=== PATIENT | female | born 1970 | race Caucasian/White ===

== ENCOUNTER 2017-06-01 22:49 | Emergency (ER) | payer OTHER ==
[2017-06-01] MEDS: KETOROLAC 60 MG/2 ML INJ. IM (23:36)
== END 2017-06-01 23:46 | disposition home or self-care (01) ==
LOC: ER 22:49
DX: S30.0XXA Contusion of lower back and pelvis, initial encounter (principal); E78.00 Pure hypercholesterolemia, unspecified; E03.9 Hypothyroidism, unspecified; W54.1XXA Struck by dog, initial encounter; Y93.89 Activity, other specified; Y99.8 Other external cause status; Y92.89 Other specified places as the place of occurrence of the external cause
CPT/HCPCS: 72220; 96372; 99284-25; J1885

== ENCOUNTER 2019-04-20 16:14 | Emergency (ER) | payer OTHER ==
[~2019-04-20] VITALS: Ht 162.6 cm; Wt 61.3 kg
[~2019-04-20 16:14] MED LIST: ERYT1OIN6 OS; NAPR-683 PO; OFLO5DRO OS
[2019-04-20 16:30] VITALS: BP 137/88
--- NOTE | 2019-04-20 17:08 | PHYS DOC ---
Past Medical History Past Medical History: High Cholesterol, Hypothyroid, Other Additional Past Medical Histor: pit tumor Past Surgical History: Other Additional Past Surgical Histo: brain sx Smoking Status: Never Smoker Alcohol Use: Rarely Drug Use: None Adult General Chief Complaint Chief Complaint: BACK PAIN OR INJURY [facility] HPI Patient is a 48 year old female who presents with right lower back pain for the past week. Patient states that the pain has been getting worse over the last several days, states she feels a shooting pain going down her right leg. Denies any history of falls. Denies any history of trauma. Does report she has osteoporosis which has been severe, caused from her thyroid medications. States she has tried some Tylenol this morning, which helped a little bit, but has not tried anything else since then. Denies any fever. Denies any urinary changes. Denies any blood in her urine. Denies history kidney stones. States she has difficulty walking at home, due to the discomfort. Denies loss of bowel or blad debby. Review of Systems Review of Systems Constitutional: Denies fever or chills [] Eyes: Denies change in visual acuity, redness, or eye pain [] HENT: Denies nasal congestion or sore throat [] Respiratory: Denies cough or shortness of breath [] Cardiovascular: No additional information not addressed in HPI [] GI: Denies abdominal pain, nausea, vomiting, bloody stools or diarrhea [] : Denies dysuria or hematuria [] Musculoskeletal: Reports lower back, right hip pain Integument: Denies rash or skin lesions [] Neurologic: Denies headache, focal weakness or sensory changes [] Endocrine: Denies polyuria or polydipsia [] All other systems were reviewed and found to be within normal limits, except as documented in this note. Current Medications Current Medications Current Medications Medications (Trade) Dose Ordered Sig/Eflix Start Time Stop Time Status Last Admin Dose Admin Cyclobenzaprine HCl (Flexeril) 10 mg 1X ONCE 04/20/19 17:15 04/20/19 17:16 DC 04/20/19 17:28 10 MG Ketorolac Tromethamine (Toradol 15mg Vial) 15 mg 1X ONCE 04/20/19 17:15 04/20/19 17:16 DC 04/20/19 17:28 15 MG Allergies Allergies Allergies Coded Allergies Type Severity Reaction Last Updated Verified No Known Drug Allergies 10/18/15 No Physical Exam Physical Exam Constitutional: Well developed, well nourished, no acute distress, non-toxic ap pearance. Chronically frail, appears uncomfortable[] Neck: Normal range of motion, no tenderness, supple, no stridor. [] Cardiovascular:Heart rate regular rhythm, no murmur [] Lungs & Thorax: Bilateral breath sounds clear to auscultation [] Skin: Warm, dry, no erythema, no rash. [] Back: Lower back spinous process tenderness without deformity, no CVA tenderness. No lesions, no bruising noted.[] Extremities: No tenderness, no cyanosis, no clubbing, ROM intact, no edema. Able to raise bilateral legs, increased discomfort when attempting to raise right leg with resulting shooting pain going down leg.[] Neurologic: Alert and oriented X 3, normal motor function, normal sensory function, no focal deficits noted. [] Psychologic: Affect normal, judgement normal, mood normal. [] Current Patient Data Vital Signs Vital Signs Date Time Temp Pulse Resp B/P (MAP) Pulse Ox O2 Delivery O2 Flow Rate FiO2 04/20/19 16:30 98.4 78 20 137/88 (104) 98 Room Air 98.4 EKG EKG [] Radiology/Procedures Radiology/Procedures [] AP and 2 lateral digital radiographs of the lumbar spine were obtained. Minimal S-shaped curvature of the thoracolumbar spine is seen. Degenerative changes consisting of vertebral endplate sclerosis and minimal to mild anterior and posterior vertebral body osteophyte formation is seen involving the mid and lower lumbar disc spaces. Degenerative changes are seen involving the facet joints throughout the mid and lower lumbar spine. No fracture or subluxation of the lumbar vertebrae is noted. Atherosclerotic calcification of the abdominal aorta and its branches is seen. Mild to moderate degenerative changes are seen involving both SI joints. A calcified phlebolith is seen within the pelvis. IMPRESSION: Degenerative changes are seen involving the lumbar spine as discussed above. No acute osseous abnormality is seen. Electronically signed by: Eloy Rai MD (04/20/2019 5:29 PM) [id number] Course & Med Decision Making Course & Med Decision Making Pertinent Labs and Imaging studies reviewed. (See chart for details) []Following medications, patient reports she is feeling better. Patient resting calmly in room at this time. We'll provide prescription for muscle relaxers. Patient to follow up with her primary care provider patient, in agreement with this plan of care with no further questions or concerns Gokul Disclaimer Gokul Disclaimer This electronic medical record was generated, in whole or in part, using a voice recognition dictation system. Departure Departure Impression: Primary Impression: Lumbar pain Disposition: HOME, SELF-CARE Condition: GOOD Referrals: UNKNOWN PCP NAME (PCP) Patient Instructions: Back Pain, Adult Additional Instructions: As we discussed, continue to take Tylenol or ibuprofen for discomfort. You may take the muscle relaxer as prescribed. Try to follow up with her primary care provider early next 5-6 days. Scripts Cyclobenzaprine Hcl (CYCLOBENZAPRINE HCL) 10 Mg Tablet 10 MG PO TID PRN for PAIN for 7 Days, #21 TAB Prov: SEGUNDO HUYNH APRN 04/20/19 SEGUNDO HUYNH APRN Apr 20, 2019 17:07
[2019-04-20] MEDS ORDERED: KETOROLAC 15 MG/ML VIAL. IM ONE (17:15)
[2019-04-20] MEDS ORDERED: CYCLOBENZAPRINE 10 MG TABLET. PO ONE (17:15)
--- NOTE | 2019-04-20 17:33 | RAD ---
Three-view lumbar spine radiographs 04/20/2019 CLINICAL HISTORY: Low back pain. AP and 2 lateral digital radiographs of the lumbar spine were obtained. Minimal S-shaped curvature of the thoracolumbar spine is seen. Degenerative changes consisting of vertebral endplate sclerosis and minimal to mild anterior and posterior vertebral body osteophyte formation is seen involving the mid and lower lumbar disc spaces. Degenerative changes are seen involving the facet joints throughout the mid and lower lumbar spine. No fracture or subluxation of the lumbar vertebrae is noted. Atherosclerotic calcification of the abdominal aorta and its branches is seen. Mild to moderate degenerative changes are seen involving both SI joints. A calcified phlebolith is seen within the pelvis. IMPRESSION: Degenerative changes are seen involving the lumbar spine as discussed above. No acute osseous abnormality is seen. Electronically signed by: Eloy Rai MD (04/20/2019 5:29 PM) [id number]
[2019-04-20] MEDS ORDERED: CYCL10TA2 PO (18:07)
== END 2019-04-20 18:20 | disposition home or self-care (01) ==
LOC: ER 16:14
DX: M54.5 Low back pain (principal); M25.551 Pain in right hip; E78.00 Pure hypercholesterolemia, unspecified; E03.9 Hypothyroidism, unspecified; Z98.890 Other specified postprocedural states
CPT/HCPCS: 72100; 96372; 99283; J1885

== ENCOUNTER 2019-10-13 17:09 | Inpatient (IN) | payer OTHER ==
[~2019-10-13] VITALS: Ht 162.6 cm; Wt 52.5 kg
[~2019-10-13 17:09] MED LIST changes: +CYCL10TA2 PO
[2019-10-13] MEDS ORDERED: ONDANSETRON PF 4 MG/2 ML VIAL. IVP ONE (17:15)
[2019-10-13] MEDS ORDERED: fentaNYL PF VIAL 100 MCG/2 ML VIAL IVP ONE (17:15)
[2019-10-13] MEDS ORDERED: FAMOTIDINE 20 MG/2 ML VIAL IVP ONE (17:15)
[2019-10-13] MEDS ORDERED: IV NORMAL SALINE 1000ML BAG 1,000 ML IV ONE (17:30)
[2019-10-13 17:35] LABS: BASO # 0.1 x10^3/uL (0.0-0.2); BASO % 1 % (0-3); EOS # 0.1 x10^3/uL (0.0-0.7); EOS % 1 % (0-3); HEMATOCRIT 41.1 % (36.0-47.0); HEMOGLOBIN 14.5 g/dL (12.0-15.5); LYMPH # 2.9 x10^3/uL (1.0-4.8); LYMPH % 26 % (24-48); MEAN CORPUSCULAR HEMOGLOBIN 34 pg (25-35); MEAN CORPUSCULAR HGB CONC 35 g/dL (31-37); MEAN CORPUSCULAR VOLUME 97 fL (79-100); MONO # 0.5 x10^3/uL (0.0-1.1); MONO % 5 % (0-9); NEUT # 7.4 x10^3/uL (1.8-7.7); NEUT % 67 % (31-73); PLATELET COUNT 214 x10^3/uL (140-400); RED BLOOD COUNT 4.25 x10^6/uL (3.50-5.40); RED CELL DISTRIBUTION WIDTH 12.4 % (11.5-14.5); WHITE BLOOD COUNT 10.9 x10^3/uL (4.0-11.0)
--- NOTE | 2019-10-13 17:38 | PHYS DOC ---
Past Medical History Past Medical History: High Cholesterol, Hypothyroid, Other Additional Past Medical Histor: PITUITARY TUMOR (LIONEL CAMPBELL DO) Past Surgical History: Other Additional Past Surgical Histo: THYROID, PITUITARY TUMOR (LIONEL CAMPBELL DO) Smoking Status: Never Smoker Alcohol Use: Rarely Drug Use: None (LIONEL CAMPBELL DO) General Adult EDM: Chief Complaint: ABDOMINAL PAIN HPI: HPI: Patient is a 49-year-old female presenting with acute abdominal pain that started this morning at approximately 0900. Patient was referred from a local urgent care after being evaluated due to significant pain and concern for possible appendicitis. Patient describes the pain as sharp and inner right lower abdomen. Patient rates the pain at a "12 out of 10" that has been present throughout the day and has been associated with nausea and vomiting. Patient has not had anything to eat or drink since last night at 10 PM. Patient denies any COVID-19 contacts or symptoms. Patient was recently tested for COVID-19 last week which resulted in a negative test. Patient denies . Reports she is postmenopausal and hasn't had a period in "years." (LIONEL CAMPBELL DO) Review of Systems: Review of Systems: Constitutional: Denies fever or chills Eyes: Denies redness or eye pain HENT: Denies nasal congestion or sore throat Respiratory: Denies cough or shortness of breath Cardiovascular: Denies chest pain or palpitations GI: Patient endorses right lower abdominal pain, nausea, and vomiting : Denies dysuria or hematuria Musculoskeletal: Denies back pain or joint pain Integument: Denies rash or skin lesions Neurologic: Denies headache, focal weakness or sensory changes Complete systems were reviewed and found to be within normal limits, except as documented in this note. (LIONEL CAMPBELL DO) Current Medications: Current Medications Medications (Trade) Dose Ordered Sig/Felix Start Time Stop Time Status Last Admin Dose Admin Famotidine (Pepcid Vial) 20 mg 1X ONCE 10/13/19 17:15 10/13/19 17:18 DC Fentanyl Citrate (Fentanyl 2ml Vial) 50 mcg 1X ONCE 10/13/19 17:15 10/13/19 17:18 DC Ondansetron HCl (Zofran) 4 mg 1X ONCE 10/13/19 17:15 10/13/19 17:18 DC Sodium Chloride 1,000 ml @ 1,000 mls/hr 1X ONCE 10/13/19 17:30 10/13/19 18:29 (LIONEL CAMPBELL DO) Allergies: Allergies: Allergies Coded Allergies Type Severity Reaction Last Updated Verified No Known Drug Allergies 10/18/15 No (LIONEL CAMPBELL DO) Physical Exam: PE: Constitutional: Well developed, well nourished, moderate acute distress, non- toxic appearance HENT: Normocephalic, atraumatic Eyes: Conjunctiva normal, no discharge Neck: Normal range of motion, supple Lungs & Thorax: Equal chest rise and fall bilaterally, no respiratory distress Abdomen: Soft, tender to palpation in right lower quadrant, diffusely tender and remaining 3, no ecchymosis or rashes present, voluntary guarding Skin: Warm, dry, no erythema, no rash Back: No tenderness, no CVA tenderness Extremities: No tenderness, ROM intact, no edema Neurologic: Alert and oriented X 3, no focal deficits noted Psychologic: Affect normal, judgment normal (LIONEL CAMPBELL DO) Current Patient Data: Vital Signs: Vital Signs Date Time Temp Pulse Resp B/P (MAP) Pulse Ox O2 Delivery O2 Flow Rate FiO2 10/13/19 17:12 97.9 85 20 130/67 (88) 97 Room Air 97.9 (LIONEL CAMPBELL DO) Labs: Laboratory Tests Test 10/13/19 17:20 10/13/19 17:25 White Blood Count 10.9 x10^3/uL Red Blood Count 4.25 x10^6/uL Hemoglobin 14.5 g/dL Hematocrit 41.1 % Mean Corpuscular Volume 97 fL Mean Corpuscular Hemoglobin 34 pg Mean Corpuscular Hemoglobin Concent 35 g/dL Red Cell Distribution Width 12.4 % Platelet Count 214 x10^3/uL Neutrophils (%) (Auto) 67 % Lymphocytes (%) (Auto) 26 % Monocytes (%) (Auto) 5 % Eosinophils (%) (Auto) 1 % Basophils (%) (Auto) 1 % Neutrophils # (Auto) 7.4 x10^3/uL Lymphocytes # (Auto) 2.9 x10^3/uL Monocytes # (Auto) 0.5 x10^3/uL Eosinophils # (Auto) 0.1 x10^3/uL Basophils # (Auto) 0.1 x10^3/uL Prothrombin Time 12.4 SEC Prothromb Time International Ratio 1.0 Activated Partial Thromboplast Time 31 SEC Sodium Level 134 mmol/L Potassium Level 3.7 mmol/L Chloride Level 97 mmol/L Carbon Dioxide Level 24 mmol/L Anion Gap 13 Blood Urea Nitrogen 7 mg/dL Creatinine 0.9 mg/dL Estimated GFR (Cockcroft-Gault) 66.8 BUN/Creatinine Ratio 8 Glucose Level 82 mg/dL Lactic Acid Level 1.9 mmol/L Calcium Level 9.0 mg/dL Magnesium Level 1.7 mg/dL Total Bilirubin 0.8 mg/dL Aspartate Amino Transf (AST/SGOT) 201 U/L Alanine Aminotransferase (ALT/SGPT) 135 U/L Alkaline Phosphatase 179 U/L Total Protein 7.4 g/dL Albumin 4.1 g/dL Albumin/Globulin Ratio 1.2 Lipase 91 U/L Current Medications Medications (Trade) Dose Ordered Sig/Felix Route PRN Reason Start Time Stop Time Status Last Admin Dose Admin Fentanyl Citrate (Fentanyl 2ml Vial) 50 mcg 1X ONCE IVP 10/13/19 17:15 10/13/19 17:18 DC 10/13/19 17:40 Ondansetron HCl (Zofran) 4 mg 1X ONCE IVP 10/13/19 17:15 10/13/19 17:18 DC 10/13/19 17:40 Famotidine (Pepcid Vial) 20 mg 1X ONCE IVP 10/13/19 17:15 10/13/19 17:18 DC 10/13/19 17:40 Sodium Chloride 1,000 ml @ 1,000 mls/hr 1X ONCE IV 10/13/19 17:30 10/13/19 18:29 DC 10/13/19 17:38 Iohexol (Omnipaque 240 Mg/ml) 30 ml 1X ONCE PO 10/13/19 18:15 10/13/19 18:18 DC 10/13/19 18:15 Iohexol (Omnipaque 300 Mg/ml) 75 ml 1X ONCE IV 10/13/19 18:15 10/13/19 18:18 DC 10/13/19 18:15 Fentanyl Citrate (Fentanyl 2ml Vial) 50 mcg 1X ONCE IV 10/13/19 18:45 10/13/19 18:46 DC 10/13/19 18:34 Info (CONTRAST GIVEN -- Rx MONITORING) 1 each PRN DAILY PRN MC SEE COMMENTS 10/13/19 18:30 10/15/19 18:29 Magnesium Sulfate 50 ml @ 25 mls/hr 1X ONCE IV 10/13/19 19:30 10/13/19 21:29 10/13/19 20:03 Piperacillin Sod/ Tazobactam Sod 3.375 gm/Sodium Chloride 50 ml @ 100 mls/hr 1X ONCE IV 10/13/19 20:00 10/13/19 20:29 Cancel Morphine Sulfate (Morphine Sulfate) 4 mg 1X ONCE IV 10/13/19 19:45 10/13/19 19:46 DC 10/13/19 19:37 Ondansetron HCl (Zofran) 4 mg PRN Q8HRS PRN IV NAUSEA/VOMITING 10/13/19 20:00 10/14/19 19:59 Morphine Sulfate (Morphine Sulfate) 4 mg PRN Q2HR PRN IV PAIN 10/13/19 20:00 10/14/19 19:59 Sodium Chloride 1,000 ml @ 125 mls/hr Q8H IV 10/13/19 19:53 10/14/19 19:52 10/13/19 19:53 Piperacillin Sod/ Tazobactam Sod 3.375 gm/Sodium Chloride 50 ml @ 100 mls/hr 1X IV 10/13/19 20:00 Vital Signs: Vital Signs Date Time Temp Pulse Resp B/P (MAP) Pulse Ox O2 Delivery O2 Flow Rate FiO2 10/13/19 18:17 82 18 123/75 (91) 97 Room Air 10/13/19 17:12 97.9 85 20 130/67 (88) 97 Room Air 97.9 (KENNY DE JESUS MD) Radiology/Procedures: Radiology/Procedures: [facility] [address] [place] [address] IMAGING REPORT Signed PATIENT: PETEY SEO ACCOUNT: [id number] : 1970 LOCATION: ER AGE: 49 SEX: F EXAM STATUS: REG ER ORD. PHYSICIAN: LIONEL CAMPBELL DO REASON: RLQ abdominal pain eval for acute appendicitis PROCEDURE: CT ABD PELV W/ORAL&IV CONTRAST CT abdomen and pelvis with contrast History: Right lower quadrant abdominal pain Technique: After the administration of intravenous contrast, CT imaging was performed of the abdomen and pelvis. Oral contrast was also given. Multiplanar images are reviewed. Exposure: One or more of the following individualized dose reduction techniques were utilized for this examination: 1. Automated exposure control 2. Adjustment of the mA and/or kV according to patient size 3. Use of iterative reconstruction technique. Comparison: None Findings: As best seen on images 58 through 62, there is dilated appendix with some internal fluid left at 1.6 m in caliber. There is some adjacent mild hazy and strandy change. There is wall thickening greater near the orifice of appendix. No abscess or free air is identified. Remainder of the bowel is not significantly dilated. There is diffuse prominent hepatic steatosis. Gallbladder is present without obvious mucosal abnormality by CT. Both kidneys enhance, no significant hydronephrosis. There is a 1 cm cyst of the mid to inferior left kidney, also 1 cm cyst of the inferior left kidney. Small hypodense focus of the mid to superior left kidney 0.4 cm is too small to accurately characterize. There is 2.5 cm superior right renal cyst, adjacent smaller focus about 0.7 cm otherwise difficult to accurately characterize given smaller size. There is no adrenal nodularity. No focal abnormality is identified of the pancreas or spleen. There is a small accessory spleen There is left lower lobe calcified nodule at the lung base. There is a 0.3 similar noncalcified left lower lobe pulmonary nodule image 3 series 2. There is mild calcified plaque of the abdominal aorta. Impression: 1. There is evidence of acute appendicitis, no abscess or free air. 2. There is diffuse prominent hepatic steatosis. 3. There are bilateral renal cysts, some other smaller hypodense foci of the kidneys bilaterally too small to further accurately characterize. 4. There is a small left lower lobe noncalcified pulmonary nodule. If increased risk factors for neoplasm, optional 12 month follow-up could be performed as per revised Fleischner guidelines, no additional follow up needed if low risk factors. Electronically signed by: Juan Pablo Berry MD (10/13/2019 7:15 PM) [facility] DICTATED and SIGNED BY: JUAN PABLO BERRY MD DATE: 10/13/191914 (KENNY DE JESUS MD) Course & Med Decision Making: Course & Med Decision Making Pertinent Labs and Imaging studies reviewed. (See chart for details) 49-year-old female referred to the ED by local urgent care due to severe right lower quadrant pain that started this morning. Labs obtained and posted to chart. WBC and lactic acid within normal limits. Hypomagnesemia addressed. LFTs elevated. CT of the abdomen was ordered and labs were drawn. Pain medications were provided and awaiting results. Concern for acute appendicitis. 1800- Sign out given Dr. De Jesus for further evaluation and final disposition. Discussed current findings and plan with patient, who acknowledges understanding and agreement. (LIONEL CAMPBELL DO) Course & Med Decision Making Received signout from Dr. Campbell regarding patient with right lower quadrant pain. CT shows acute sinusitis. Zosyn has been ordered. Discussed with Dr. Godwin who will operate on the patient the morning. Patient will be admitted to Dr. King. (KENNY DE JESUS MD) Dragon Disclaimer: Dragon Disclaimer: This electronic medical record was generated, in whole or in part, using a voice recognition dictation system. (LIONEL CAMPBELL DO) Departure Departure Impression: Primary Impression: Acute appendicitis Additional Impressions: Abdominal pain Qualified Codes: R10.31 - Right lower quadrant pain Hypomagnesemia Elevated LFTs Disposition: ADMITTED INPATIENT Admitting Physician: SELIN (KENNY DE JESUS MD) Condition: STABLE (dinesh) Referrals: NO PCP (PCP) Justicifation of Admission Dx: Justifications for Admission: Justification of Admission Dx: N/A (LIONEL CAMPBELL DO) Justification of Admission Dx: Yes (KENNY DE JESUS MD) LIONEL CAMPBELL DO Oct 13, 2019 17:38 KENNY DE JESUS MD Oct 13, 2019 19:25
[2019-10-13 17:45] LABS: PROTHROMBIN TIME PATIENT 12.4 SEC (11.7-14.0)
[2019-10-13 18:03] LABS: CREATININE 0.9 mg/dL (0.6-1.0); GFR 66.8; POTASSIUM 3.7 mmol/L (3.5-5.1)
[2019-10-13 18:09] LABS: ALBUMIN 4.1 g/dL (3.4-5.0); ALBUMIN/GLOBULIN RATIO 1.2 (1.0-1.7); TOTAL BILIRUBIN 0.8 mg/dL (0.2-1.0); TOTAL PROTEIN 7.4 g/dL (6.4-8.2)
[2019-10-13] MEDS ORDERED: IOHEXOL 240 MG/ML 50ML VIAL. PO ONE (18:15)
[2019-10-13] MEDS ORDERED: IOHEXOL 300 MG/ML 100ML VIAL. IV ONE (18:15)
[2019-10-13] MEDS ORDERED: CONTRAST GIVEN. MC PRN (18:30)
[2019-10-13] MEDS ORDERED: fentaNYL PF VIAL 100 MCG/2 ML VIAL IV ONE (18:45)
--- NOTE | 2019-10-13 19:18 | RAD ---
CT abdomen and pelvis with contrast History: Right lower quadrant abdominal pain Technique: After the administration of intravenous contrast, CT imaging was performed of the abdomen and pelvis. Oral contrast was also given. Multiplanar images are reviewed. Exposure: One or more of the following individualized dose reduction techniques were utilized for this examination: 1. Automated exposure control 2. Adjustment of the mA and/or kV according to patient size 3. Use of iterative reconstruction technique. Comparison: None Findings: As best seen on images 58 through 62, there is dilated appendix with some internal fluid left at 1.6 m in caliber. There is some adjacent mild hazy and strandy change. There is wall thickening greater near the orifice of appendix. No abscess or free air is identified. Remainder of the bowel is not significantly dilated. There is diffuse prominent hepatic steatosis. Gallbladder is present without obvious mucosal abnormality by CT. Both kidneys enhance, no significant hydronephrosis. There is a 1 cm cyst of the mid to inferior left kidney, also 1 cm cyst of the inferior left kidney. Small hypodense focus of the mid to superior left kidney 0.4 cm is too small to accurately characterize. There is 2.5 cm superior right renal cyst, adjacent smaller focus about 0.7 cm otherwise difficult to accurately characterize given smaller size. There is no adrenal nodularity. No focal abnormality is identified of the pancreas or spleen. There is a small accessory spleen There is left lower lobe calcified nodule at the lung base. There is a 0.3 similar noncalcified left lower lobe pulmonary nodule image 3 series 2. There is mild calcified plaque of the abdominal aorta. Impression: 1. There is evidence of acute appendicitis, no abscess or free air. 2. There is diffuse prominent hepatic steatosis. 3. There are bilateral renal cysts, some other smaller hypodense foci of the kidneys bilaterally too small to further accurately characterize. 4. There is a small left lower lobe noncalcified pulmonary nodule. If increased risk factors for neoplasm, optional 12 month follow-up could be performed as per revised Fleischner guidelines, no additional follow up needed if low risk factors. Electronically signed by: Yung Cagle MD (10/13/2019 7:15 PM) [facility]
[2019-10-13] MEDS ORDERED: MAGNESIUM SULFATE 2GM 50 ML IV ONE (19:30)
[2019-10-13] MEDS ORDERED: MORPHINE SULFATE 4 MG/ML VIAL. IV ONE (19:45)
[2019-10-13] MEDS: IV NORMAL SALINE 1000ML BAG 1,000 ML IV SCH (19:53)
[2019-10-13] MEDS ORDERED: PIPERACILLIN/TAZOBACTAM 3.375 GM in IV NORMAL SALINE 50ML 50 ML IV ONE (20:00)
[2019-10-13] MEDS ORDERED: PIPERACILLIN/TAZOBACTAM 3.375 GM in IV NORMAL SALINE 50ML 50 ML IV SCH (20:00)
[2019-10-13 21:00] LABS: BILIRUBIN,URINE NEGATIVE (NEG); CLARITY,URINE CLEAR; COLOR,URINE YELLOW; NITRITE,URINE NEGATIVE (NEG); PH,URINE 6.5 (<5.0-8.0); PROTEIN,URINE NEGATIVE (NEG-TRACE)
[2019-10-13 21:06] LABS: BACTERIA,URINE 0 /HPF (0-FEW); RBC,URINE 0 /HPF (0-2); SQUAMOUS EPITHELIAL CELL,UR FEW /LPF
--- NOTE | 2019-10-13 21:59 | PDOC1 ---
History and Physical Date of Service: DOS: DATE: 10/13/19 TIME: 21:55 Chief Complaint: Chief Complain: Acute abdominal pain History of Present Illness: HPI: Patient is a 49-year-old female with past medical history of hypothyroidism, pituitary mass status post resection, hype osteoporosis who presents with abdominal pain that started approximately 9:00 this morning. Patient is referred from a local urgent care and concern for possible appendicitis. Patient's pain is described as sharp and in the right lower quadrant. Pain is 10 out of 10. There is associated nausea vomiting. Patient has not eating anything since 10:00 last night. Denies shortness of breath, dysuria, bloody stools. 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 History of pituitary surgery for pituitary mass C-sections Allergies: Allergies: Coded Allergies: No Known Drug Allergies (Unverified , 10/18/15) Family History: Family History: Review and none reported Social History: Social History: Drinks bourbon daily Current Medications: Current Medications Current Medications Fentanyl Citrate (Fentanyl 2ml Vial) 50 mcg 1X ONCE IVP Last administered on 10/13/19at 17:40; Start 10/13/19 at 17:15; Stop 10/13/19 at 17:18; Status DC Ondansetron HCl (Zofran) 4 mg 1X ONCE IVP Last administered on 10/13/19at 17:40; Start 10/13/19 at 17:15; Stop 10/13/19 at 17:18; Status DC Famotidine (Pepcid Vial) 20 mg 1X ONCE IVP Last administered on 10/13/19at 17:40; Start 10/13/19 at 17:15; Stop 10/13/19 at 17:18; Status DC Sodium Chloride 1,000 ml @ 1,000 mls/hr 1X ONCE IV Last administered on 10/13/19at 17:38; Start 10/13/19 at 17:30; Stop 10/13/19 at 18:29; Status DC Iohexol (Omnipaque 240 Mg/ml) 30 ml 1X ONCE PO Last administered on 10/13/19at 18:15; Start 10/13/19 at 18:15; Stop 10/13/19 at 18:18; Status DC Iohexol (Omnipaque 300 Mg/ml) 75 ml 1X ONCE IV Last administered on 10/13/19at 18:15; Start 10/13/19 at 18:15; Stop 10/13/19 at 18:18; Status DC Fentanyl Citrate (Fentanyl 2ml Vial) 50 mcg 1X ONCE IV Last administered on 10/13/19at 18:34; Start 10/13/19 at 18:45; Stop 10/13/19 at 18:46; Status DC Info (CONTRAST GIVEN -- Rx MONITORING) 1 each PRN DAILY PRN MC SEE COMMENTS; Start 10/13/19 at 18:30; Stop 10/15/19 at 18:29 Magnesium Sulfate 50 ml @ 25 mls/hr 1X ONCE IV Last administered on 10/13/19at 20:03; Start 10/13/19 at 19:30; Stop 10/13/19 at 21:29; Status DC Piperacillin Sod/ Tazobactam Sod 3.375 gm/Sodium Chloride 50 ml @ 100 mls/hr 1X ONCE IV ; Start 10/13/19 at 20:00; Stop 10/13/19 at 20:29; Status Cancel Morphine Sulfate (Morphine Sulfate) 4 mg 1X ONCE IV Last administered on 10/13/19at 19:37; Start 10/13/19 at 19:45; Stop 10/13/19 at 19:46; Status DC Ondansetron HCl (Zofran) 4 mg PRN Q8HRS PRN IV NAUSEA/VOMITING; Start 10/13/19 at 20:00; Stop 10/14/19 at 19:59 Morphine Sulfate (Morphine Sulfate) 4 mg PRN Q2HR PRN IV PAIN; Start 10/13/19 at 20:00; Stop 10/14/19 at 19:59 Sodium Chloride 1,000 ml @ 125 mls/hr Q8H IV Last administered on 10/13/19at 19:53; Start 10/13/19 at 19:53; Stop 10/14/19 at 19:52 Piperacillin Sod/ Tazobactam Sod 3.375 gm/Sodium Chloride 50 ml @ 100 mls/hr 1X IV ; Start 10/13/19 at 20:00 Active Scripts Active Cyclobenzaprine Hcl 10 Mg Tablet 10 Mg PO TID PRN 7 Days Naprosyn (Naproxen) 500 Mg Tablet 500 Mg PO BID Ocuflox (Ofloxacin) 5 Ml Drops 1 Drop OS QID Use during the day and while outside the home. Erythromycin (Erythromycin Base) 3.5 Gm Oint...g. 1 [place] OS BID Use at home and at night. ROS: Review of Systems Review of System REVIEW OF SYSTEMS: GENERAL: Denies weakness SKIN: No bruising, hair changes or rashes. EYES: No blurred, double or loss of vision. NOSE AND THROAT: No history of nosebleeds, hoarseness or sore throat. HEART: No history of palpitations, chest pain or shortness of breath on exertion. LUNGS: Denies cough, hemoptysis, wheezing or shortness of breath. GASTROINTESTINAL: Denies changes in appetite, nausea, vomiting, diarrhea or constipation. GENITOURINARY: No history of frequency, urgency, hesitancy or nocturia. NEUROLOGIC: Denies history of numbness, tingling, or tremor. PSYCHIATRIC: No history of panic, anxiety or depression. ENDOCRINE: No history of heat or cold intolerance, polyuria or polydipsia. EXTREMITIES: Denies joint pain, pain on walking or stiffness. Physical Exam: Vital Signs: Vital Signs Date Time Temp Pulse Resp B/P (MAP) Pulse Ox O2 Delivery O2 Flow Rate FiO2 10/13/19 21:20 80 101/65 (77) 93 Room Air 10/13/19 18:17 18 10/13/19 17:12 97.9 97.9 Physcial Exam: GEN: No apparent distress. Alert and oriented HEENT: Normal cephalic, atraumatic, external auditory canals are patent EYES: Extraocular muscles are intact, pupil are equally round and reactive to light and accommodation MUSCULOSKELETAL: Well developed , well nourished, good range of motion ENDOCRINE: No thyromegaly was palpated LYMPHATICS: No cervical chain or axillary nodes were noted HEMATOPOIETIC: No bruising NECK: Supple, no JVD, no thyromegaly was noted LUNGS: Clear to auscultation in all lung fierro without rhonchi or wheezing HEART: RRR, S!, S2 present. Peripheral pulses intact, no obvious murmurs noted ABDOMEN: Soft, nontender. Positive bowel sounds, no organomegaly, normal bowel sounds EXTREMITIES: Without clubbing, cyanosis, or edema. Pedal pulses intact. Negative Homans sign NEUROLOGIC: Normal speech and tone. A&O x 3, moves all extremities, no obvious focal deficits PSYCHIATRIC: Normal affect, normal mood. Stable SKIN: No ulcerations or rashes, good skin turgor, no jaundice VASCULAR: Good capillary refill, neurovascular bundle appears to be intact Labs: Labs: Laboratory Tests Test 10/13/19 17:20 10/13/19 17:25 10/13/19 20:44 White Blood Count 10.9 x10^3/uL (4.0-11.0) Red Blood Count 4.25 x10^6/uL (3.50-5.40) Hemoglobin 14.5 g/dL (12.0-15.5) Hematocrit 41.1 % (36.0-47.0) Mean Corpuscular Volume 97 fL (79-100) Mean Corpuscular Hemoglobin 34 pg (25-35) Mean Corpuscular Hemoglobin Concent 35 g/dL (31-37) Red Cell Distribution Width 12.4 % (11.5-14.5) Platelet Count 214 x10^3/uL (140-400) Neutrophils (%) (Auto) 67 % (31-73) Lymphocytes (%) (Auto) 26 % (24-48) Monocytes (%) (Auto) 5 % (0-9) Eosinophils (%) (Auto) 1 % (0-3) Basophils (%) (Auto) 1 % (0-3) Neutrophils # (Auto) 7.4 x10^3/uL (1.8-7.7) Lymphocytes # (Auto) 2.9 x10^3/uL (1.0-4.8) Monocytes # (Auto) 0.5 x10^3/uL (0.0-1.1) Eosinophils # (Auto) 0.1 x10^3/uL (0.0-0.7) Basophils # (Auto) 0.1 x10^3/uL (0.0-0.2) Prothrombin Time 12.4 SEC (11.7-14.0) Prothromb Time International Ratio 1.0 (0.8-1.1) Activated Partial Thromboplast Time 31 SEC (24-38) Sodium Level 134 mmol/L (136-145) Potassium Level 3.7 mmol/L (3.5-5.1) Chloride Level 97 mmol/L (98-107) Carbon Dioxide Level 24 mmol/L (21-32) Anion Gap 13 (6-14) Blood Urea Nitrogen 7 mg/dL (7-20) Creatinine 0.9 mg/dL (0.6-1.0) Estimated GFR (Cockcroft-Gault) 66.8 BUN/Creatinine Ratio 8 (6-20) Glucose Level 82 mg/dL (70-99) Lactic Acid Level 1.9 mmol/L (0.4-2.0) Calcium Level 9.0 mg/dL (8.5-10.1) Magnesium Level 1.7 mg/dL (1.8-2.4) Total Bilirubin 0.8 mg/dL (0.2-1.0) Aspartate Amino Transf (AST/SGOT) 201 U/L (15-37) Alanine Aminotransferase (ALT/SGPT) 135 U/L (14-59) Alkaline Phosphatase 179 U/L (46-116) Total Protein 7.4 g/dL (6.4-8.2) Albumin 4.1 g/dL (3.4-5.0) Albumin/Globulin Ratio 1.2 (1.0-1.7) Lipase 91 U/L (73-393) Urine Collection Type Unknown Urine Color Yellow Urine Clarity Clear Urine pH 6.5 (<5.0-8.0) Urine Specific [place] 1.020 (1.000-1.030) Urine Protein Negative mg/dL (NEG-TRACE) Urine Glucose (UA) Negative mg/dL (NEG) Urine Ketones (Stick) Trace mg/dL (NEG) Urine Blood Negative (NEG) Urine Nitrite Negative (NEG) Urine Bilirubin Negative (NEG) Urine Urobilinogen Dipstick 1.0 mg/dL (0.2 mg/dL) Urine Leukocyte Esterase Small (NEG) Urine RBC 0 /HPF (0-2) Urine WBC 1-4 /HPF (0-4) Urine Squamous Epithelial Cells Few /LPF Urine Bacteria 0 /HPF (0-FEW) Urine Mucus Mod /LPF SARS-CoV-2 Antigen (Rapid) Negative (NEGATIVE) Laboratory Tests Test 10/13/19 17:20 10/13/19 17:25 10/13/19 20:44 White Blood Count 10.9 x10^3/uL (4.0-11.0) Red Blood Count 4.25 x10^6/uL (3.50-5.40) Hemoglobin 14.5 g/dL (12.0-15.5) Hematocrit 41.1 % (36.0-47.0) Mean Corpuscular Volume 97 fL (79-100) Mean Corpuscular Hemoglobin 34 pg (25-35) Mean Corpuscular Hemoglobin Concent 35 g/dL (31-37) Red Cell Distribution Width 12.4 % (11.5-14.5) Platelet Count 214 x10^3/uL (140-400) Neutrophils (%) (Auto) 67 % (31-73) Lymphocytes (%) (Auto) 26 % (24-48) Monocytes (%) (Auto) 5 % (0-9) Eosinophils (%) (Auto) 1 % (0-3) Basophils (%) (Auto) 1 % (0-3) Neutrophils # (Auto) 7.4 x10^3/uL (1.8-7.7) Lymphocytes # (Auto) 2.9 x10^3/uL (1.0-4.8) Monocytes # (Auto) 0.5 x10^3/uL (0.0-1.1) Eosinophils # (Auto) 0.1 x10^3/uL (0.0-0.7) Basophils # (Auto) 0.1 x10^3/uL (0.0-0.2) Prothrombin Time 12.4 SEC (11.7-14.0) Prothromb Time International Ratio 1.0 (0.8-1.1) Activated Partial Thromboplast Time 31 SEC (24-38) Sodium Level 134 mmol/L (136-145) Potassium Level 3.7 mmol/L (3.5-5.1) Chloride Level 97 mmol/L (98-107) Carbon Dioxide Level 24 mmol/L (21-32) Anion Gap 13 (6-14) Blood Urea Nitrogen 7 mg/dL (7-20) Creatinine 0.9 mg/dL (0.6-1.0) Estimated GFR (Cockcroft-Gault) 66.8 BUN/Creatinine Ratio 8 (6-20) Glucose Level 82 mg/dL (70-99) Lactic Acid Level 1.9 mmol/L (0.4-2.0) Calcium Level 9.0 mg/dL (8.5-10.1) Magnesium Level 1.7 mg/dL (1.8-2.4) Total Bilirubin 0.8 mg/dL (0.2-1.0) Aspartate Amino Transf (AST/SGOT) 201 U/L (15-37) Alanine Aminotransferase (ALT/SGPT) 135 U/L (14-59) Alkaline Phosphatase 179 U/L (46-116) Total Protein 7.4 g/dL (6.4-8.2) Albumin 4.1 g/dL (3.4-5.0) Albumin/Globulin Ratio 1.2 (1.0-1.7) Lipase 91 U/L (73-393) Urine Collection Type Unknown Urine Color Yellow Urine Clarity Clear Urine pH 6.5 (<5.0-8.0) Urine Specific [place] 1.020 (1.000-1.030) Urine Protein Negative mg/dL (NEG-TRACE) Urine Glucose (UA) Negative mg/dL (NEG) Urine Ketones (Stick) Trace mg/dL (NEG) Urine Blood Negative (NEG) Urine Nitrite Negative (NEG) Urine Bilirubin Negative (NEG) Urine Urobilinogen Dipstick 1.0 mg/dL (0.2 mg/dL) Urine Leukocyte Esterase Small (NEG) Urine RBC 0 /HPF (0-2) Urine WBC 1-4 /HPF (0-4) Urine Squamous Epithelial Cells Few /LPF Urine Bacteria 0 /HPF (0-FEW) Urine Mucus Mod /LPF SARS-CoV-2 Antigen (Rapid) Negative (NEGATIVE) Images: Images CT abdomen pelvis Impression: 1. There is evidence of acute appendicitis, no abscess or free air. 2. There is diffuse prominent hepatic steatosis. 3. There are bilateral renal cysts, some other smaller hypodense foci of the kidneys bilaterally too small to further accurately characterize. 4. There is a small left lower lobe noncalcified pulmonary nodule. If increased risk factors for neoplasm, optional 12 month follow-up could be performed as per revised Fleischner guidelines, no additional follow up needed if low risk factors. Assessment/Plan Assessment/Plan Acute abdominal pain due to acute appendicitis Admit to medicine Pending surgical evaluation Likely OR in the morning tomorrow Continue IV morphine PRN Continue IV fluids Continue IV Zosyn Serial abdominal exams Follow-up blood cultures Lovenox for DVT prophylaxis ADA diet Full code Discussed with RN and SW Disposition [facility] Surrogate decision maker is self Justifications for Admission Other Justification RAFFI HARDING MD Oct 13, 2019 21:59
[2019-10-13 22:00] VITALS: BP 108/75
[2019-10-13] MEDS: ENOXAPARIN 40 MG/0.4 ML SYRINGE. SQ SCH (22:00)
--- NOTE | 2019-10-13 22:10 | NUR ---
Patient admitted from ER to room 420 per cart. Admitting diagnosis: RLQ Abdominal pain with nausea and vomiting since 0900 this am. Patient went to urgent care and was told to go to ER for possible Appendicitis. CT Scan positive for acute appendicitis. Dr. Godwin will do surgery in the am of 10/13. Patient is alert and oriented x4. Patient has NKA. Patient denies and stated that she hasn't had a period in years. Patient is in moderate distress due to pain with nausea and vomiting. Will continue to monitor.
--- NOTE | 2019-10-13 22:10 | NUR ---
Oksana held. Surgery in the am.
[2019-10-13] MEDS: MORPHINE SULFATE 4 MG/ML VIAL. IV PRN (22:28)
[2019-10-14] VITALS (12 sets, daily range): BP systolic 82–160; BP diastolic 46–97
[2019-10-14] MEDS: MORPHINE SULFATE 4 MG/ML VIAL. IV PRN ×3 (01:12→11:17)
[2019-10-14] MEDS: ONDANSETRON PF 4 MG/2 ML VIAL. IV PRN ×2 (01:40→11:16)
[2019-10-14] MEDS: IV NORMAL SALINE 1000ML BAG 1,000 ML IV SCH ×2 (03:10→11:09)
--- NOTE | 2019-10-14 08:15 | PDOC2 ---
CONSULT Date of Consult Date of Consult DATE: 10/14/19 TIME: 08:12 Reason for Consult Reason for Consult: Abdominal pain Referring Physician Referring Physician: Lavern Identification/Chief Complaint Chief Complaint Abdominal pain nausea vomiting Source Source: Patient History of Present Illness Reason for Visit: 49-year-old female has complained of right lower quadrant abdominal pain with nausea and occasional vomiting over the last 24 hours. Came to the emergency department for further evaluation CT scan was done which showed signs consistent with acute appendicitis no evidence of abscess or perforation Past Medical History Cardiovascular: No pertinent hx Pulmonary: No pertinent hx GI: No pertinent hx Heme/Onc: No pertinent hx Hepatobiliary: No pertinent hx Psych: No pertinent hx Rheumatologic: No pertinent hx ENT: No pertinent hx Renal/: No pertinent hx Endocrine: No pertinent hx Dermatology: No pertinent hx Past Surgical History Past Surgical History: Family History Family History: No Significant Social History No ALCOHOL: none Drugs: None Lives: with Family Current Problem List Problem List Problems Medical Problems: (1) Abdominal pain Status: Acute (2) Acute appendicitis Status: Acute (3) Elevated LFTs Status: Acute (4) Hypomagnesemia Status: Acute Current Medications Current Medications Current Medications Fentanyl Citrate (Fentanyl 2ml Vial) 50 mcg 1X ONCE IVP Last administered on 10/13/19at 17:40; Start 10/13/19 at 17:15; Stop 10/13/19 at 17:18; Status DC Ondansetron HCl (Zofran) 4 mg 1X ONCE IVP Last administered on 10/13/19at 17:40; Start 10/13/19 at 17:15; Stop 10/13/19 at 17:18; Status DC Famotidine (Pepcid Vial) 20 mg 1X ONCE IVP Last administered on 10/13/19at 17:40; Start 10/13/19 at 17:15; Stop 10/13/19 at 17:18; Status DC Sodium Chloride 1,000 ml @ 1,000 mls/hr 1X ONCE IV Last administered on 10/13/19at 17:38; Start 10/13/19 at 17:30; Stop 10/13/19 at 18:29; Status DC Iohexol (Omnipaque 240 Mg/ml) 30 ml 1X ONCE PO Last administered on 10/13/19at 18:15; Start 10/13/19 at 18:15; Stop 10/13/19 at 18:18; Status DC Iohexol (Omnipaque 300 Mg/ml) 75 ml 1X ONCE IV Last administered on 10/13/19at 18:15; Start 10/13/19 at 18:15; Stop 10/13/19 at 18:18; Status DC Fentanyl Citrate (Fentanyl 2ml Vial) 50 mcg 1X ONCE IV Last administered on 10/13/19at 18:34; Start 10/13/19 at 18:45; Stop 10/13/19 at 18:46; Status DC Info (CONTRAST GIVEN -- Rx MONITORING) 1 each PRN DAILY PRN MC SEE COMMENTS; Start 10/13/19 at 18:30; Stop 10/15/19 at 18:29 Magnesium Sulfate 50 ml @ 25 mls/hr 1X ONCE IV Last administered on 10/13/19at 20:03; Start 10/13/19 at 19:30; Stop 10/13/19 at 21:29; Status DC Piperacillin Sod/ Tazobactam Sod 3.375 gm/Sodium Chloride 50 ml @ 100 mls/hr 1X ONCE IV ; Start 10/13/19 at 20:00; Stop 10/13/19 at 20:29; Status Cancel Morphine Sulfate (Morphine Sulfate) 4 mg 1X ONCE IV Last administered on 10/13/19at 19:37; Start 10/13/19 at 19:45; Stop 10/13/19 at 19:46; Status DC Ondansetron HCl (Zofran) 4 mg PRN Q8HRS PRN IV NAUSEA/VOMITING Last administered on 10/14/19at 01:40; Start 10/13/19 at 20:00; Stop 10/14/19 at 19:59 Morphine Sulfate (Morphine Sulfate) 4 mg PRN Q2HR PRN IV PAIN Last administered on 10/14/19at 06:45; Start 10/13/19 at 20:00; Stop 10/14/19 at 19:59 Sodium Chloride 1,000 ml @ 125 mls/hr Q8H IV Last administered on 10/14/19at 03:10; Start 10/13/19 at 19:53; Stop 10/14/19 at 19:52 Piperacillin Sod/ Tazobactam Sod 3.375 gm/Sodium Chloride 50 ml @ 100 mls/hr 1X IV ; Start 10/13/19 at 20:00 Enoxaparin Sodium (Lovenox 40mg Syringe) 40 mg Q24H SQ ; Start 10/13/19 at 22:00 Active Scripts Active Cyclobenzaprine Hcl 10 Mg Tablet 10 Mg PO TID PRN 7 Days Naprosyn (Naproxen) 500 Mg Tablet 500 Mg PO BID Ocuflox (Ofloxacin) 5 Ml Drops 1 Drop OS QID Use during the day and while outside the home. Erythromycin (Erythromycin Base) 3.5 Gm Oint...g. 1 Rochelle OS BID Use at home and at night. Allergies Allergies: Coded Allergies: No Known Drug Allergies (Unverified , 10/18/15) ROS Gastrointestinal: Yes Nausea, Yes Vomiting, Yes Abdominal Pain Physical Exam General: Alert, Oriented X3, Cooperative, moderate distress HEENT: Atraumatic, EOMI Lungs: Clear to auscultation, Normal air movement Heart: Regular rate, No murmurs Abdomen: Normal bowel sounds, Soft, Other (Tender right lower quadrant) Extremities: No edema Neuro: Normal speech Psych/Mental Status: Mental status NL Vitals VITALS Vital Signs Date Time Temp Pulse Resp B/P (MAP) Pulse Ox O2 Delivery O2 Flow Rate FiO2 10/14/19 07:15 20 Room Air 10/14/19 07:00 98.4 86 160/54 (89) 91 2.0 98.4 Labs Labs Laboratory Tests Test 10/13/19 17:20 10/13/19 17:25 10/13/19 20:44 White Blood Count 10.9 x10^3/uL (4.0-11.0) Red Blood Count 4.25 x10^6/uL (3.50-5.40) Hemoglobin 14.5 g/dL (12.0-15.5) Hematocrit 41.1 % (36.0-47.0) Mean Corpuscular Volume 97 fL (79-100) Mean Corpuscular Hemoglobin 34 pg (25-35) Mean Corpuscular Hemoglobin Concent 35 g/dL (31-37) Red Cell Distribution Width 12.4 % (11.5-14.5) Platelet Count 214 x10^3/uL (140-400) Neutrophils (%) (Auto) 67 % (31-73) Lymphocytes (%) (Auto) 26 % (24-48) Monocytes (%) (Auto) 5 % (0-9) Eosinophils (%) (Auto) 1 % (0-3) Basophils (%) (Auto) 1 % (0-3) Neutrophils # (Auto) 7.4 x10^3/uL (1.8-7.7) Lymphocytes # (Auto) 2.9 x10^3/uL (1.0-4.8) Monocytes # (Auto) 0.5 x10^3/uL (0.0-1.1) Eosinophils # (Auto) 0.1 x10^3/uL (0.0-0.7) Basophils # (Auto) 0.1 x10^3/uL (0.0-0.2) Prothrombin Time 12.4 SEC (11.7-14.0) Prothromb Time International Ratio 1.0 (0.8-1.1) Activated Partial Thromboplast Time 31 SEC (24-38) Sodium Level 134 mmol/L (136-145) Potassium Level 3.7 mmol/L (3.5-5.1) Chloride Level 97 mmol/L (98-107) Carbon Dioxide Level 24 mmol/L (21-32) Anion Gap 13 (6-14) Blood Urea Nitrogen 7 mg/dL (7-20) Creatinine 0.9 mg/dL (0.6-1.0) Estimated GFR (Cockcroft-Gault) 66.8 BUN/Creatinine Ratio 8 (6-20) Glucose Level 82 mg/dL (70-99) Lactic Acid Level 1.9 mmol/L (0.4-2.0) Calcium Level 9.0 mg/dL (8.5-10.1) Magnesium Level 1.7 mg/dL (1.8-2.4) Total Bilirubin 0.8 mg/dL (0.2-1.0) Aspartate Amino Transf (AST/SGOT) 201 U/L (15-37) Alanine Aminotransferase (ALT/SGPT) 135 U/L (14-59) Alkaline Phosphatase 179 U/L (46-116) Total Protein 7.4 g/dL (6.4-8.2) Albumin 4.1 g/dL (3.4-5.0) Albumin/Globulin Ratio 1.2 (1.0-1.7) Lipase 91 U/L (73-393) Urine Collection Type Unknown Urine Color Yellow Urine Clarity Clear Urine pH 6.5 (<5.0-8.0) Urine Specific [place] 1.020 (1.000-1.030) Urine Protein Negative mg/dL (NEG-TRACE) Urine Glucose (UA) Negative mg/dL (NEG) Urine Ketones (Stick) Trace mg/dL (NEG) Urine Blood Negative (NEG) Urine Nitrite Negative (NEG) Urine Bilirubin Negative (NEG) Urine Urobilinogen Dipstick 1.0 mg/dL (0.2 mg/dL) Urine Leukocyte Esterase Small (NEG) Urine RBC 0 /HPF (0-2) Urine WBC 1-4 /HPF (0-4) Urine Squamous Epithelial Cells Few /LPF Urine Bacteria 0 /HPF (0-FEW) Urine Mucus Mod /LPF SARS-CoV-2 Antigen (Rapid) Negative (NEGATIVE) Laboratory Tests Test 10/13/19 17:20 10/13/19 17:25 10/13/19 20:44 White Blood Count 10.9 x10^3/uL (4.0-11.0) Red Blood Count 4.25 x10^6/uL (3.50-5.40) Hemoglobin 14.5 g/dL (12.0-15.5) Hematocrit 41.1 % (36.0-47.0) Mean Corpuscular Volume 97 fL (79-100) Mean Corpuscular Hemoglobin 34 pg (25-35) Mean Corpuscular Hemoglobin Concent 35 g/dL (31-37) Red Cell Distribution Width 12.4 % (11.5-14.5) Platelet Count 214 x10^3/uL (140-400) Neutrophils (%) (Auto) 67 % (31-73) Lymphocytes (%) (Auto) 26 % (24-48) Monocytes (%) (Auto) 5 % (0-9) Eosinophils (%) (Auto) 1 % (0-3) Basophils (%) (Auto) 1 % (0-3) Neutrophils # (Auto) 7.4 x10^3/uL (1.8-7.7) Lymphocytes # (Auto) 2.9 x10^3/uL (1.0-4.8) Monocytes # (Auto) 0.5 x10^3/uL (0.0-1.1) Eosinophils # (Auto) 0.1 x10^3/uL (0.0-0.7) Basophils # (Auto) 0.1 x10^3/uL (0.0-0.2) Prothrombin Time 12.4 SEC (11.7-14.0) Prothromb Time International Ratio 1.0 (0.8-1.1) Activated Partial Thromboplast Time 31 SEC (24-38) Sodium Level 134 mmol/L (136-145) Potassium Level 3.7 mmol/L (3.5-5.1) Chloride Level 97 mmol/L (98-107) Carbon Dioxide Level 24 mmol/L (21-32) Anion Gap 13 (6-14) Blood Urea Nitrogen 7 mg/dL (7-20) Creatinine 0.9 mg/dL (0.6-1.0) Estimated GFR (Cockcroft-Gault) 66.8 BUN/Creatinine Ratio 8 (6-20) Glucose Level 82 mg/dL (70-99) Lactic Acid Level 1.9 mmol/L (0.4-2.0) Calcium Level 9.0 mg/dL (8.5-10.1) Magnesium Level 1.7 mg/dL (1.8-2.4) Total Bilirubin 0.8 mg/dL (0.2-1.0) Aspartate Amino Transf (AST/SGOT) 201 U/L (15-37) Alanine Aminotransferase (ALT/SGPT) 135 U/L (14-59) Alkaline Phosphatase 179 U/L (46-116) Total Protein 7.4 g/dL (6.4-8.2) Albumin 4.1 g/dL (3.4-5.0) Albumin/Globulin Ratio 1.2 (1.0-1.7) Lipase 91 U/L (73-393) Urine Collection Type Unknown Urine Color Yellow Urine Clarity Clear Urine pH 6.5 (<5.0-8.0) Urine Specific [place] 1.020 (1.000-1.030) Urine Protein Negative mg/dL (NEG-TRACE) Urine Glucose (UA) Negative mg/dL (NEG) Urine Ketones (Stick) Trace mg/dL (NEG) Urine Blood Negative (NEG) Urine Nitrite Negative (NEG) Urine Bilirubin Negative (NEG) Urine Urobilinogen Dipstick 1.0 mg/dL (0.2 mg/dL) Urine Leukocyte Esterase Small (NEG) Urine RBC 0 /HPF (0-2) Urine WBC 1-4 /HPF (0-4) Urine Squamous Epithelial Cells Few /LPF Urine Bacteria 0 /HPF (0-FEW) Urine Mucus Mod /LPF SARS-CoV-2 Antigen (Rapid) Negative (NEGATIVE) Assessment/Plan Assessment/Plan Acute appendicitis plan laparoscopic appendectomy GIOVANNY KIM MD Oct 14, 2019 08:14
--- NOTE | 2019-10-14 09:39 | PDOC ---
PROGRESS NOTES Date of Service: DATE: 10/14/19 TIME: 09:38 Chief Complaint Chief Complaint Images: Images CT abdomen pelvis Impression: 1. There is evidence of acute appendicitis, no abscess or free air. 2. There is diffuse prominent hepatic steatosis. 3. There are bilateral renal cysts, some other smaller hypodense foci of the kidneys bilaterally too small to further accurately characterize. 4. There is a small left lower lobe noncalcified pulmonary nodule. If increased risk factors for neoplasm, optional 12 month follow-up could be performed as per revised Fleischner guidelines, no additional follow up needed if low risk factors. impression Assessment/Plan Acute abdominal pain due to acute appendicitis Admit to medicine Pending surgical evaluation Likely OR in the morning tomorrow Continue IV morphine PRN Continue IV fluids Continue IV Zosyn Serial abdominal exams Follow-up blood cultures Lovenox for DVT prophylaxis ADA diet Full code Discussed with RN and SW Disposition [facility] Surrogate decision maker is self Assessment/Plan Assessment/Plan Acute abdominal pain due to acute appendicitis Admit to medicine Pending surgical evaluation Likely OR in the morning tomorrow Continue IV morphine PRN Continue IV fluids Continue IV Zosyn Serial abdominal exams Follow-up blood cultures Lovenox for DVT prophylaxis ADA diet Full code Discussed with RN and SW Disposition [facility] Surrogate decision maker is self Justifications for Admission Justifications for Admission Other Justification History of Present Illness History of Present Illness History of Present Illness: HPI: Patient is a 49-year-old female with past medical history of hypothyroidism, pituitary mass status post resection, hype osteoporosis who presents with abdominal pain that started approximately 9:00 10/12. Patient is referred from a local urgent care and concern for possible appendicitis. Patient's pain is described as sharp and in the right lower quadrant. Pain is 10 out of 10. There is associated nausea vomiting. Patient has not eating anything since 10:00 last night. Denies shortness of breath, dysuria, bloody stools. 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 History of pituitary surgery for pituitary mass C-sections Allergies: Allergies: Coded Allergies: No Known Drug Allergies (Unverified , 10/18/15) Vitals Vitals Vital Signs Date Time Temp Pulse Resp B/P (MAP) Pulse Ox O2 Delivery O2 Flow Rate FiO2 10/14/19 07:15 20 Room Air 10/14/19 07:00 98.4 86 160/54 (89) 91 2.0 98.4 Physical Exam General: Alert, Oriented X3, Cooperative, No acute distress Heart: Regular rate, Normal S1, No murmurs Abdomen: Normal bowel sounds, Soft, Other (Tender right lower quadrant) Extremities: No cyanosis, No edema Labs LABS Laboratory Tests Test 10/13/19 17:20 10/13/19 17:25 10/13/19 20:44 White Blood Count 10.9 x10^3/uL (4.0-11.0) Red Blood Count 4.25 x10^6/uL (3.50-5.40) Hemoglobin 14.5 g/dL (12.0-15.5) Hematocrit 41.1 % (36.0-47.0) Mean Corpuscular Volume 97 fL (79-100) Mean Corpuscular Hemoglobin 34 pg (25-35) Mean Corpuscular Hemoglobin Concent 35 g/dL (31-37) Red Cell Distribution Width 12.4 % (11.5-14.5) Platelet Count 214 x10^3/uL (140-400) Neutrophils (%) (Auto) 67 % (31-73) Lymphocytes (%) (Auto) 26 % (24-48) Monocytes (%) (Auto) 5 % (0-9) Eosinophils (%) (Auto) 1 % (0-3) Basophils (%) (Auto) 1 % (0-3) Neutrophils # (Auto) 7.4 x10^3/uL (1.8-7.7) Lymphocytes # (Auto) 2.9 x10^3/uL (1.0-4.8) Monocytes # (Auto) 0.5 x10^3/uL (0.0-1.1) Eosinophils # (Auto) 0.1 x10^3/uL (0.0-0.7) Basophils # (Auto) 0.1 x10^3/uL (0.0-0.2) Prothrombin Time 12.4 SEC (11.7-14.0) Prothromb Time International Ratio 1.0 (0.8-1.1) Activated Partial Thromboplast Time 31 SEC (24-38) Sodium Level 134 mmol/L (136-145) Potassium Level 3.7 mmol/L (3.5-5.1) Chloride Level 97 mmol/L (98-107) Carbon Dioxide Level 24 mmol/L (21-32) Anion Gap 13 (6-14) Blood Urea Nitrogen 7 mg/dL (7-20) Creatinine 0.9 mg/dL (0.6-1.0) Estimated GFR (Cockcroft-Gault) 66.8 BUN/Creatinine Ratio 8 (6-20) Glucose Level 82 mg/dL (70-99) Lactic Acid Level 1.9 mmol/L (0.4-2.0) Calcium Level 9.0 mg/dL (8.5-10.1) Magnesium Level 1.7 mg/dL (1.8-2.4) Total Bilirubin 0.8 mg/dL (0.2-1.0) Aspartate Amino Transf (AST/SGOT) 201 U/L (15-37) Alanine Aminotransferase (ALT/SGPT) 135 U/L (14-59) Alkaline Phosphatase 179 U/L (46-116) Total Protein 7.4 g/dL (6.4-8.2) Albumin 4.1 g/dL (3.4-5.0) Albumin/Globulin Ratio 1.2 (1.0-1.7) Lipase 91 U/L (73-393) Urine Collection Type Unknown Urine Color Yellow Urine Clarity Clear Urine pH 6.5 (<5.0-8.0) Urine Specific Whiting 1.020 (1.000-1.030) Urine Protein Negative mg/dL (NEG-TRACE) Urine Glucose (UA) Negative mg/dL (NEG) Urine Ketones (Stick) Trace mg/dL (NEG) Urine Blood Negative (NEG) Urine Nitrite Negative (NEG) Urine Bilirubin Negative (NEG) Urine Urobilinogen Dipstick 1.0 mg/dL (0.2 mg/dL) Urine Leukocyte Esterase Small (NEG) Urine RBC 0 /HPF (0-2) Urine WBC 1-4 /HPF (0-4) Urine Squamous Epithelial Cells Few /LPF Urine Bacteria 0 /HPF (0-FEW) Urine Mucus Mod /LPF SARS-CoV-2 Antigen (Rapid) Negative (NEGATIVE) Assessment and Plan Assessmemt and Plan Problems Medical Problems: (1) Abdominal pain Status: Acute (2) Acute appendicitis Status: Acute (3) Elevated LFTs Status: Acute (4) Hypomagnesemia Status: Acute Comment Review of Relevant I have reviewed the following items trinh (where applicable) has been applied. Labs Laboratory Tests Test 10/13/19 17:20 10/13/19 17:25 10/13/19 20:44 White Blood Count 10.9 x10^3/uL (4.0-11.0) Red Blood Count 4.25 x10^6/uL (3.50-5.40) Hemoglobin 14.5 g/dL (12.0-15.5) Hematocrit 41.1 % (36.0-47.0) Mean Corpuscular Volume 97 fL (79-100) Mean Corpuscular Hemoglobin 34 pg (25-35) Mean Corpuscular Hemoglobin Concent 35 g/dL (31-37) Red Cell Distribution Width 12.4 % (11.5-14.5) Platelet Count 214 x10^3/uL (140-400) Neutrophils (%) (Auto) 67 % (31-73) Lymphocytes (%) (Auto) 26 % (24-48) Monocytes (%) (Auto) 5 % (0-9) Eosinophils (%) (Auto) 1 % (0-3) Basophils (%) (Auto) 1 % (0-3) Neutrophils # (Auto) 7.4 x10^3/uL (1.8-7.7) Lymphocytes # (Auto) 2.9 x10^3/uL (1.0-4.8) Monocytes # (Auto) 0.5 x10^3/uL (0.0-1.1) Eosinophils # (Auto) 0.1 x10^3/uL (0.0-0.7) Basophils # (Auto) 0.1 x10^3/uL (0.0-0.2) Prothrombin Time 12.4 SEC (11.7-14.0) Prothromb Time International Ratio 1.0 (0.8-1.1) Activated Partial Thromboplast Time 31 SEC (24-38) Sodium Level 134 mmol/L (136-145) Potassium Level 3.7 mmol/L (3.5-5.1) Chloride Level 97 mmol/L (98-107) Carbon Dioxide Level 24 mmol/L (21-32) Anion Gap 13 (6-14) Blood Urea Nitrogen 7 mg/dL (7-20) Creatinine 0.9 mg/dL (0.6-1.0) Estimated GFR (Cockcroft-Gault) 66.8 BUN/Creatinine Ratio 8 (6-20) Glucose Level 82 mg/dL (70-99) Lactic Acid Level 1.9 mmol/L (0.4-2.0) Calcium Level 9.0 mg/dL (8.5-10.1) Magnesium Level 1.7 mg/dL (1.8-2.4) Total Bilirubin 0.8 mg/dL (0.2-1.0) Aspartate Amino Transf (AST/SGOT) 201 U/L (15-37) Alanine Aminotransferase (ALT/SGPT) 135 U/L (14-59) Alkaline Phosphatase 179 U/L (46-116) Total Protein 7.4 g/dL (6.4-8.2) Albumin 4.1 g/dL (3.4-5.0) Albumin/Globulin Ratio 1.2 (1.0-1.7) Lipase 91 U/L (73-393) Urine Collection Type Unknown Urine Color Yellow Urine Clarity Clear Urine pH 6.5 (<5.0-8.0) Urine Specific Whiting 1.020 (1.000-1.030) Urine Protein Negative mg/dL (NEG-TRACE) Urine Glucose (UA) Negative mg/dL (NEG) Urine Ketones (Stick) Trace mg/dL (NEG) Urine Blood Negative (NEG) Urine Nitrite Negative (NEG) Urine Bilirubin Negative (NEG) Urine Urobilinogen Dipstick 1.0 mg/dL (0.2 mg/dL) Urine Leukocyte Esterase Small (NEG) Urine RBC 0 /HPF (0-2) Urine WBC 1-4 /HPF (0-4) Urine Squamous Epithelial Cells Few /LPF Urine Bacteria 0 /HPF (0-FEW) Urine Mucus Mod /LPF SARS-CoV-2 Antigen (Rapid) Negative (NEGATIVE) Laboratory Tests Test 10/13/19 17:20 10/13/19 17:25 10/13/19 20:44 White Blood Count 10.9 x10^3/uL (4.0-11.0) Red Blood Count 4.25 x10^6/uL (3.50-5.40) Hemoglobin 14.5 g/dL (12.0-15.5) Hematocrit 41.1 % (36.0-47.0) Mean Corpuscular Volume 97 fL (79-100) Mean Corpuscular Hemoglobin 34 pg (25-35) Mean Corpuscular Hemoglobin Concent 35 g/dL (31-37) Red Cell Distribution Width 12.4 % (11.5-14.5) Platelet Count 214 x10^3/uL (140-400) Neutrophils (%) (Auto) 67 % (31-73) Lymphocytes (%) (Auto) 26 % (24-48) Monocytes (%) (Auto) 5 % (0-9) Eosinophils (%) (Auto) 1 % (0-3) Basophils (%) (Auto) 1 % (0-3) Neutrophils # (Auto) 7.4 x10^3/uL (1.8-7.7) Lymphocytes # (Auto) 2.9 x10^3/uL (1.0-4.8) Monocytes # (Auto) 0.5 x10^3/uL (0.0-1.1) Eosinophils # (Auto) 0.1 x10^3/uL (0.0-0.7) Basophils # (Auto) 0.1 x10^3/uL (0.0-0.2) Prothrombin Time 12.4 SEC (11.7-14.0) Prothromb Time International Ratio 1.0 (0.8-1.1) Activated Partial Thromboplast Time 31 SEC (24-38) Sodium Level 134 mmol/L (136-145) Potassium Level 3.7 mmol/L (3.5-5.1) Chloride Level 97 mmol/L (98-107) Carbon Dioxide Level 24 mmol/L (21-32) Anion Gap 13 (6-14) Blood Urea Nitrogen 7 mg/dL (7-20) Creatinine 0.9 mg/dL (0.6-1.0) Estimated GFR (Cockcroft-Gault) 66.8 BUN/Creatinine Ratio 8 (6-20) Glucose Level 82 mg/dL (70-99) Lactic Acid Level 1.9 mmol/L (0.4-2.0) Calcium Level 9.0 mg/dL (8.5-10.1) Magnesium Level 1.7 mg/dL (1.8-2.4) Total Bilirubin 0.8 mg/dL (0.2-1.0) Aspartate Amino Transf (AST/SGOT) 201 U/L (15-37) Alanine Aminotransferase (ALT/SGPT) 135 U/L (14-59) Alkaline Phosphatase 179 U/L (46-116) Total Protein 7.4 g/dL (6.4-8.2) Albumin 4.1 g/dL (3.4-5.0) Albumin/Globulin Ratio 1.2 (1.0-1.7) Lipase 91 U/L (73-393) Urine Collection Type Unknown Urine Color Yellow Urine Clarity Clear Urine pH 6.5 (<5.0-8.0) Urine Specific Whiting 1.020 (1.000-1.030) Urine Protein Negative mg/dL (NEG-TRACE) Urine Glucose (UA) Negative mg/dL (NEG) Urine Ketones (Stick) Trace mg/dL (NEG) Urine Blood Negative (NEG) Urine Nitrite Negative (NEG) Urine Bilirubin Negative (NEG) Urine Urobilinogen Dipstick 1.0 mg/dL (0.2 mg/dL) Urine Leukocyte Esterase Small (NEG) Urine RBC 0 /HPF (0-2) Urine WBC 1-4 /HPF (0-4) Urine Squamous Epithelial Cells Few /LPF Urine Bacteria 0 /HPF (0-FEW) Urine Mucus Mod /LPF SARS-CoV-2 Antigen (Rapid) Negative (NEGATIVE) Medications Current Medications Fentanyl Citrate (Fentanyl 2ml Vial) 50 mcg 1X ONCE IVP Last administered on 10/13/19at 17:40; Start 10/13/19 at 17:15; Stop 10/13/19 at 17:18; Status DC Ondansetron HCl (Zofran) 4 mg 1X ONCE IVP Last administered on 10/13/19at 17:40; Start 10/13/19 at 17:15; Stop 10/13/19 at 17:18; Status DC Famotidine (Pepcid Vial) 20 mg 1X ONCE IVP Last administered on 10/13/19at 17:40; Start 10/13/19 at 17:15; Stop 10/13/19 at 17:18; Status DC Sodium Chloride 1,000 ml @ 1,000 mls/hr 1X ONCE IV Last administered on 10/13/19at 17:38; Start 10/13/19 at 17:30; Stop 10/13/19 at 18:29; Status DC Iohexol (Omnipaque 240 Mg/ml) 30 ml 1X ONCE PO Last administered on 10/13/19at 18:15; Start 10/13/19 at 18:15; Stop 10/13/19 at 18:18; Status DC Iohexol (Omnipaque 300 Mg/ml) 75 ml 1X ONCE IV Last administered on 10/13/19at 18:15; Start 10/13/19 at 18:15; Stop 10/13/19 at 18:18; Status DC Fentanyl Citrate (Fentanyl 2ml Vial) 50 mcg 1X ONCE IV Last administered on 10/13/19at 18:34; Start 10/13/19 at 18:45; Stop 10/13/19 at 18:46; Status DC Info (CONTRAST GIVEN -- Rx MONITORING) 1 each PRN DAILY PRN MC SEE COMMENTS; Start 10/13/19 at 18:30; Stop 10/15/19 at 18:29 Magnesium Sulfate 50 ml @ 25 mls/hr 1X ONCE IV Last administered on 10/13/19at 20:03; Start 10/13/19 at 19:30; Stop 10/13/19 at 21:29; Status DC Piperacillin Sod/ Tazobactam Sod 3.375 gm/Sodium Chloride 50 ml @ 100 mls/hr 1X ONCE IV ; Start 10/13/19 at 20:00; Stop 10/13/19 at 20:29; Status Cancel Morphine Sulfate (Morphine Sulfate) 4 mg 1X ONCE IV Last administered on 10/13/19at 19:37; Start 10/13/19 at 19:45; Stop 10/13/19 at 19:46; Status DC Ondansetron HCl (Zofran) 4 mg PRN Q8HRS PRN IV NAUSEA/VOMITING Last administered on 10/14/19at 01:40; Start 10/13/19 at 20:00; Stop 10/14/19 at 19:59 Morphine Sulfate (Morphine Sulfate) 4 mg PRN Q2HR PRN IV PAIN Last administered on 10/14/19at 06:45; Start 10/13/19 at 20:00; Stop 10/14/19 at 19:59 Sodium Chloride 1,000 ml @ 125 mls/hr Q8H IV Last administered on 10/14/19at 03:10; Start 10/13/19 at 19:53; Stop 10/14/19 at 19:52 Piperacillin Sod/ Tazobactam Sod 3.375 gm/Sodium Chloride 50 ml @ 100 mls/hr 1X IV ; Start 10/13/19 at 20:00 Enoxaparin Sodium (Lovenox 40mg Syringe) 40 mg Q24H SQ ; Start 10/13/19 at 22:00 Piperacillin Sod/ Tazobactam Sod 3.375 gm/Sodium Chloride 50 ml @ 100 mls/hr Q6HRS IV ; Start 10/14/19 at 10:00 Active Scripts Active Cyclobenzaprine Hcl 10 Mg Tablet 10 Mg PO TID PRN 7 Days Naprosyn (Naproxen) 500 Mg Tablet 500 Mg PO BID Ocuflox (Ofloxacin) 5 Ml Drops 1 Drop OS QID Use during the day and while outside the home. Erythromycin (Erythromycin Base) 3.5 Gm Oint...g. 1 Rochelle OS BID Use at home and at night. Vitals/I & O Vital Sign - Last 24 Hours 10/13/19 10/13/19 10/13/19 10/13/19 17:12 18:17 19:20 20:20 Temp 97.9 97.9 Pulse 85 82 84 88 Resp 20 18 B/P (MAP) 130/67 (88) 123/75 (91) 112/69 (83) 108/61 (77) Pulse Ox 97 97 96 O2 Delivery Room Air Room Air Room Air Room Air 10/13/19 10/13/19 10/13/19 10/13/19 21:20 22:00 22:28 22:30 Temp 97.9 97.9 Pulse 80 77 Resp 18 20 B/P (MAP) 101/65 (77) 108/75 (86) Pulse Ox 93 94 O2 Delivery Room Air Room Air Room Air Room Air 10/13/19 10/14/19 10/14/19 10/14/19 22:58 01:12 01:42 03:00 Temp 98.8 98.8 Pulse 18 Resp 20 20 20 16 B/P (MAP) 111/74 (86) Pulse Ox 92 O2 Delivery Room Air Room Air Room Air Nasal Cannula O2 Flow Rate 2.0 10/14/19 10/14/19 10/14/19 06:45 07:00 07:15 Temp 98.4 98.4 Pulse 86 Resp 20 18 20 B/P (MAP) 160/54 (89) Pulse Ox 91 O2 Delivery Room Air Nasal Cannula Room Air O2 Flow Rate 2.0 Intake and Output 10/13/19 10/13/19 10/14/19 15:00 23:00 07:00 Intake Total 1000 ml 625 ml Output Total 1030 ml Balance 1000 ml -405 ml Justicifation of Admission Dx: Justifications for Admission: Justification of Admission Dx: Yes GIOVANNY JOSEPH MD Oct 14, 2019 09:39
--- NOTE | 2019-10-14 09:50 | NUR ---
SW following. Discussed with RN, pt from home with , room air, NPO, COVID-19 negative. Pt having surgery today. RN advised no SW needs. SW will continue to follow.
[2019-10-14] MEDS ORDERED: BUPIVACAINE-EPI 0.5%-1:200000 MPF 30 ML VIAL. ONE (10:32)
[2019-10-14] MEDS: PIPERACILLIN/TAZOBACTAM 3.375 GM in IV NORMAL SALINE 50ML 50 ML IV SCH ×2 (11:09→19:18)
[2019-10-14] MEDS ORDERED: PROPOFOL 10 MG/ML (20ML) VIAL. IV ONE (12:12)
[2019-10-14] MEDS ORDERED: LIDOCAINE 2% PF 5 ML VIAL. ONE (12:12)
[2019-10-14] MEDS ORDERED: DEXAMETHASONE SOD PHOS 4 MG/ML VIAL ONE (12:12)
[2019-10-14] MEDS ORDERED: SUCCINYLCHOLINE 200 MG/10 ML VIAL. ONE (12:12)
[2019-10-14] MEDS ORDERED: ROCURONIUM 50 MG/5 ML VIAL. ONE (12:12)
[2019-10-14] MEDS ORDERED: ONDANSETRON PF 4 MG/2 ML VIAL. ONE (12:12)
[2019-10-14] MEDS ORDERED: MIDAZOLAM HCL/PF 2 MG/2 ML VIAL. ONE (12:13)
[2019-10-14] MEDS ORDERED: fentaNYL PF VIAL 100 MCG/2 ML VIAL ONE (12:13)
[2019-10-14] MEDS ORDERED: IV RINGERS,LACTATED 1000ML 1,000 ML IV SCH (12:40)
[2019-10-14] MEDS ORDERED: PROCHLORPERAZINE 10 MG/2 ML VIAL. IV PRN (12:45)
[2019-10-14] MEDS ORDERED: LIDOCAINE 1% PF 2 ML VIAL. ID PRN (12:45)
[2019-10-14] MEDS ORDERED: ONDANSETRON PF 4 MG/2 ML VIAL. IV PRN (12:45)
[2019-10-14] MEDS ORDERED: MORPHINE SULFATE 2 MG/ML VIAL. IV PRN (12:45)
[2019-10-14] MEDS ORDERED: HYDROmorphone 2 MG/ML VIAL IV PRN (12:45)
[2019-10-14] MEDS ORDERED: fentaNYL PF VIAL 100 MCG/2 ML VIAL IV PRN ×2 (12:45)
[2019-10-14] MEDS ORDERED: SEVOFLURANE 61 TO 120 MINUTES. IH ONE (13:46)
[2019-10-14] MEDS ORDERED: GLYCOPYRROLATE 1 MG/5 ML VIAL. ONE (14:25)
[2019-10-14] MEDS ORDERED: NEOSTIGMINE METHYLSULFATE 5 MG/5 ML SYRINGE. ONE (14:26)
--- NOTE | 2019-10-14 14:35 | PDOC4 ---
Operative Note Operative Note Date: 2019 at 1431 Preoperative diagnosis: Acute appendicitis Postoperative diagnosis: Same Procedure: Laparoscopic appendectomy Specimen: Appendix Surgeon: Tato Dictation: Patient is a 49-year-old female was mated to the hospital with right lower quadrant abdominal pain and CT scan showing signs consistent with acute appendicitis. Procedure of laparoscopic appendectomy was explained to the patient detail risk-benefit were also discussed including bleeding infection injury to intra-abdominal contents possible necessitating further or open operations alternatives to this procedure also discussed with the patient who seemed to understand and gave both verbal and written consent to have the procedure performed. Patient was taken to the operating room placed in the supine position general anesthesia was initiated once patient was sleeping intubated her abdomen was prepped and draped usual sterile fashion using ChloraPrep. An area at the umbilicus was injected quarter percent Marcaine with epinephrine incision was made 11 blade scalpel a varies needle was placed within the abdomen creating pneumoperitoneum once this complete 12 mm port was placed and a 5 mm camera was placed within the abdomen abdomen was inspected was noted in the right lower quadrant quite a few adhesions to the anterior abdominal wall. A 5 mm port was placed in the right upper abdomen and using Endo Archana scissors some of these adhesions were taken down a second 5 mm port was then placed low in the midline of the abdomen under direct visualization once this was in place a grasper was then used to grab some of the adhesions to the anterior abdominal wall and again more were taken down with sharp dissection this exposed the cecum and terminal ileum was noted that the appendix was gangrenous quite friable. The appendix was grasped and tracked towards the anterior abdominal wall there was essentially no mesoappendix left and a Endo RISA was used to staple and transect the base of the appendix. Appendix was then placed in Endo Catch bag removed from the umbilicus right lower quadrant was irrigated and suctioned dry as well as the pelvis due to the contaminated nature of the abdomen a 7 Sinhala flat PEDRO drain was placed through the lower 5 mm port this was placed along the right gutter and brought out sewn into place with a 3- 0 nylon suture. And hooked to suction. The pneumoperitoneum was reduced all ports were removed the fascial defect at the umbilicus closed with [id number] Vicryl suture and skin was reapproximated all port sites for subcuticular Monocryl Mastisol Steri-Strips and island dressings were applied. Patient was awakened and extubated in the operating room taken to recovery in stable condition all sponge instrument needle counts listed as correct estimated blood loss 30 mL GIOVANNY KIM MD Oct 14, 2019 14:35
[2019-10-14] MEDS ORDERED: MAGNESIUM SULFATE 2GM 50 ML IV ONE (15:00)
--- NOTE | 2019-10-14 16:00 | NUR ---
Pt returning from surgery. A&O X4 drowsy, denies pain, lap sites X2 CDI, PEDRO with sanguineous drainage. SCDS on. IVF infusing. Meal tray ordered. Frequent VS started. at bedside. Call light within reach. Will return to monitor.
[2019-10-14] MEDS: ENOXAPARIN 40 MG/0.4 ML SYRINGE. SQ SCH (21:57)
[2019-10-15] MEDS: PIPERACILLIN/TAZOBACTAM 3.375 GM in IV NORMAL SALINE 50ML 50 ML IV SCH ×4 (00:14→18:19)
[2019-10-15 03:00] VITALS: BP 99/65
[2019-10-15 07:00] VITALS: BP 100/69
[2019-10-15 08:14] LABS: BASO % 0 % (0-3); EOS % 0 % (0-3); HEMATOCRIT 38.1 % (36.0-47.0); HEMOGLOBIN 13.4 g/dL (12.0-15.5); LYMPH # 0.7 x10^3/uL (1.0-4.8); LYMPH % 5 % (24-48); MEAN CORPUSCULAR HEMOGLOBIN 35 pg (25-35); MEAN CORPUSCULAR HGB CONC 35 g/dL (31-37); MEAN CORPUSCULAR VOLUME 99 fL (79-100); MONO # 0.5 x10^3/uL (0.0-1.1); MONO % 4 % (0-9); NEUT # 12.7 x10^3/uL (1.8-7.7); NEUT % 91 % (31-73); PLATELET COUNT 176 x10^3/uL (140-400); RED BLOOD COUNT 3.84 x10^6/uL (3.50-5.40); RED CELL DISTRIBUTION WIDTH 12.5 % (11.5-14.5); WHITE BLOOD COUNT 13.9 x10^3/uL (4.0-11.0)
[2019-10-15 08:39] LABS: ALBUMIN 2.7 g/dL (3.4-5.0); ALBUMIN/GLOBULIN RATIO 0.7 (1.0-1.7); CALCIUM 8.1 mg/dL (8.5-10.1); GFR 59.2; POTASSIUM 3.8 mmol/L (3.5-5.1); TOTAL BILIRUBIN 1.2 mg/dL (0.2-1.0); TOTAL PROTEIN 6.5 g/dL (6.4-8.2)
[2019-10-15 11:00] VITALS: BP 103/70
[2019-10-15 11:16] LABS: % BANDS 8 % (0-9); % LYMPHS 1 % (24-48); % MONOS 2 % (0-10); % SEGS 89 % (35-66); PLT ESTIMATE ADEQUATE (ADEQUATE)
[2019-10-15] MEDS ORDERED: ONDANSETRON PF 4 MG/2 ML VIAL. IVP ONE (14:00)
[2019-10-15 15:00] VITALS: BP 128/88
--- NOTE | 2019-10-15 16:28 | PDOC ---
[facility] PROGRESS NOTE Date of Service DOS: DATE: 10/15/19 TIME: 16:26 Chief Complaint Chief Complaint Images: Images CT abdomen pelvis Impression: 1. There is evidence of acute appendicitis, no abscess or free air. 2. There is diffuse prominent hepatic steatosis. 3. There are bilateral renal cysts, some other smaller hypodense foci of the kidneys bilaterally too small to further accurately characterize. 4. There is a small left lower lobe noncalcified pulmonary nodule. If increased risk factors for neoplasm, optional 12 month follow-up could be performed as per revised Fleischner guidelines, no additional follow up needed if low risk factors. impression Assessment/Plan Acute abdominal pain due to acute appendicitis status post laparoscopic appendectomy 10/14/2019 Admit to medicine Pending surgical evaluation Likely OR in the morning tomorrow Continue IV morphine PRN Continue IV fluids Continue IV Zosyn Serial abdominal exams Follow-up blood cultures Lovenox for DVT prophylaxis ADA diet Full code Discussed with RN and SW Disposition [facility] Surrogate decision maker is self Assessment/Plan Assessment/Plan Acute abdominal pain due to acute appendicitis Admit to medicine Pending surgical evaluation Likely OR in the morning tomorrow Continue IV morphine PRN Continue IV fluids Continue IV Zosyn Serial abdominal exams Follow-up blood cultures Lovenox for DVT prophylaxis ADA diet Full code Discussed with RN and SW Disposition [facility] Surrogate decision maker is self Justifications for Admission Justifications for Admission Other Justification History of Present Illness History of Present Illness Patient is a 49-year-old female with past medical history of hypothyroidism, pituitary mass status post resection, hype osteoporosis who presents with abdominal pain that started approximately 9:00 10/12. Patient is referred from a local urgent care and concern for possible appendicitis. Patient's pain is described as sharp and in the right lower quadrant. Pain is 10 out of 10. There is associated nausea vomiting. Patient has not eating anything since 10:00 last night. Denies shortness of breath, dysuria, bloody stools. There is no other exacerbating or alleviating factors 10/15/2019 No acute events overnight. Patient with some vomiting. IV Zofran PRN. Shruti ent's chart, labs, images were reviewed and discussed with RN Vitals/I&O Vitals/I&O: Vital Signs Date Time Temp Pulse Resp B/P (MAP) Pulse Ox O2 Delivery O2 Flow Rate FiO2 10/15/19 15:00 98.0 83 16 128/88 (101) 96 Room Air 98.0 10/14/19 19:50 2.0 I & O 10/14/19 10/14/19 10/15/19 15:00 23:00 07:00 Intake Total 850 ml 2230 ml 1600 ml Output Total 915 ml 300 ml Balance 850 ml 1315 ml 1300 ml Physical Exam Physical Exam: GEN: No apparent distress. Alert and oriented HEENT: Normal cephalic, atraumatic, external auditory canals are patent NECK: Supple, no JVD, no thyromegaly was noted LUNGS: Bilateral crackles HEART: RRR, S1, S2 present. Peripheral pulses intact, no obvious murmurs noted ABDOMEN: Soft, nontender. Positive bowel sounds, no organomegaly, normal bowel sounds. Laparoscopic incision sites are well healing. No bleeding EXTREMITIES: Without clubbing, cyanosis, or edema. Pedal pulses intact. Negative Homans sign General: Alert, Oriented X3, Cooperative, No acute distress Heart: Regular rate, Normal S1, No murmurs Abdomen: Normal bowel sounds, Soft, Other (Tender right lower quadrant) Extremities: No cyanosis, No edema Labs Labs: Laboratory Tests Test 10/15/19 07:40 White Blood Count 13.9 x10^3/uL (4.0-11.0) Red Blood Count 3.84 x10^6/uL (3.50-5.40) Hemoglobin 13.4 g/dL (12.0-15.5) Hematocrit 38.1 % (36.0-47.0) Mean Corpuscular Volume 99 fL (79-100) Mean Corpuscular Hemoglobin 35 pg (25-35) Mean Corpuscular Hemoglobin Concent 35 g/dL (31-37) Red Cell Distribution Width 12.5 % (11.5-14.5) Platelet Count 176 x10^3/uL (140-400) Neutrophils (%) (Auto) 91 % (31-73) Lymphocytes (%) (Auto) 5 % (24-48) Monocytes (%) (Auto) 4 % (0-9) Eosinophils (%) (Auto) 0 % (0-3) Basophils (%) (Auto) 0 % (0-3) Neutrophils # (Auto) 12.7 x10^3/uL (1.8-7.7) Lymphocytes # (Auto) 0.7 x10^3/uL (1.0-4.8) Monocytes # (Auto) 0.5 x10^3/uL (0.0-1.1) Eosinophils # (Auto) 0.0 x10^3/uL (0.0-0.7) Basophils # (Auto) 0.0 x10^3/uL (0.0-0.2) Segmented Neutrophils % 89 % (35-66) Band Neutrophils % 8 % (0-9) Lymphocytes % 1 % (24-48) Monocytes % 2 % (0-10) Platelet Estimate Adequate (ADEQUATE) Sodium Level 138 mmol/L (136-145) Potassium Level 3.8 mmol/L (3.5-5.1) Chloride Level 104 mmol/L (98-107) Carbon Dioxide Level 24 mmol/L (21-32) Anion Gap 10 (6-14) Blood Urea Nitrogen 7 mg/dL (7-20) Creatinine 1.0 mg/dL (0.6-1.0) Estimated GFR (Cockcroft-Gault) 59.2 BUN/Creatinine Ratio 7 (6-20) Glucose Level 138 mg/dL (70-99) Calcium Level 8.1 mg/dL (8.5-10.1) Total Bilirubin 1.2 mg/dL (0.2-1.0) Aspartate Amino Transf (AST/SGOT) 123 U/L (15-37) Alanine Aminotransferase (ALT/SGPT) 102 U/L (14-59) Alkaline Phosphatase 97 U/L (46-116) Total Protein 6.5 g/dL (6.4-8.2) Albumin 2.7 g/dL (3.4-5.0) Albumin/Globulin Ratio 0.7 (1.0-1.7) Assessment and Plan Assessmemt and Plan Problems Medical Problems: (1) Abdominal pain Status: Acute (2) Acute appendicitis Status: Acute (3) Elevated LFTs Status: Acute (4) Hypomagnesemia Status: Acute Comment Review of Relevant I have reviewed the following items trinh (where applicable) has been applied. Medications: Current Medications Medications (Trade) Dose Ordered Sig/Felix Route PRN Reason Start Time Stop Time Status Last Admin Dose Admin Ondansetron HCl (Zofran) 4 mg 1X ONCE IVP 10/15/19 14:00 10/15/19 14:01 DC 10/15/19 14:03 Justifications for Admission Other Justification RAFFI HARDING MD Oct 15, 2019 16:28
[2019-10-15] MEDS: HYDROmorphone 2 MG/ML VIAL IVP PRN ×2 (18:18→21:19)
[2019-10-15] MEDS: ONDANSETRON PF 4 MG/2 ML VIAL. IVP PRN (18:18)
--- NOTE | 2019-10-15 19:05 | NUR ---
Patient wanted to speak with before NG insertion. NG was inserted to left nare.
[2019-10-15 19:15] VITALS: BP 96/63
[2019-10-15] MEDS: LACTOBACILLUS RHAMNOSUS GG 1 CAPSULE. PO SCH (19:41)
[2019-10-15] MEDS: ENOXAPARIN 40 MG/0.4 ML SYRINGE. SQ SCH (21:19)
--- NOTE | 2019-10-15 21:44 | RAD ---
Exam: Abdomen one view INDICATION: Verification of NG placement TECHNIQUE: Supine view the abdomen Comparisons: CT 10/13/2019 FINDINGS: Enteric tube with tip in the midline lower chest. Numerous air-filled dilated loops of small bowel noted diffusely throughout the abdomen. There is a drain seen in the lower abdomen. IMPRESSION: 1. Enteric tube with tip likely in the distal esophagus. Recommend advancement. 2. Dilated loops of bowel likely related to small bowel obstruction versus ileus. Continued radiographic follow-up is recommended. Electronically signed by: Arvind Zhou MD (10/15/2019 9:42 PM) [id number]
[2019-10-15 23:00] VITALS: BP 96/63
[2019-10-16] MEDS: PIPERACILLIN/TAZOBACTAM 3.375 GM in IV NORMAL SALINE 50ML 50 ML IV SCH ×4 (01:18→18:17)
[2019-10-16 03:00] VITALS: BP 124/74
[2019-10-16 07:00] VITALS: BP 140/90
[2019-10-16] MEDS: LACTOBACILLUS RHAMNOSUS GG 1 CAPSULE. PO SCH (07:19)
[2019-10-16] MEDS: HYDROmorphone 2 MG/ML VIAL IVP PRN (08:36)
[2019-10-16] MEDS: ONDANSETRON PF 4 MG/2 ML VIAL. IVP PRN (08:36)
[2019-10-16] MEDS ORDERED: CONTRAST GIVEN. MC PRN (10:45)
[2019-10-16] MEDS ORDERED: IOHEXOL 300 MG/ML 100ML VIAL. IV ONE (10:45)
[2019-10-16 11:00] VITALS: BP 138/84
--- NOTE | 2019-10-16 11:31 | RAD ---
CT ABDOMEN W/CONTRAST History: nausea/vomitting post op-appendix Comparison: 10/13/2019 Technique: After administration of intravenous contrast, helical CT of the abdomen was performed from. Coronal and sagittal reconstructions were obtained. 60 mL of Omnipaque 300 were used. One or more of the following dose reduction techniques were utilized: Automated exposure control (AEC), Adjustment of mA and/or kV according to patient size, Use of iterative reconstruction technique such as ASiR, CT scan done according to ALARA and image gently/image wisely Abdomen Findings: Bibasilar dependent and subsegmental atelectasis Diffuse hepatic steatosis. Gall bladder, pancreas, spleen, and bilateral adrenal glands are normal. Symmetric renal enhancement. No opaque urinary calculi. There is no hydronephrosis. Numerous dilated loops of small bowel measuring up to 4.1 cm in diameter. Fluid and gas throughout the colon. Postsurgical changes of recent appendectomy. Right lower quadrant free fluid. Mild scattered pneumoperitoneum. There is no mesenteric or retroperitoneal adenopathy. The abdominal aorta is normal in caliber. Mild aortoiliac atherosclerotic disease. IMPRESSION: 1. Multiple dilated loops of small bowel with air-fluid levels. Gas and fluid also scattered throughout the colon. Findings probably represent adynamic ileus. 2. Post surgical changes of recent appendectomy with right lower quadrant free fluid and mild pneumoperitoneum. Electronically signed by: Yung Francis MD (10/16/2019 11:28 AM) [id number]
--- NOTE | 2019-10-16 11:44 | PDOC ---
PROGRESS NOTES Date of Service: DATE: 10/16/19 TIME: 11:44 Chief Complaint Chief Complaint Images: Images CT abdomen pelvis Impression: 1. There is evidence of acute appendicitis, no abscess or free air. 2. There is diffuse prominent hepatic steatosis. 3. There are bilateral renal cysts, some other smaller hypodense foci of the kidneys bilaterally too small to further accurately characterize. 4. There is a small left lower lobe noncalcified pulmonary nodule. If increased risk factors for neoplasm, optional 12 month follow-up could be performed as per revised Fleischner guidelines, no additional follow up needed if low risk factors. impression Assessment/Plan Acute abdominal pain due to acute appendicitis status post laparoscopic appendectomy 10/14/2019 Admit to medicine Pending surgical evaluation Likely OR in the morning tomorrow Continue IV morphine PRN Continue IV fluids Continue IV Zosyn Serial abdominal exams Follow-up blood cultures Lovenox for DVT prophylaxis ADA diet Full code Discussed with RN and SW Disposition [facility] Surrogate decision maker is self Assessment/Plan Assessment/Plan Acute abdominal pain due to acute appendicitis pod # 2 10/15 VOMITED X 3 TODAY Admit to medicine Pending surgical evaluation Continue IV morphine PRN Continue IV fluids Continue IV Zosyn Serial abdominal exams Follow-up blood cultures Lovenox for DVT prophylaxis ADA diet Full code Discussed with RN Surrogate decision maker is self Justifications for Admission Justifications for Admission Other Justification History of Present Illness History of Present Illness Patient is a 49-year-old female with past medical history of hypothyroidism, pituitary mass status post resection, hype osteoporosis who presents with abdominal pain that started approximately 9:00 10/12. Patient is referred from a local urgent care and concern for possible appendicitis. Patient's pain is described as sharp and in the right lower quadrant. Pain is 10 out of 10. There is associated nausea vomiting. Patient has not eating anything since 10:00 last night. Denies shortness of breath, dysuria, bloody stools. There is no other exacerbating or alleviating factors 10/15/2019 No acute events overnight. Patient with some vomiting. IV Zofran PRN. Patient's chart, labs, images were reviewed and discussed with RN Vitals Vitals Vital Signs Date Time Temp Pulse Resp B/P (MAP) Pulse Ox O2 Delivery O2 Flow Rate FiO2 10/16/19 07:00 97.7 77 17 140/90 (107) 92 Room Air 97.7 10/15/19 23:00 2.0 Physical Exam Physical Exam GEN: No apparent distress. Alert and oriented HEENT: Normal cephalic, atraumatic, external auditory canals are patent NECK: Supple, no JVD, no thyromegaly was noted LUNGS: Bilateral crackles HEART: RRR, S1, S2 present. Peripheral pulses intact, no obvious murmurs noted ABDOMEN: Soft, nontender. Positive bowel sounds, no organomegaly, normal bowel sounds. Laparoscopic incision sites are well healing. No bleeding EXTREMITIES: Without clubbing, cyanosis, or edema. Pedal pulses intact. Negative Homans sign General: Alert, Oriented X3, Cooperative, No acute distress Heart: Regular rate, Normal S1, No murmurs Abdomen: Normal bowel sounds, Soft, Other (Tender right lower quadrant) Extremities: No cyanosis, No edema Assessment and Plan Assessmemt and Plan Problems Medical Problems: (1) Abdominal pain Status: Acute (2) Acute appendicitis Status: Acute (3) Elevated LFTs Status: Acute (4) Hypomagnesemia Status: Acute Comment Review of Relevant I have reviewed the following items trinh (where applicable) has been applied. Labs Laboratory Tests Test 10/15/19 07:40 White Blood Count 13.9 x10^3/uL (4.0-11.0) Red Blood Count 3.84 x10^6/uL (3.50-5.40) Hemoglobin 13.4 g/dL (12.0-15.5) Hematocrit 38.1 % (36.0-47.0) Mean Corpuscular Volume 99 fL (79-100) Mean Corpuscular Hemoglobin 35 pg (25-35) Mean Corpuscular Hemoglobin Concent 35 g/dL (31-37) Red Cell Distribution Width 12.5 % (11.5-14.5) Platelet Count 176 x10^3/uL (140-400) Neutrophils (%) (Auto) 91 % (31-73) Lymphocytes (%) (Auto) 5 % (24-48) Monocytes (%) (Auto) 4 % (0-9) Eosinophils (%) (Auto) 0 % (0-3) Basophils (%) (Auto) 0 % (0-3) Neutrophils # (Auto) 12.7 x10^3/uL (1.8-7.7) Lymphocytes # (Auto) 0.7 x10^3/uL (1.0-4.8) Monocytes # (Auto) 0.5 x10^3/uL (0.0-1.1) Eosinophils # (Auto) 0.0 x10^3/uL (0.0-0.7) Basophils # (Auto) 0.0 x10^3/uL (0.0-0.2) Segmented Neutrophils % 89 % (35-66) Band Neutrophils % 8 % (0-9) Lymphocytes % 1 % (24-48) Monocytes % 2 % (0-10) Platelet Estimate Adequate (ADEQUATE) Sodium Level 138 mmol/L (136-145) Potassium Level 3.8 mmol/L (3.5-5.1) Chloride Level 104 mmol/L (98-107) Carbon Dioxide Level 24 mmol/L (21-32) Anion Gap 10 (6-14) Blood Urea Nitrogen 7 mg/dL (7-20) Creatinine 1.0 mg/dL (0.6-1.0) Estimated GFR (Cockcroft-Gault) 59.2 BUN/Creatinine Ratio 7 (6-20) Glucose Level 138 mg/dL (70-99) Calcium Level 8.1 mg/dL (8.5-10.1) Total Bilirubin 1.2 mg/dL (0.2-1.0) Aspartate Amino Transf (AST/SGOT) 123 U/L (15-37) Alanine Aminotransferase (ALT/SGPT) 102 U/L (14-59) Alkaline Phosphatase 97 U/L (46-116) Total Protein 6.5 g/dL (6.4-8.2) Albumin 2.7 g/dL (3.4-5.0) Albumin/Globulin Ratio 0.7 (1.0-1.7) Microbiology 10/13/19 Urine Culture - Final, Complete Medications Current Medications Fentanyl Citrate (Fentanyl 2ml Vial) 50 mcg 1X ONCE IVP Last administered on 10/13/19at 17:40; Start 10/13/19 at 17:15; Stop 10/13/19 at 17:18; Status DC Ondansetron HCl (Zofran) 4 mg 1X ONCE IVP Last administered on 10/13/19at 17:40; Start 10/13/19 at 17:15; Stop 10/13/19 at 17:18; Status DC Famotidine (Pepcid Vial) 20 mg 1X ONCE IVP Last administered on 10/13/19at 17:40; Start 10/13/19 at 17:15; Stop 10/13/19 at 17:18; Status DC Sodium Chloride 1,000 ml @ 1,000 mls/hr 1X ONCE IV Last administered on 10/13/19at 17:38; Start 10/13/19 at 17:30; Stop 10/13/19 at 18:29; Status DC Iohexol (Omnipaque 240 Mg/ml) 30 ml 1X ONCE PO Last administered on 10/13/19at 18:15; Start 10/13/19 at 18:15; Stop 10/13/19 at 18:18; Status DC Iohexol (Omnipaque 300 Mg/ml) 75 ml 1X ONCE IV Last administered on 10/13/19at 18:15; Start 10/13/19 at 18:15; Stop 10/13/19 at 18:18; Status DC Fentanyl Citrate (Fentanyl 2ml Vial) 50 mcg 1X ONCE IV Last administered on 10/13/19at 18:34; Start 10/13/19 at 18:45; Stop 10/13/19 at 18:46; Status DC Info (CONTRAST GIVEN -- Rx MONITORING) 1 each PRN DAILY PRN MC SEE COMMENTS; Start 10/13/19 at 18:30; Stop 10/15/19 at 18:29; Status DC Magnesium Sulfate 50 ml @ 25 mls/hr 1X ONCE IV Last administered on 10/13/19at 20:03; Start 10/13/19 at 19:30; Stop 10/13/19 at 21:29; Status DC Piperacillin Sod/ Tazobactam Sod 3.375 gm/Sodium Chloride 50 ml @ 100 mls/hr 1X ONCE IV ; Start 10/13/19 at 20:00; Stop 10/13/19 at 20:29; Status Cancel Morphine Sulfate (Morphine Sulfate) 4 mg 1X ONCE IV Last administered on 10/13/19at 19:37; Start 10/13/19 at 19:45; Stop 10/13/19 at 19:46; Status DC Ondansetron HCl (Zofran) 4 mg PRN Q8HRS PRN IV NAUSEA/VOMITING Last administered on 10/14/19at 11:16; Start 10/13/19 at 20:00; Stop 10/14/19 at 19:59; Status DC Morphine Sulfate (Morphine Sulfate) 4 mg PRN Q2HR PRN IV PAIN Last administered on 10/14/19at 11:17; Start 10/13/19 at 20:00; Stop 10/14/19 at 19:59; Status DC Sodium Chloride 1,000 ml @ 125 mls/hr Q8H IV Last administered on 10/14/19at 11:09; Start 10/13/19 at 19:53; Stop 10/14/19 at 19:52; Status DC Piperacillin Sod/ Tazobactam Sod 3.375 gm/Sodium Chloride 50 ml @ 100 mls/hr 1X IV ; Start 10/13/19 at 20:00; Stop 10/14/19 at 09:47; Status DC Enoxaparin Sodium (Lovenox 40mg Syringe) 40 mg Q24H SQ Last administered on 10/15/19at 21:19; Start 10/13/19 at 22:00 Piperacillin Sod/ Tazobactam Sod 3.375 gm/Sodium Chloride 50 ml @ 100 mls/hr Q6HRS IV Last administered on 10/16/19at 05:56; Start 10/14/19 at 10:00 Bupivacaine HCl/ Epinephrine Bitart (Sensorcain-Epi 0.5%-1:062258 Mpf) 30 ml STK-MED ONCE .ROUTE Last administered on 10/14/19at 13:46; Start 10/14/19 at 10:32; Stop 10/14/19 at 10:32; Status DC Propofol (Diprivan) 200 mg STK-MED ONCE IV ; Start 10/14/19 at 12:12; Stop 10/14/19 at 12:12; Status DC Lidocaine HCl (Lidocaine Pf 2% Vial) 5 ml STK-MED ONCE .ROUTE ; Start 10/14/19 at 12:12; Stop 10/14/19 at 12:12; Status DC Dexamethasone Sodium Phosphate (Decadron) 4 mg STK-MED ONCE .ROUTE ; Start 10/14/19 at 12:12; Stop 10/14/19 at 12:12; Status DC Ondansetron HCl (Zofran) 4 mg STK-MED ONCE .ROUTE ; Start 10/14/19 at 12:12; Stop 10/14/19 at 12:12; Status DC Rocuronium [place] (Zemuron) 50 mg STK-MED ONCE .ROUTE ; Start 10/14/19 at 12:12; Stop 10/14/19 at 12:13; Status DC Succinylcholine Chloride (Anectine) 200 mg STK-MED ONCE .ROUTE ; Start 10/14/19 at 12:12; Stop 10/14/19 at 12:13; Status DC Midazolam HCl (Versed) 2 mg STK-MED ONCE .ROUTE ; Start 10/14/19 at 12:13; Stop 10/14/19 at 12:13; Status DC Fentanyl Citrate (Fentanyl 2ml Vial) 100 mcg STK-MED ONCE .ROUTE ; Start 10/14/19 at 12:13; Stop 10/14/19 at 12:13; Status DC Ondansetron HCl (Zofran) 4 mg PRN Q6HRS PRN IV NAUSEA/VOMITING Last administered on 10/15/19at 12:08; Start 10/14/19 at 12:45; Stop 10/15/19 at 12:44; Status DC Fentanyl Citrate (Fentanyl 2ml Vial) 25 mcg PRN Q5MIN PRN IV MILD PAIN 1-3; Start 10/14/19 at 12:45; Stop 10/15/19 at 12:44; Status DC Fentanyl Citrate (Fentanyl 2ml Vial) 50 mcg PRN Q5MIN PRN IV MODERATE TO SEVERE PAIN Last administered on 10/15/19at 12:03; Start 10/14/19 at 12:45; Stop 10/15/19 at 12:44; Status DC Morphine Sulfate (Morphine Sulfate) 1 mg PRN Q10MIN PRN IV SEVERE PAIN 7-10; Start 10/14/19 at 12:45; Stop 10/15/19 at 12:44; Status DC Ringer's Solution 1,000 ml @ 30 mls/hr Q24H IV ; Start 10/14/19 at 12:40; Stop 10/15/19 at 00:39; Status DC Lidocaine HCl (Xylocaine-Mpf 1% 2ml Vial) 2 ml PRN 1X PRN ID PRIOR TO IV START; Start 10/14/19 at 12:45; Stop 10/15/19 at 12:44; Status DC Hydromorphone HCl (Dilaudid) 0.5 mg PRN Q10MIN PRN IV SEV PAIN, Second choice; Start 10/14/19 at 12:45; Stop 10/15/19 at 12:44; Status DC Prochlorperazine Edisylate (Compazine) 5 mg PACU PRN PRN IV NAUSEA, MRX1; Start 10/14/19 at 12:45; Stop 10/15/19 at 12:44; Status DC Sevoflurane (Ultane) 60 ml STK-MED ONCE IH ; Start 10/14/19 at 13:46; Stop 10/14/19 at 13:46; Status DC Magnesium Sulfate 50 ml @ 25 mls/hr 1X ONCE IV ; Start 10/14/19 at 15:00; Stop 10/14/19 at 16:59; Status DC Glycopyrrolate (Robinul) 1 mg STK-MED ONCE .ROUTE ; Start 10/14/19 at 14:25; Stop 10/14/19 at 14:26; Status DC Neostigmine [place] (Neostigmine Methylsulfate) 5 mg STK-MED ONCE .ROUTE ; Start 10/14/19 at 14:26; Stop 10/14/19 at 14:26; Status DC Lactobacillus Rhamnosus (Culturelle) 1 cap BID PO ; Start 10/15/19 at 21:00 Ondansetron HCl (Zofran) 4 mg PRN Q4HRS PRN IVP NAUSEA/VOMITING Last administered on 10/16/19at 08:36; Start 10/15/19 at 13:30 Ondansetron HCl (Zofran) 4 mg 1X ONCE IVP Last administered on 10/15/19at 14:03; Start 10/15/19 at 14:00; Stop 10/15/19 at 14:01; Status DC Hydromorphone HCl (Dilaudid) 0.4 mg PRN Q2HR PRN IVP PAIN Last administered on 10/15/19at 21:19; Start 10/15/19 at 16:45 Iohexol (Omnipaque 300 Mg/ml) 60 ml 1X ONCE IV Last administered on 10/16/19at 11:03; Start 10/16/19 at 10:45; Stop 8/30/20 at 10:46; Status DC Info (CONTRAST GIVEN -- Rx MONITORING) 1 each PRN DAILY PRN MC SEE COMMENTS; Start 10/16/19 at 10:45; Stop 10/18/19 at 10:44 Active Scripts Active Cyclobenzaprine Hcl 10 Mg Tablet 10 Mg PO TID PRN 7 Days Naprosyn (Naproxen) 500 Mg Tablet 500 Mg PO BID Ocuflox (Ofloxacin) 5 Ml Drops 1 Drop OS QID Use during the day and while outside the home. Erythromycin (Erythromycin Base) 3.5 Gm Oint...g. 1 [place] OS BID Use at home and at night. Vitals/I & O Vital Sign - Last 24 Hours 10/15/19 10/15/19 10/15/19 10/15/19 12:03 12:33 15:00 18:18 Temp 98.0 98.0 Pulse 83 Resp 16 B/P (MAP) 128/88 (101) Pulse Ox 96 O2 Delivery Room Air Room Air Room Air Room Air 10/15/19 10/15/19 10/15/19 10/15/19 18:48 19:15 21:19 21:49 Temp 98.2 98.2 Pulse 99 Resp 20 B/P (MAP) 96/63 (74) Pulse Ox 93 93 93 O2 Delivery Room Air Nasal Cannula Nasal Cannula Nasal Cannula O2 Flow Rate 2.0 10/15/19 10/16/19 10/16/19 23:00 03:00 07:00 Temp 97.3 98.1 97.7 97.3 98.1 97.7 Pulse 96 81 77 Resp 19 19 17 B/P (MAP) 96/63 (74) 124/74 (91) 140/90 (107) Pulse Ox 92 93 92 O2 Delivery Nasal Cannula Room Air Room Air O2 Flow Rate 2.0 Intake and Output 10/15/19 10/15/19 10/16/19 15:00 23:00 07:00 Intake Total 0 ml 0 ml Output Total 1150 ml Balance 0 ml -1150 ml Justicifation of Admission Dx: Justifications for Admission: Justification of Admission Dx: Yes GIOVANNY JOSEPH MD Oct 16, 2019 11:44
--- NOTE | 2019-10-16 13:31 | PDOC ---
PROGRESS NOTES Date of Service DATE: 10/16/19 TIME: 13:30 Subjective Subjective Multiple episodes of emesis; attempted NG tube but patient pulled out Objective Objective Vital Signs Date Time Temp Pulse Resp B/P (MAP) Pulse Ox O2 Delivery O2 Flow Rate FiO2 10/16/19 11:00 97.7 78 17 138/84 (102) 94 Room Air 97.7 10/15/19 23:00 2.0 Intake and Output 10/16/19 07:00 Intake Total 0 ml Output Total 1150 ml Balance -1150 ml Intake Oral 0 ml Output Urine Total 750 ml Emesis 300 ml Drainage Total 100 ml # Voids 4 Physical Exam Abdomen: Soft (some distension) Assessment Assessment Problems Medical Problems: (1) Abdominal pain Status: Acute (2) Acute appendicitis Status: Acute (3) Elevated LFTs Status: Acute (4) Hypomagnesemia Status: Acute Plan Plan of Care CT confirms ileus without defined abscess; keep NPO until bowel function improves Comment Review of Relevant I have reviewed the following items trinh (where applicable) has been applied. Labs Laboratory Tests Test 10/15/19 07:40 White Blood Count 13.9 x10^3/uL (4.0-11.0) Red Blood Count 3.84 x10^6/uL (3.50-5.40) Hemoglobin 13.4 g/dL (12.0-15.5) Hematocrit 38.1 % (36.0-47.0) Mean Corpuscular Volume 99 fL (79-100) Mean Corpuscular Hemoglobin 35 pg (25-35) Mean Corpuscular Hemoglobin Concent 35 g/dL (31-37) Red Cell Distribution Width 12.5 % (11.5-14.5) Platelet Count 176 x10^3/uL (140-400) Neutrophils (%) (Auto) 91 % (31-73) Lymphocytes (%) (Auto) 5 % (24-48) Monocytes (%) (Auto) 4 % (0-9) Eosinophils (%) (Auto) 0 % (0-3) Basophils (%) (Auto) 0 % (0-3) Neutrophils # (Auto) 12.7 x10^3/uL (1.8-7.7) Lymphocytes # (Auto) 0.7 x10^3/uL (1.0-4.8) Monocytes # (Auto) 0.5 x10^3/uL (0.0-1.1) Eosinophils # (Auto) 0.0 x10^3/uL (0.0-0.7) Basophils # (Auto) 0.0 x10^3/uL (0.0-0.2) Segmented Neutrophils % 89 % (35-66) Band Neutrophils % 8 % (0-9) Lymphocytes % 1 % (24-48) Monocytes % 2 % (0-10) Platelet Estimate Adequate (ADEQUATE) Sodium Level 138 mmol/L (136-145) Potassium Level 3.8 mmol/L (3.5-5.1) Chloride Level 104 mmol/L (98-107) Carbon Dioxide Level 24 mmol/L (21-32) Anion Gap 10 (6-14) Blood Urea Nitrogen 7 mg/dL (7-20) Creatinine 1.0 mg/dL (0.6-1.0) Estimated GFR (Cockcroft-Gault) 59.2 BUN/Creatinine Ratio 7 (6-20) Glucose Level 138 mg/dL (70-99) Calcium Level 8.1 mg/dL (8.5-10.1) Total Bilirubin 1.2 mg/dL (0.2-1.0) Aspartate Amino Transf (AST/SGOT) 123 U/L (15-37) Alanine Aminotransferase (ALT/SGPT) 102 U/L (14-59) Alkaline Phosphatase 97 U/L (46-116) Total Protein 6.5 g/dL (6.4-8.2) Albumin 2.7 g/dL (3.4-5.0) Albumin/Globulin Ratio 0.7 (1.0-1.7) Microbiology 10/13/19 Urine Culture - Final, Complete Medications Current Medications Fentanyl Citrate (Fentanyl 2ml Vial) 50 mcg 1X ONCE IVP Last administered on 10/13/19at 17:40; Start 10/13/19 at 17:15; Stop 10/13/19 at 17:18; Status DC Ondansetron HCl (Zofran) 4 mg 1X ONCE IVP Last administered on 10/13/19at 17:40; Start 10/13/19 at 17:15; Stop 10/13/19 at 17:18; Status DC Famotidine (Pepcid Vial) 20 mg 1X ONCE IVP Last administered on 10/13/19at 17:40; Start 10/13/19 at 17:15; Stop 10/13/19 at 17:18; Status DC Sodium Chloride 1,000 ml @ 1,000 mls/hr 1X ONCE IV Last administered on 10/13/19at 17:38; Start 10/13/19 at 17:30; Stop 10/13/19 at 18:29; Status DC Iohexol (Omnipaque 240 Mg/ml) 30 ml 1X ONCE PO Last administered on 10/13/19at 18:15; Start 10/13/19 at 18:15; Stop 10/13/19 at 18:18; Status DC Iohexol (Omnipaque 300 Mg/ml) 75 ml 1X ONCE IV Last administered on 10/13/19at 18:15; Start 10/13/19 at 18:15; Stop 10/13/19 at 18:18; Status DC Fentanyl Citrate (Fentanyl 2ml Vial) 50 mcg 1X ONCE IV Last administered on 10/13/19at 18:34; Start 10/13/19 at 18:45; Stop 10/13/19 at 18:46; Status DC Info (CONTRAST GIVEN -- Rx MONITORING) 1 each PRN DAILY PRN MC SEE COMMENTS; Start 10/13/19 at 18:30; Stop 10/15/19 at 18:29; Status DC Magnesium Sulfate 50 ml @ 25 mls/hr 1X ONCE IV Last administered on 10/13/19at 20:03; Start 10/13/19 at 19:30; Stop 10/13/19 at 21:29; Status DC Piperacillin Sod/ Tazobactam Sod 3.375 gm/Sodium Chloride 50 ml @ 100 mls/hr 1X ONCE IV ; Start 10/13/19 at 20:00; Stop 10/13/19 at 20:29; Status Cancel Morphine Sulfate (Morphine Sulfate) 4 mg 1X ONCE IV Last administered on 10/13/19at 19:37; Start 10/13/19 at 19:45; Stop 10/13/19 at 19:46; Status DC Ondansetron HCl (Zofran) 4 mg PRN Q8HRS PRN IV NAUSEA/VOMITING Last administered on 10/14/19at 11:16; Start 10/13/19 at 20:00; Stop 10/14/19 at 19:59; Status DC Morphine Sulfate (Morphine Sulfate) 4 mg PRN Q2HR PRN IV PAIN Last administered on 10/14/19at 11:17; Start 10/13/19 at 20:00; Stop 10/14/19 at 19:59; Status DC Sodium Chloride 1,000 ml @ 125 mls/hr Q8H IV Last administered on 10/14/19at 11:09; Start 10/13/19 at 19:53; Stop 10/14/19 at 19:52; Status DC Piperacillin Sod/ Tazobactam Sod 3.375 gm/Sodium Chloride 50 ml @ 100 mls/hr 1X IV ; Start 10/13/19 at 20:00; Stop 10/14/19 at 09:47; Status DC Enoxaparin Sodium (Lovenox 40mg Syringe) 40 mg Q24H SQ Last administered on 10/15/19at 21:19; Start 10/13/19 at 22:00 Piperacillin Sod/ Tazobactam Sod 3.375 gm/Sodium Chloride 50 ml @ 100 mls/hr Q6HRS IV Last administered on 10/16/19at 12:54; Start 10/14/19 at 10:00 Bupivacaine HCl/ Epinephrine Bitart (Sensorcain-Epi 0.5%-1:410240 Mpf) 30 ml STK-MED ONCE .ROUTE Last administered on 10/14/19at 13:46; Start 10/14/19 at 10:32; Stop 10/14/19 at 10:32; Status DC Propofol (Diprivan) 200 mg STK-MED ONCE IV ; Start 10/14/19 at 12:12; Stop 10/14/19 at 12:12; Status DC Lidocaine HCl (Lidocaine Pf 2% Vial) 5 ml STK-MED ONCE .ROUTE ; Start 10/14/19 at 12:12; Stop 10/14/19 at 12:12; Status DC Dexamethasone Sodium Phosphate (Decadron) 4 mg STK-MED ONCE .ROUTE ; Start 10/14/19 at 12:12; Stop 10/14/19 at 12:12; Status DC Ondansetron HCl (Zofran) 4 mg STK-MED ONCE .ROUTE ; Start 10/14/19 at 12:12; Stop 10/14/19 at 12:12; Status DC Rocuronium [place] (Zemuron) 50 mg STK-MED ONCE .ROUTE ; Start 10/14/19 at 12:12; Stop 10/14/19 at 12:13; Status DC Succinylcholine Chloride (Anectine) 200 mg STK-MED ONCE .ROUTE ; Start 10/14/19 at 12:12; Stop 10/14/19 at 12:13; Status DC Midazolam HCl (Versed) 2 mg STK-MED ONCE .ROUTE ; Start 10/14/19 at 12:13; Stop 10/14/19 at 12:13; Status DC Fentanyl Citrate (Fentanyl 2ml Vial) 100 mcg STK-MED ONCE .ROUTE ; Start 10/14/19 at 12:13; Stop 10/14/19 at 12:13; Status DC Ondansetron HCl (Zofran) 4 mg PRN Q6HRS PRN IV NAUSEA/VOMITING Last administered on 10/15/19at 12:08; Start 10/14/19 at 12:45; Stop 10/15/19 at 12:44; Status DC Fentanyl Citrate (Fentanyl 2ml Vial) 25 mcg PRN Q5MIN PRN IV MILD PAIN 1-3; Start 10/14/19 at 12:45; Stop 10/15/19 at 12:44; Status DC Fentanyl Citrate (Fentanyl 2ml Vial) 50 mcg PRN Q5MIN PRN IV MODERATE TO SEVERE PAIN Last administered on 10/15/19at 12:03; Start 10/14/19 at 12:45; Stop 10/15/19 at 12:44; Status DC Morphine Sulfate (Morphine Sulfate) 1 mg PRN Q10MIN PRN IV SEVERE PAIN 7-10; Start 10/14/19 at 12:45; Stop 10/15/19 at 12:44; Status DC Ringer's Solution 1,000 ml @ 30 mls/hr Q24H IV ; Start 10/14/19 at 12:40; Stop 10/15/19 at 00:39; Status DC Lidocaine HCl (Xylocaine-Mpf 1% 2ml Vial) 2 ml PRN 1X PRN ID PRIOR TO IV START; Start 10/14/19 at 12:45; Stop 10/15/19 at 12:44; Status DC Hydromorphone HCl (Dilaudid) 0.5 mg PRN Q10MIN PRN IV SEV PAIN, Second choice; Start 10/14/19 at 12:45; Stop 10/15/19 at 12:44; Status DC Prochlorperazine Edisylate (Compazine) 5 mg PACU PRN PRN IV NAUSEA, MRX1; Start 10/14/19 at 12:45; Stop 10/15/19 at 12:44; Status DC Sevoflurane (Ultane) 60 ml STK-MED ONCE IH ; Start 10/14/19 at 13:46; Stop 10/14/19 at 13:46; Status DC Magnesium Sulfate 50 ml @ 25 mls/hr 1X ONCE IV ; Start 10/14/19 at 15:00; Stop 10/14/19 at 16:59; Status DC Glycopyrrolate (Robinul) 1 mg STK-MED ONCE .ROUTE ; Start 10/14/19 at 14:25; Stop 10/14/19 at 14:26; Status DC Neostigmine [place] (Neostigmine Methylsulfate) 5 mg STK-MED ONCE .ROUTE ; Start 10/14/19 at 14:26; Stop 10/14/19 at 14:26; Status DC Lactobacillus Rhamnosus (Culturelle) 1 cap BID PO ; Start 10/15/19 at 21:00 Ondansetron HCl (Zofran) 4 mg PRN Q4HRS PRN IVP NAUSEA/VOMITING Last administered on 10/16/19at 08:36; Start 10/15/19 at 13:30 Ondansetron HCl (Zofran) 4 mg 1X ONCE IVP Last administered on 10/15/19at 14:03; Start 10/15/19 at 14:00; Stop 10/15/19 at 14:01; Status DC Hydromorphone HCl (Dilaudid) 0.4 mg PRN Q2HR PRN IVP PAIN Last administered on 10/15/19at 21:19; Start 10/15/19 at 16:45 Iohexol (Omnipaque 300 Mg/ml) 60 ml 1X ONCE IV Last administered on 10/16/19at 11:03; Start 10/16/19 at 10:45; Stop 10/16/19 at 10:46; Status DC Info (CONTRAST GIVEN -- Rx MONITORING) 1 each PRN DAILY PRN MC SEE COMMENTS; Start 10/16/19 at 10:45; Stop 10/18/19 at 10:44 Active Scripts Active Cyclobenzaprine Hcl 10 Mg Tablet 10 Mg PO TID PRN 7 Days Naprosyn (Naproxen) 500 Mg Tablet 500 Mg PO BID Ocuflox (Ofloxacin) 5 Ml Drops 1 Drop OS QID Use during the day and while outside the home. Erythromycin (Erythromycin Base) 3.5 Gm Oint...g. 1 Rochelle OS BID Use at home and at night. Vitals/I & O Vital Sign - Last 24 Hours 10/15/19 10/15/19 10/15/19 10/15/19 15:00 18:18 18:48 19:15 Temp 98.0 98.2 98.0 98.2 Pulse 83 99 Resp 16 20 B/P (MAP) 128/88 (101) 96/63 (74) Pulse Ox 96 93 O2 Delivery Room Air Room Air Room Air Nasal Cannula O2 Flow Rate 2.0 10/15/19 10/15/19 10/15/19 10/16/19 21:19 21:49 23:00 03:00 Temp 97.3 98.1 97.3 98.1 Pulse 96 81 Resp 19 19 B/P (MAP) 96/63 (74) 124/74 (91) Pulse Ox 93 93 92 93 O2 Delivery Nasal Cannula Nasal Cannula Nasal Cannula Room Air O2 Flow Rate 2.0 10/16/19 10/16/19 07:00 11:00 Temp 97.7 97.7 97.7 97.7 Pulse 77 78 Resp 17 17 B/P (MAP) 140/90 (107) 138/84 (102) Pulse Ox 92 94 O2 Delivery Room Air Room Air Intake and Output 10/15/19 10/15/19 10/16/19 15:00 23:00 07:00 Intake Total 0 ml 0 ml Output Total 1150 ml Balance 0 ml -1150 ml Justifications for Admission Other Justification KENNY HERNÁNDEZ MD Oct 16, 2019 13:31
[2019-10-16 15:00] VITALS: BP 132/82
[2019-10-16 19:00] VITALS: BP 132/93
[2019-10-16] MEDS: ENOXAPARIN 40 MG/0.4 ML SYRINGE. SQ SCH (21:19)
[2019-10-16 23:00] VITALS: BP 136/88
[2019-10-17] MEDS: PIPERACILLIN/TAZOBACTAM 3.375 GM in IV NORMAL SALINE 50ML 50 ML IV SCH ×4 (01:20→18:17)
[2019-10-17 03:00] VITALS: BP 138/94
[2019-10-17 07:00] VITALS: BP 128/87
--- NOTE | 2019-10-17 07:56 | PDOC ---
SURGICAL PROGRESS NOTE DATE: 10/17/19 TIME: 07:55 Subjective Patient states she is feeling better this morning been passing flatus no nausea or vomiting Vital Signs Vital Signs Date Time Temp Pulse Resp B/P (MAP) Pulse Ox O2 Delivery O2 Flow Rate FiO2 10/17/19 03:00 97.4 86 18 138/94 (109) 92 Room Air 97.4 10/16/19 23:00 2.0 I&O Intake and Output 10/17/19 07:00 Intake Total 0 ml Balance 0 ml Intake Oral 0 ml # Voids 3 # Bowel Movements 1 PATIENT HAS A ARAGON: No General: Alert, Oriented X3, Cooperative, mild distress Abdomen: Normal bowel sounds, Soft, Other (Mild incisional tenderness wounds clean dry and intact) Problem List Problems Medical Problems: (1) Abdominal pain Status: Acute (2) Acute appendicitis Status: Acute (3) Elevated LFTs Status: Acute (4) Hypomagnesemia Status: Acute Assessment/Plan Status post laparoscopic appendectomy for gangrenous gallbladder Improving bowel function start clear liquid diet Justicifation of Admission Dx: Justifications for Admission: Justification of Admission Dx: Yes GIOVANNY KIM MD Oct 17, 2019 07:56
[2019-10-17 08:09] LABS: BASO # 0.1 x10^3/uL (0.0-0.2); BASO % 1 % (0-3); EOS # 0.1 x10^3/uL (0.0-0.7); EOS % 0 % (0-3); HEMATOCRIT 46.1 % (36.0-47.0); LYMPH # 1.8 x10^3/uL (1.0-4.8); LYMPH % 11 % (24-48); MEAN CORPUSCULAR HEMOGLOBIN 35 pg (25-35); MEAN CORPUSCULAR HGB CONC 35 g/dL (31-37); MEAN CORPUSCULAR VOLUME 99 fL (79-100); MONO # 1.1 x10^3/uL (0.0-1.1); MONO % 7 % (0-9); NEUT # 12.9 x10^3/uL (1.8-7.7); NEUT % 81 % (31-73); PLATELET COUNT 320 x10^3/uL (140-400); RED BLOOD COUNT 4.64 x10^6/uL (3.50-5.40); RED CELL DISTRIBUTION WIDTH 12.6 % (11.5-14.5); WHITE BLOOD COUNT 15.9 x10^3/uL (4.0-11.0)
[2019-10-17 08:39] LABS: ALBUMIN 2.5 g/dL (3.4-5.0); ALBUMIN/GLOBULIN RATIO 0.6 (1.0-1.7); GFR 59.2; POTASSIUM 3.1 mmol/L (3.5-5.1); TOTAL BILIRUBIN 1.2 mg/dL (0.2-1.0); TOTAL PROTEIN 6.7 g/dL (6.4-8.2)
--- NOTE | 2019-10-17 09:42 | NUR ---
SW following. Discussed with RN, pt from home with , advanced to clear liquid diet. Zosyn q6. SW will continue to follow.
[2019-10-17] MEDS: HYDROmorphone 2 MG/ML VIAL IVP PRN (09:55)
[2019-10-17 10:50] VITALS: BP 100/70
[2019-10-17 14:35] VITALS: BP 116/87
[2019-10-17] MEDS ORDERED: POTASSIUM CHLORIDE 20 MEQ TABLET.ER. PO ONE (14:45)
--- NOTE | 2019-10-17 16:33 | PDOC ---
PROGRESS NOTES Date of Service: DATE: 10/17/19 TIME: 16:33 Chief Complaint Chief Complaint Images: Images CT abdomen pelvis Impression: 1. There is evidence of acute appendicitis, no abscess or free air. 2. There is diffuse prominent hepatic steatosis. 3. There are bilateral renal cysts, some other smaller hypodense foci of the kidneys bilaterally too small to further accurately characterize. 4. There is a small left lower lobe noncalcified pulmonary nodule. If increased risk factors for neoplasm, optional 12 month follow-up could be performed as per revised Fleischner guidelines, no additional follow up needed if low risk factors. impression Assessment/Plan Acute abdominal pain due to acute appendicitis status post laparoscopic appendectomy 10/14/2019 Admit to medicine Pending surgical evaluation Likely OR in the morning tomorrow Continue IV morphine PRN Continue IV fluids Continue IV Zosyn Serial abdominal exams Follow-up blood cultures Lovenox for DVT prophylaxis ADA diet Full code Discussed with RN and SW Disposition [facility] Surrogate decision maker is self Assessment/Plan Assessment/Plan Acute abdominal pain due to acute appendicitis pod # 2 10/15 VOMITED X 3 TODAY Admit to medicine Pending surgical evaluation Continue IV morphine PRN Continue IV fluids Continue IV Zosyn Serial abdominal exams Follow-up blood cultures Lovenox for DVT prophylaxis ADA diet Full code Discussed with RN Surrogate decision maker is self Justifications for Admission Justifications for Admission Other Justification History of Present Illness History of Present Illness Patient is a 49-year-old female with past medical history of hypothyroidism, pituitary mass status post resection, hype osteoporosis who presents with abdominal pain that started approximately 9:00 10/12. Patient is referred from a local urgent care and concern for possible appendicitis. Patient's pain is described as sharp and in the right lower quadrant. Pain is 10 out of 10. There is associated nausea vomiting. Patient has not eating anything since 10:00 last night. Denies shortness of breath, dysuria, bloody stools. There is no other exacerbating or alleviating factors 10/15/2019 No acute events overnight. Patient with some vomiting. IV Zofran PRN. Patient's chart, labs, images were reviewed and discussed with RN 10/17/2019 Patient states she is tolerating clears, denies any vomiting. Bowel function improving. Discussed with RN. Vitals Vitals Vital Signs Date Time Temp Pulse Resp B/P (MAP) Pulse Ox O2 Delivery O2 Flow Rate FiO2 10/17/19 16:00 97 Nasal Cannula 2.0 10/17/19 14:35 98.4 87 16 116/87 (97) 98.4 Physical Exam Physical Exam GEN: No apparent distress. Alert and oriented HEENT: Normal cephalic, atraumatic, external auditory canals are patent NECK: Supple, no JVD, no thyromegaly was noted LUNGS: Bilateral crackles HEART: RRR, S1, S2 present. Peripheral pulses intact, no obvious murmurs noted ABDOMEN: Soft, nontender. Positive bowel sounds, no organomegaly, normal bowel sounds. Laparoscopic incision sites are well healing. No bleeding EXTREMITIES: Without clubbing, cyanosis, or edema. Pedal pulses intact. Negative Homans sign General: Alert, Oriented X3, Cooperative, mild distress Heart: Regular rate, Normal S1, No murmurs Abdomen: Normal bowel sounds, Soft, Other (Mild incisional tenderness wounds clean dry and intact) Extremities: No cyanosis, No edema Labs LABS Laboratory Tests Test 10/17/19 07:35 White Blood Count 15.9 x10^3/uL (4.0-11.0) Red Blood Count 4.64 x10^6/uL (3.50-5.40) Hemoglobin 16.0 g/dL (12.0-15.5) Hematocrit 46.1 % (36.0-47.0) Mean Corpuscular Volume 99 fL (79-100) Mean Corpuscular Hemoglobin 35 pg (25-35) Mean Corpuscular Hemoglobin Concent 35 g/dL (31-37) Red Cell Distribution Width 12.6 % (11.5-14.5) Platelet Count 320 x10^3/uL (140-400) Neutrophils (%) (Auto) 81 % (31-73) Lymphocytes (%) (Auto) 11 % (24-48) Monocytes (%) (Auto) 7 % (0-9) Eosinophils (%) (Auto) 0 % (0-3) Basophils (%) (Auto) 1 % (0-3) Neutrophils # (Auto) 12.9 x10^3/uL (1.8-7.7) Lymphocytes # (Auto) 1.8 x10^3/uL (1.0-4.8) Monocytes # (Auto) 1.1 x10^3/uL (0.0-1.1) Eosinophils # (Auto) 0.1 x10^3/uL (0.0-0.7) Basophils # (Auto) 0.1 x10^3/uL (0.0-0.2) Sodium Level 140 mmol/L (136-145) Potassium Level 3.1 mmol/L (3.5-5.1) Chloride Level 102 mmol/L (98-107) Carbon Dioxide Level 24 mmol/L (21-32) Anion Gap 14 (6-14) Blood Urea Nitrogen 21 mg/dL (7-20) Creatinine 1.0 mg/dL (0.6-1.0) Estimated GFR (Cockcroft-Gault) 59.2 BUN/Creatinine Ratio 21 (6-20) Glucose Level 50 mg/dL (70-99) Calcium Level 8.0 mg/dL (8.5-10.1) Total Bilirubin 1.2 mg/dL (0.2-1.0) Aspartate Amino Transf (AST/SGOT) 37 U/L (15-37) Alanine Aminotransferase (ALT/SGPT) 52 U/L (14-59) Alkaline Phosphatase 124 U/L (46-116) Total Protein 6.7 g/dL (6.4-8.2) Albumin 2.5 g/dL (3.4-5.0) Albumin/Globulin Ratio 0.6 (1.0-1.7) Assessment and Plan Assessmemt and Plan Problems Medical Problems: (1) Abdominal pain Status: Acute (2) Acute appendicitis Status: Acute (3) Elevated LFTs Status: Acute (4) Hypomagnesemia Status: Acute Comment Review of Relevant I have reviewed the following items trinh (where applicable) has been applied. Labs Laboratory Tests Test 10/17/19 07:35 White Blood Count 15.9 x10^3/uL (4.0-11.0) Red Blood Count 4.64 x10^6/uL (3.50-5.40) Hemoglobin 16.0 g/dL (12.0-15.5) Hematocrit 46.1 % (36.0-47.0) Mean Corpuscular Volume 99 fL (79-100) Mean Corpuscular Hemoglobin 35 pg (25-35) Mean Corpuscular Hemoglobin Concent 35 g/dL (31-37) Red Cell Distribution Width 12.6 % (11.5-14.5) Platelet Count 320 x10^3/uL (140-400) Neutrophils (%) (Auto) 81 % (31-73) Lymphocytes (%) (Auto) 11 % (24-48) Monocytes (%) (Auto) 7 % (0-9) Eosinophils (%) (Auto) 0 % (0-3) Basophils (%) (Auto) 1 % (0-3) Neutrophils # (Auto) 12.9 x10^3/uL (1.8-7.7) Lymphocytes # (Auto) 1.8 x10^3/uL (1.0-4.8) Monocytes # (Auto) 1.1 x10^3/uL (0.0-1.1) Eosinophils # (Auto) 0.1 x10^3/uL (0.0-0.7) Basophils # (Auto) 0.1 x10^3/uL (0.0-0.2) Sodium Level 140 mmol/L (136-145) Potassium Level 3.1 mmol/L (3.5-5.1) Chloride Level 102 mmol/L (98-107) Carbon Dioxide Level 24 mmol/L (21-32) Anion Gap 14 (6-14) Blood Urea Nitrogen 21 mg/dL (7-20) Creatinine 1.0 mg/dL (0.6-1.0) Estimated GFR (Cockcroft-Gault) 59.2 BUN/Creatinine Ratio 21 (6-20) Glucose Level 50 mg/dL (70-99) Calcium Level 8.0 mg/dL (8.5-10.1) Total Bilirubin 1.2 mg/dL (0.2-1.0) Aspartate Amino Transf (AST/SGOT) 37 U/L (15-37) Alanine Aminotransferase (ALT/SGPT) 52 U/L (14-59) Alkaline Phosphatase 124 U/L (46-116) Total Protein 6.7 g/dL (6.4-8.2) Albumin 2.5 g/dL (3.4-5.0) Albumin/Globulin Ratio 0.6 (1.0-1.7) Laboratory Tests Test 10/17/19 07:35 White Blood Count 15.9 x10^3/uL (4.0-11.0) Red Blood Count 4.64 x10^6/uL (3.50-5.40) Hemoglobin 16.0 g/dL (12.0-15.5) Hematocrit 46.1 % (36.0-47.0) Mean Corpuscular Volume 99 fL (79-100) Mean Corpuscular Hemoglobin 35 pg (25-35) Mean Corpuscular Hemoglobin Concent 35 g/dL (31-37) Red Cell Distribution Width 12.6 % (11.5-14.5) Platelet Count 320 x10^3/uL (140-400) Neutrophils (%) (Auto) 81 % (31-73) Lymphocytes (%) (Auto) 11 % (24-48) Monocytes (%) (Auto) 7 % (0-9) Eosinophils (%) (Auto) 0 % (0-3) Basophils (%) (Auto) 1 % (0-3) Neutrophils # (Auto) 12.9 x10^3/uL (1.8-7.7) Lymphocytes # (Auto) 1.8 x10^3/uL (1.0-4.8) Monocytes # (Auto) 1.1 x10^3/uL (0.0-1.1) Eosinophils # (Auto) 0.1 x10^3/uL (0.0-0.7) Basophils # (Auto) 0.1 x10^3/uL (0.0-0.2) Sodium Level 140 mmol/L (136-145) Potassium Level 3.1 mmol/L (3.5-5.1) Chloride Level 102 mmol/L (98-107) Carbon Dioxide Level 24 mmol/L (21-32) Anion Gap 14 (6-14) Blood Urea Nitrogen 21 mg/dL (7-20) Creatinine 1.0 mg/dL (0.6-1.0) Estimated GFR (Cockcroft-Gault) 59.2 BUN/Creatinine Ratio 21 (6-20) Glucose Level 50 mg/dL (70-99) Calcium Level 8.0 mg/dL (8.5-10.1) Total Bilirubin 1.2 mg/dL (0.2-1.0) Aspartate Amino Transf (AST/SGOT) 37 U/L (15-37) Alanine Aminotransferase (ALT/SGPT) 52 U/L (14-59) Alkaline Phosphatase 124 U/L (46-116) Total Protein 6.7 g/dL (6.4-8.2) Albumin 2.5 g/dL (3.4-5.0) Albumin/Globulin Ratio 0.6 (1.0-1.7) Microbiology 10/13/19 Urine Culture - Final, Complete Medications Current Medications Fentanyl Citrate (Fentanyl 2ml Vial) 50 mcg 1X ONCE IVP Last administered on 10/13/19at 17:40; Start 10/13/19 at 17:15; Stop 10/13/19 at 17:18; Status DC Ondansetron HCl (Zofran) 4 mg 1X ONCE IVP Last administered on 10/13/19at 17:40; Start 10/13/19 at 17:15; Stop 10/13/19 at 17:18; Status DC Famotidine (Pepcid Vial) 20 mg 1X ONCE IVP Last administered on 10/13/19at 17:40; Start 10/13/19 at 17:15; Stop 10/13/19 at 17:18; Status DC Sodium Chloride 1,000 ml @ 1,000 mls/hr 1X ONCE IV Last administered on 10/13/19at 17:38; Start 10/13/19 at 17:30; Stop 10/13/19 at 18:29; Status DC Iohexol (Omnipaque 240 Mg/ml) 30 ml 1X ONCE PO Last administered on 10/13/19at 18:15; Start 10/13/19 at 18:15; Stop 10/13/19 at 18:18; Status DC Iohexol (Omnipaque 300 Mg/ml) 75 ml 1X ONCE IV Last administered on 10/13/19at 18:15; Start 10/13/19 at 18:15; Stop 10/13/19 at 18:18; Status DC Fentanyl Citrate (Fentanyl 2ml Vial) 50 mcg 1X ONCE IV Last administered on 10/13/19at 18:34; Start 10/13/19 at 18:45; Stop 10/13/19 at 18:46; Status DC Info (CONTRAST GIVEN -- Rx MONITORING) 1 each PRN DAILY PRN MC SEE COMMENTS; Start 10/13/19 at 18:30; Stop 10/15/19 at 18:29; Status DC Magnesium Sulfate 50 ml @ 25 mls/hr 1X ONCE IV Last administered on 10/13/19at 20:03; Start 10/13/19 at 19:30; Stop 10/13/19 at 21:29; Status DC Piperacillin Sod/ Tazobactam Sod 3.375 gm/Sodium Chloride 50 ml @ 100 mls/hr 1X ONCE IV ; Start 10/13/19 at 20:00; Stop 10/13/19 at 20:29; Status Cancel Morphine Sulfate (Morphine Sulfate) 4 mg 1X ONCE IV Last administered on 10/13/19at 19:37; Start 10/13/19 at 19:45; Stop 10/13/19 at 19:46; Status DC Ondansetron HCl (Zofran) 4 mg PRN Q8HRS PRN IV NAUSEA/VOMITING Last administered on 10/14/19at 11:16; Start 10/13/19 at 20:00; Stop 10/14/19 at 19:59; Status DC Morphine Sulfate (Morphine Sulfate) 4 mg PRN Q2HR PRN IV PAIN Last administered on 10/14/19at 11:17; Start 10/13/19 at 20:00; Stop 10/14/19 at 19:59; Status DC Sodium Chloride 1,000 ml @ 125 mls/hr Q8H IV Last administered on 10/14/19at 11:09; Start 10/13/19 at 19:53; Stop 10/14/19 at 19:52; Status DC Piperacillin Sod/ Tazobactam Sod 3.375 gm/Sodium Chloride 50 ml @ 100 mls/hr 1X IV ; Start 10/13/19 at 20:00; Stop 10/14/19 at 09:47; Status DC Enoxaparin Sodium (Lovenox 40mg Syringe) 40 mg Q24H SQ Last administered on 10/16/19at 21:19; Start 10/13/19 at 22:00 Piperacillin Sod/ Tazobactam Sod 3.375 gm/Sodium Chloride 50 ml @ 100 mls/hr Q6HRS IV Last administered on 10/17/19at 12:14; Start 10/14/19 at 10:00 Bupivacaine HCl/ Epinephrine Bitart (Sensorcain-Epi 0.5%-1:[id number] Mpf) 30 ml STK-MED ONCE .ROUTE Last administered on 10/14/19at 13:46; Start 10/14/19 at 10:32; Stop 10/14/19 at 10:32; Status DC Propofol (Diprivan) 200 mg STK-MED ONCE IV ; Start 10/14/19 at 12:12; Stop 10/14/19 at 12:12; Status DC Lidocaine HCl (Lidocaine Pf 2% Vial) 5 ml STK-MED ONCE .ROUTE ; Start 10/14/19 at 12:12; Stop 10/14/19 at 12:12; Status DC Dexamethasone Sodium Phosphate (Decadron) 4 mg STK-MED ONCE .ROUTE ; Start 10/14/19 at 12:12; Stop 10/14/19 at 12:12; Status DC Ondansetron HCl (Zofran) 4 mg STK-MED ONCE .ROUTE ; Start 10/14/19 at 12:12; Stop 10/14/19 at 12:12; Status DC Rocuronium Antigo (Zemuron) 50 mg STK-MED ONCE .ROUTE ; Start 10/14/19 at 12:12; Stop 10/14/19 at 12:13; Status DC Succinylcholine Chloride (Anectine) 200 mg STK-MED ONCE .ROUTE ; Start 10/14/19 at 12:12; Stop 10/14/19 at 12:13; Status DC Midazolam HCl (Versed) 2 mg STK-MED ONCE .ROUTE ; Start 10/14/19 at 12:13; Stop 10/14/19 at 12:13; Status DC Fentanyl Citrate (Fentanyl 2ml Vial) 100 mcg STK-MED ONCE .ROUTE ; Start 10/14/19 at 12:13; Stop 10/14/19 at 12:13; Status DC Ondansetron HCl (Zofran) 4 mg PRN Q6HRS PRN IV NAUSEA/VOMITING Last administered on 10/15/19at 12:08; Start 10/14/19 at 12:45; Stop 10/15/19 at 12:44; Status DC Fentanyl Citrate (Fentanyl 2ml Vial) 25 mcg PRN Q5MIN PRN IV MILD PAIN 1-3; Start 10/14/19 at 12:45; Stop 10/15/19 at 12:44; Status DC Fentanyl Citrate (Fentanyl 2ml Vial) 50 mcg PRN Q5MIN PRN IV MODERATE TO SEVERE PAIN Last administered on 10/15/19at 12:03; Start 10/14/19 at 12:45; Stop 10/15/19 at 12:44; Status DC Morphine Sulfate (Morphine Sulfate) 1 mg PRN Q10MIN PRN IV SEVERE PAIN 7-10; Start 10/14/19 at 12:45; Stop 10/15/19 at 12:44; Status DC Ringer's Solution 1,000 ml @ 30 mls/hr Q24H IV ; Start 10/14/19 at 12:40; Stop 10/15/19 at 00:39; Status DC Lidocaine HCl (Xylocaine-Mpf 1% 2ml Vial) 2 ml PRN 1X PRN ID PRIOR TO IV START; Start 10/14/19 at 12:45; Stop 10/15/19 at 12:44; Status DC Hydromorphone HCl (Dilaudid) 0.5 mg PRN Q10MIN PRN IV SEV PAIN, Second choice; Start 10/14/19 at 12:45; Stop 10/15/19 at 12:44; Status DC Prochlorperazine Edisylate (Compazine) 5 mg PACU PRN PRN IV NAUSEA, MRX1; Start 10/14/19 at 12:45; Stop 10/15/19 at 12:44; Status DC Sevoflurane (Ultane) 60 ml STK-MED ONCE IH ; Start 10/14/19 at 13:46; Stop 10/14/19 at 13:46; Status DC Magnesium Sulfate 50 ml @ 25 mls/hr 1X ONCE IV ; Start 10/14/19 at 15:00; Stop 10/14/19 at 16:59; Status DC Glycopyrrolate (Robinul) 1 mg STK-MED ONCE .ROUTE ; Start 10/14/19 at 14:25; Stop 10/14/19 at 14:26; Status DC Neostigmine Antigo (Neostigmine Methylsulfate) 5 mg STK-MED ONCE .ROUTE ; Start 10/14/19 at 14:26; Stop 10/14/19 at 14:26; Status DC Lactobacillus Rhamnosus (Culturelle) 1 cap BID PO ; Start 10/15/19 at 21:00; Stop 10/16/19 at 14:28; Status DC Ondansetron HCl (Zofran) 4 mg PRN Q4HRS PRN IVP NAUSEA/VOMITING Last administered on 10/16/19at 08:36; Start 10/15/19 at 13:30 Ondansetron HCl (Zofran) 4 mg 1X ONCE IVP Last administered on 10/15/19at 14:03; Start 10/15/19 at 14:00; Stop 10/15/19 at 14:01; Status DC Hydromorphone HCl (Dilaudid) 0.4 mg PRN Q2HR PRN IVP PAIN Last administered on 10/17/19at 09:55; Start 10/15/19 at 16:45 Iohexol (Omnipaque 300 Mg/ml) 60 ml 1X ONCE IV Last administered on 10/16/19at 11:03; Start 10/16/19 at 10:45; Stop 10/16/19 at 10:46; Status DC Info (CONTRAST GIVEN -- Rx MONITORING) 1 each PRN DAILY PRN MC SEE COMMENTS; Start 10/16/19 at 10:45; Stop 10/18/19 at 10:44 Potassium Chloride (Klor-Con) 40 meq 1X ONCE PO Last administered on 10/17/19at 15:04; Start 10/17/19 at 14:45; Stop 10/17/19 at 14:46; Status DC Active Scripts Active Cyclobenzaprine Hcl 10 Mg Tablet 10 Mg PO TID PRN 7 Days Naprosyn (Naproxen) 500 Mg Tablet 500 Mg PO BID Ocuflox (Ofloxacin) 5 Ml Drops 1 Drop OS QID Use during the day and while outside the home. Erythromycin (Erythromycin Base) 3.5 Gm Oint...g. 1 Rochelle OS BID Use at home and at night. Vitals/I & O Vital Sign - Last 24 Hours 10/16/19 10/16/19 10/17/19 10/17/19 19:00 23:00 03:00 07:00 Temp 98.1 97.4 97.4 97.7 98.1 97.4 97.4 97.7 Pulse 86 88 86 87 Resp 19 19 18 17 B/P (MAP) 132/93 (106) 136/88 (104) 138/94 (109) 128/87 (101) Pulse Ox 92 92 92 93 O2 Delivery Room Air Nasal Cannula Room Air Room Air O2 Flow Rate 2.0 8/31/20 8/31/20 8/31/20 8/31/20 09:55 10:10 10:50 14:35 Temp 98.1 98.4 98.1 98.4 Pulse 91 87 Resp 12 16 B/P (MAP) 100/70 (80) 116/87 (97) Pulse Ox 98 89 O2 Delivery Room Air Room Air Room Air Room Air 10/17/19 16:00 Pulse Ox 97 O2 Delivery Nasal Cannula O2 Flow Rate 2.0 Intake and Output 10/16/19 10/16/19 10/17/19 15:00 23:00 07:00 Intake Total 0 ml 0 ml Balance 0 ml 0 ml Justicifation of Admission Dx: Justifications for Admission: Justification of Admission Dx: Yes VONDA HESTER MD Oct 17, 2019 16:33
[2019-10-17 19:00] VITALS: BP 126/85
[2019-10-17] MEDS: ENOXAPARIN 40 MG/0.4 ML SYRINGE. SQ SCH (21:32)
[2019-10-17 23:00] VITALS: BP 117/79
[2019-10-18] MEDS: PIPERACILLIN/TAZOBACTAM 3.375 GM in IV NORMAL SALINE 50ML 50 ML IV SCH ×5 (00:14→23:57)
[2019-10-18] MEDS: ONDANSETRON PF 4 MG/2 ML VIAL. IVP PRN (01:37)
[2019-10-18 03:00] VITALS: BP 120/87
[2019-10-18] MEDS: HYDROmorphone 2 MG/ML VIAL IVP PRN (06:10)
[2019-10-18 06:57] LABS: ALBUMIN 2.5 g/dL (3.4-5.0); ALBUMIN/GLOBULIN RATIO 0.7 (1.0-1.7); CALCIUM 8.4 mg/dL (8.5-10.1); CREATININE 0.7 mg/dL (0.6-1.0); GFR 89.3; POTASSIUM 3.4 mmol/L (3.5-5.1); TOTAL BILIRUBIN 1.2 mg/dL (0.2-1.0); TOTAL PROTEIN 5.9 g/dL (6.4-8.2)
[2019-10-18 07:00] VITALS: BP 87/51
--- NOTE | 2019-10-18 09:23 | NUR ---
SW following. Discussed with RN, pt from home room air, clear liquid diet, PEDRO drain. Per RN, pt's urine is green today. SW will continue to follow.
[2019-10-18 11:00] VITALS: BP 90/61
--- NOTE | 2019-10-18 12:10 | PDOC ---
HARMEET JI CINDER [employer] OPERATOR 10/18/19 1210: SURGICAL PROGRESS NOTE DATE: 10/18/19 TIME: 12:08 Subjective not sleeping well at night having stools pain improving Vital Signs Vital Signs Date Time Temp Pulse Resp B/P (MAP) Pulse Ox O2 Delivery O2 Flow Rate FiO2 10/18/19 11:00 98.3 84 18 90/61 (71) 92 Room Air 98.3 10/17/19 19:00 2.0 I&O Intake and Output 10/18/19 07:00 Intake Total 240 ml Output Total 770 ml Balance -530 ml Intake Oral 240 ml Output Urine Total 450 ml Drainage Total 320 ml # Voids 2 General: Alert, Oriented X3, Cooperative Abdomen: Soft, Other (drain serosang) Labs Laboratory Tests Test 10/17/19 07:35 10/18/19 05:00 White Blood Count 15.9 x10^3/uL (4.0-11.0) Red Blood Count 4.64 x10^6/uL (3.50-5.40) Hemoglobin 16.0 g/dL (12.0-15.5) Hematocrit 46.1 % (36.0-47.0) Mean Corpuscular Volume 99 fL (79-100) Mean Corpuscular Hemoglobin 35 pg (25-35) Mean Corpuscular Hemoglobin Concent 35 g/dL (31-37) Red Cell Distribution Width 12.6 % (11.5-14.5) Platelet Count 320 x10^3/uL (140-400) Neutrophils (%) (Auto) 81 % (31-73) Lymphocytes (%) (Auto) 11 % (24-48) Monocytes (%) (Auto) 7 % (0-9) Eosinophils (%) (Auto) 0 % (0-3) Basophils (%) (Auto) 1 % (0-3) Neutrophils # (Auto) 12.9 x10^3/uL (1.8-7.7) Lymphocytes # (Auto) 1.8 x10^3/uL (1.0-4.8) Monocytes # (Auto) 1.1 x10^3/uL (0.0-1.1) Eosinophils # (Auto) 0.1 x10^3/uL (0.0-0.7) Basophils # (Auto) 0.1 x10^3/uL (0.0-0.2) Sodium Level 140 mmol/L (136-145) 136 mmol/L (136-145) Potassium Level 3.1 mmol/L (3.5-5.1) 3.4 mmol/L (3.5-5.1) Chloride Level 102 mmol/L (98-107) 97 mmol/L (98-107) Carbon Dioxide Level 24 mmol/L (21-32) 25 mmol/L (21-32) Anion Gap 14 (6-14) 14 (6-14) Blood Urea Nitrogen 21 mg/dL (7-20) 14 mg/dL (7-20) Creatinine 1.0 mg/dL (0.6-1.0) 0.7 mg/dL (0.6-1.0) Estimated GFR (Cockcroft-Gault) 59.2 89.3 BUN/Creatinine Ratio 21 (6-20) 20 (6-20) Glucose Level 50 mg/dL (70-99) 59 mg/dL (70-99) Calcium Level 8.0 mg/dL (8.5-10.1) 8.4 mg/dL (8.5-10.1) Total Bilirubin 1.2 mg/dL (0.2-1.0) 1.2 mg/dL (0.2-1.0) Aspartate Amino Transf (AST/SGOT) 37 U/L (15-37) 30 U/L (15-37) Alanine Aminotransferase (ALT/SGPT) 52 U/L (14-59) 45 U/L (14-59) Alkaline Phosphatase 124 U/L (46-116) 127 U/L (46-116) Total Protein 6.7 g/dL (6.4-8.2) 5.9 g/dL (6.4-8.2) Albumin 2.5 g/dL (3.4-5.0) 2.5 g/dL (3.4-5.0) Albumin/Globulin Ratio 0.6 (1.0-1.7) 0.7 (1.0-1.7) Laboratory Tests Test 10/18/19 05:00 Sodium Level 136 mmol/L (136-145) Potassium Level 3.4 mmol/L (3.5-5.1) Chloride Level 97 mmol/L (98-107) Carbon Dioxide Level 25 mmol/L (21-32) Anion Gap 14 (6-14) Blood Urea Nitrogen 14 mg/dL (7-20) Creatinine 0.7 mg/dL (0.6-1.0) Estimated GFR (Cockcroft-Gault) 89.3 BUN/Creatinine Ratio 20 (6-20) Glucose Level 59 mg/dL (70-99) Calcium Level 8.4 mg/dL (8.5-10.1) Total Bilirubin 1.2 mg/dL (0.2-1.0) Aspartate Amino Transf (AST/SGOT) 30 U/L (15-37) Alanine Aminotransferase (ALT/SGPT) 45 U/L (14-59) Alkaline Phosphatase 127 U/L (46-116) Total Protein 5.9 g/dL (6.4-8.2) Albumin 2.5 g/dL (3.4-5.0) Albumin/Globulin Ratio 0.7 (1.0-1.7) Problem List Problems Medical Problems: (1) Abdominal pain Status: Acute (2) Acute appendicitis Status: Acute (3) Elevated LFTs Status: Acute (4) Hypomagnesemia Status: Acute Assessment/Plan advance to [place] cbc in AM Justicifation of Admission Dx: Justifications for Admission: Justification of Admission Dx: Yes GIOVANNY KIM MD 10/18/19 1238: SURGICAL PROGRESS NOTE Assessment/Plan Agree with Adama assessment and plan. If white count continues to elevate may need repeat CT for evaluation of abscess continue supportive care HARMEET JI APRN Oct 18, 2019 12:10 GIOVANNY KIM MD Oct 18, 2019 12:38
[2019-10-18 13:40] LABS: BASO # 0.1 x10^3/uL (0.0-0.2); BASO % 1 % (0-3); EOS # 0.2 x10^3/uL (0.0-0.7); EOS % 1 % (0-3); HEMATOCRIT 45.1 % (36.0-47.0); HEMOGLOBIN 15.6 g/dL (12.0-15.5); LYMPH # 2.4 x10^3/uL (1.0-4.8); LYMPH % 16 % (24-48); MEAN CORPUSCULAR HEMOGLOBIN 34 pg (25-35); MEAN CORPUSCULAR HGB CONC 35 g/dL (31-37); MEAN CORPUSCULAR VOLUME 100 fL (79-100); MONO # 1.7 x10^3/uL (0.0-1.1); MONO % 11 % (0-9); NEUT # 10.6 x10^3/uL (1.8-7.7); NEUT % 71 % (31-73); PLATELET COUNT 344 x10^3/uL (140-400); RED BLOOD COUNT 4.53 x10^6/uL (3.50-5.40); RED CELL DISTRIBUTION WIDTH 12.6 % (11.5-14.5)
--- NOTE | 2019-10-18 14:55 | PDOC ---
PROGRESS NOTES Date of Service: DATE: 10/18/19 TIME: 14:54 Chief Complaint Chief Complaint Images: Images CT abdomen pelvis Impression: 1. There is evidence of acute appendicitis, no abscess or free air. 2. There is diffuse prominent hepatic steatosis. 3. There are bilateral renal cysts, some other smaller hypodense foci of the kidneys bilaterally too small to further accurately characterize. 4. There is a small left lower lobe noncalcified pulmonary nodule. If increased risk factors for neoplasm, optional 12 month follow-up could be performed as per revised Fleischner guidelines, no additional follow up needed if low risk factors. impression Assessment/Plan Acute abdominal pain due to acute appendicitis status post laparoscopic appendectomy 10/14/2019 Admit to medicine Pending surgical evaluation Likely OR in the morning tomorrow Continue IV morphine PRN Continue IV fluids Continue IV Zosyn Serial abdominal exams Follow-up blood cultures Lovenox for DVT prophylaxis ADA diet Full code Discussed with RN and SW Wendy OCTOR Surrogate decision maker is self Assessment/Plan Assessment/Plan Acute abdominal pain due to acute appendicitis pod # 2 10/15 VOMITED X 3 TODAY Admit to medicine Pending surgical evaluation Continue IV morphine PRN Continue IV fluids Continue IV Zosyn Serial abdominal exams Follow-up blood cultures Lovenox for DVT prophylaxis ADA diet Full code Discussed with RN Surrogate decision maker is self Justifications for Admission Justifications for Admission Other Justification History of Present Illness History of Present Illness Patient is a 49-year-old female with past medical history of hypothyroidism, pituitary mass status post resection, hype osteoporosis who presents with abdominal pain that started approximately 9:00 10/12. Patient is referred from a local urgent care and concern for possible appendicitis. Patient's pain is described as sharp and in the right lower quadrant. Pain is 10 out of 10. There is associated nausea vomiting. Patient has not eating anything since 10:00 last night. Denies shortness of breath, dysuria, bloody stools. There is no other exacerbating or alleviating factors 10/15/2019 No acute events overnight. Patient with some vomiting. IV Zofran PRN. Patient's chart, labs, images were reviewed and discussed with RN 10/17/2019 Patient states she is tolerating clears, denies any vomiting. Bowel function improving. Discussed with RN. 10/18/2019 Patient evaluated bedside. States the pain is improving. Tolerating clears. Had bowel movement this morning. Denies nausea or vomiting. Discussed with RN. Vitals Vitals Vital Signs Date Time Temp Pulse Resp B/P (MAP) Pulse Ox O2 Delivery O2 Flow Rate FiO2 10/18/19 11:00 98.3 84 18 90/61 (71) 92 Room Air 98.3 10/17/19 19:00 2.0 Physical Exam Physical Exam GEN: No apparent distress. Alert and oriented HEENT: Normal cephalic, atraumatic, external auditory canals are patent NECK: Supple, no JVD, no thyromegaly was noted LUNGS: Bilateral crackles HEART: RRR, S1, S2 present. Peripheral pulses intact, no obvious murmurs noted ABDOMEN: Soft, nontender. Positive bowel sounds, no organomegaly, normal bowel sounds. Laparoscopic incision sites are well healing. No bleeding EXTREMITIES: Without clubbing, cyanosis, or edema. Pedal pulses intact. Negative Homans sign General: Alert, Oriented X3, Cooperative Heart: Regular rate, Normal S1, No murmurs Abdomen: Soft, Other (drain serosang) Extremities: No cyanosis, No edema Labs LABS Laboratory Tests Test 10/18/19 05:00 White Blood Count 15.0 x10^3/uL (4.0-11.0) Red Blood Count 4.53 x10^6/uL (3.50-5.40) Hemoglobin 15.6 g/dL (12.0-15.5) Hematocrit 45.1 % (36.0-47.0) Mean Corpuscular Volume 100 fL (79-100) Mean Corpuscular Hemoglobin 34 pg (25-35) Mean Corpuscular Hemoglobin Concent 35 g/dL (31-37) Red Cell Distribution Width 12.6 % (11.5-14.5) Platelet Count 344 x10^3/uL (140-400) Neutrophils (%) (Auto) 71 % (31-73) Lymphocytes (%) (Auto) 16 % (24-48) Monocytes (%) (Auto) 11 % (0-9) Eosinophils (%) (Auto) 1 % (0-3) Basophils (%) (Auto) 1 % (0-3) Neutrophils # (Auto) 10.6 x10^3/uL (1.8-7.7) Lymphocytes # (Auto) 2.4 x10^3/uL (1.0-4.8) Monocytes # (Auto) 1.7 x10^3/uL (0.0-1.1) Eosinophils # (Auto) 0.2 x10^3/uL (0.0-0.7) Basophils # (Auto) 0.1 x10^3/uL (0.0-0.2) Sodium Level 136 mmol/L (136-145) Potassium Level 3.4 mmol/L (3.5-5.1) Chloride Level 97 mmol/L (98-107) Carbon Dioxide Level 25 mmol/L (21-32) Anion Gap 14 (6-14) Blood Urea Nitrogen 14 mg/dL (7-20) Creatinine 0.7 mg/dL (0.6-1.0) Estimated GFR (Cockcroft-Gault) 89.3 BUN/Creatinine Ratio 20 (6-20) Glucose Level 59 mg/dL (70-99) Calcium Level 8.4 mg/dL (8.5-10.1) Total Bilirubin 1.2 mg/dL (0.2-1.0) Aspartate Amino Transf (AST/SGOT) 30 U/L (15-37) Alanine Aminotransferase (ALT/SGPT) 45 U/L (14-59) Alkaline Phosphatase 127 U/L (46-116) Total Protein 5.9 g/dL (6.4-8.2) Albumin 2.5 g/dL (3.4-5.0) Albumin/Globulin Ratio 0.7 (1.0-1.7) Review of Systems Review of Systems Abdominal pain. Denies constipation, denies nausea, denies vomiting, denies fever, denies chest pain. Assessment and Plan Assessmemt and Plan Problems Medical Problems: (1) Abdominal pain Status: Acute (2) Acute appendicitis Status: Acute (3) Elevated LFTs Status: Acute (4) Hypomagnesemia Status: Acute Comment Review of Relevant I have reviewed the following items trinh (where applicable) has been applied. Labs Laboratory Tests Test 10/17/19 07:35 10/18/19 05:00 White Blood Count 15.9 x10^3/uL (4.0-11.0) 15.0 x10^3/uL (4.0-11.0) Red Blood Count 4.64 x10^6/uL (3.50-5.40) 4.53 x10^6/uL (3.50-5.40) Hemoglobin 16.0 g/dL (12.0-15.5) 15.6 g/dL (12.0-15.5) Hematocrit 46.1 % (36.0-47.0) 45.1 % (36.0-47.0) Mean Corpuscular Volume 99 fL (79-100) 100 fL (79-100) Mean Corpuscular Hemoglobin 35 pg (25-35) 34 pg (25-35) Mean Corpuscular Hemoglobin Concent 35 g/dL (31-37) 35 g/dL (31-37) Red Cell Distribution Width 12.6 % (11.5-14.5) 12.6 % (11.5-14.5) Platelet Count 320 x10^3/uL (140-400) 344 x10^3/uL (140-400) Neutrophils (%) (Auto) 81 % (31-73) 71 % (31-73) Lymphocytes (%) (Auto) 11 % (24-48) 16 % (24-48) Monocytes (%) (Auto) 7 % (0-9) 11 % (0-9) Eosinophils (%) (Auto) 0 % (0-3) 1 % (0-3) Basophils (%) (Auto) 1 % (0-3) 1 % (0-3) Neutrophils # (Auto) 12.9 x10^3/uL (1.8-7.7) 10.6 x10^3/uL (1.8-7.7) Lymphocytes # (Auto) 1.8 x10^3/uL (1.0-4.8) 2.4 x10^3/uL (1.0-4.8) Monocytes # (Auto) 1.1 x10^3/uL (0.0-1.1) 1.7 x10^3/uL (0.0-1.1) Eosinophils # (Auto) 0.1 x10^3/uL (0.0-0.7) 0.2 x10^3/uL (0.0-0.7) Basophils # (Auto) 0.1 x10^3/uL (0.0-0.2) 0.1 x10^3/uL (0.0-0.2) Sodium Level 140 mmol/L (136-145) 136 mmol/L (136-145) Potassium Level 3.1 mmol/L (3.5-5.1) 3.4 mmol/L (3.5-5.1) Chloride Level 102 mmol/L (98-107) 97 mmol/L (98-107) Carbon Dioxide Level 24 mmol/L (21-32) 25 mmol/L (21-32) Anion Gap 14 (6-14) 14 (6-14) Blood Urea Nitrogen 21 mg/dL (7-20) 14 mg/dL (7-20) Creatinine 1.0 mg/dL (0.6-1.0) 0.7 mg/dL (0.6-1.0) Estimated GFR (Cockcroft-Gault) 59.2 89.3 BUN/Creatinine Ratio 21 (6-20) 20 (6-20) Glucose Level 50 mg/dL (70-99) 59 mg/dL (70-99) Calcium Level 8.0 mg/dL (8.5-10.1) 8.4 mg/dL (8.5-10.1) Total Bilirubin 1.2 mg/dL (0.2-1.0) 1.2 mg/dL (0.2-1.0) Aspartate Amino Transf (AST/SGOT) 37 U/L (15-37) 30 U/L (15-37) Alanine Aminotransferase (ALT/SGPT) 52 U/L (14-59) 45 U/L (14-59) Alkaline Phosphatase 124 U/L (46-116) 127 U/L (46-116) Total Protein 6.7 g/dL (6.4-8.2) 5.9 g/dL (6.4-8.2) Albumin 2.5 g/dL (3.4-5.0) 2.5 g/dL (3.4-5.0) Albumin/Globulin Ratio 0.6 (1.0-1.7) 0.7 (1.0-1.7) Laboratory Tests Test 10/18/19 05:00 White Blood Count 15.0 x10^3/uL (4.0-11.0) Red Blood Count 4.53 x10^6/uL (3.50-5.40) Hemoglobin 15.6 g/dL (12.0-15.5) Hematocrit 45.1 % (36.0-47.0) Mean Corpuscular Volume 100 fL (79-100) Mean Corpuscular Hemoglobin 34 pg (25-35) Mean Corpuscular Hemoglobin Concent 35 g/dL (31-37) Red Cell Distribution Width 12.6 % (11.5-14.5) Platelet Count 344 x10^3/uL (140-400) Neutrophils (%) (Auto) 71 % (31-73) Lymphocytes (%) (Auto) 16 % (24-48) Monocytes (%) (Auto) 11 % (0-9) Eosinophils (%) (Auto) 1 % (0-3) Basophils (%) (Auto) 1 % (0-3) Neutrophils # (Auto) 10.6 x10^3/uL (1.8-7.7) Lymphocytes # (Auto) 2.4 x10^3/uL (1.0-4.8) Monocytes # (Auto) 1.7 x10^3/uL (0.0-1.1) Eosinophils # (Auto) 0.2 x10^3/uL (0.0-0.7) Basophils # (Auto) 0.1 x10^3/uL (0.0-0.2) Sodium Level 136 mmol/L (136-145) Potassium Level 3.4 mmol/L (3.5-5.1) Chloride Level 97 mmol/L (98-107) Carbon Dioxide Level 25 mmol/L (21-32) Anion Gap 14 (6-14) Blood Urea Nitrogen 14 mg/dL (7-20) Creatinine 0.7 mg/dL (0.6-1.0) Estimated GFR (Cockcroft-Gault) 89.3 BUN/Creatinine Ratio 20 (6-20) Glucose Level 59 mg/dL (70-99) Calcium Level 8.4 mg/dL (8.5-10.1) Total Bilirubin 1.2 mg/dL (0.2-1.0) Aspartate Amino Transf (AST/SGOT) 30 U/L (15-37) Alanine Aminotransferase (ALT/SGPT) 45 U/L (14-59) Alkaline Phosphatase 127 U/L (46-116) Total Protein 5.9 g/dL (6.4-8.2) Albumin 2.5 g/dL (3.4-5.0) Albumin/Globulin Ratio 0.7 (1.0-1.7) Microbiology 10/13/19 Urine Culture - Final, Complete Medications Current Medications Fentanyl Citrate (Fentanyl 2ml Vial) 50 mcg 1X ONCE IVP Last administered on 10/13/19at 17:40; Start 10/13/19 at 17:15; Stop 10/13/19 at 17:18; Status DC Ondansetron HCl (Zofran) 4 mg 1X ONCE IVP Last administered on 10/13/19at 17:40; Start 10/13/19 at 17:15; Stop 10/13/19 at 17:18; Status DC Famotidine (Pepcid Vial) 20 mg 1X ONCE IVP Last administered on 10/13/19at 17:40; Start 10/13/19 at 17:15; Stop 10/13/19 at 17:18; Status DC Sodium Chloride 1,000 ml @ 1,000 mls/hr 1X ONCE IV Last administered on 10/13/19at 17:38; Start 10/13/19 at 17:30; Stop 10/13/19 at 18:29; Status DC Iohexol (Omnipaque 240 Mg/ml) 30 ml 1X ONCE PO Last administered on 10/13/19at 18:15; Start 10/13/19 at 18:15; Stop 10/13/19 at 18:18; Status DC Iohexol (Omnipaque 300 Mg/ml) 75 ml 1X ONCE IV Last administered on 10/13/19at 18:15; Start 10/13/19 at 18:15; Stop 10/13/19 at 18:18; Status DC Fentanyl Citrate (Fentanyl 2ml Vial) 50 mcg 1X ONCE IV Last administered on 10/13/19at 18:34; Start 10/13/19 at 18:45; Stop 10/13/19 at 18:46; Status DC Info (CONTRAST GIVEN -- Rx MONITORING) 1 each PRN DAILY PRN MC SEE COMMENTS; Start 10/13/19 at 18:30; Stop 10/15/19 at 18:29; Status DC Magnesium Sulfate 50 ml @ 25 mls/hr 1X ONCE IV Last administered on 10/13/19at 20:03; Start 10/13/19 at 19:30; Stop 10/13/19 at 21:29; Status DC Piperacillin Sod/ Tazobactam Sod 3.375 gm/Sodium Chloride 50 ml @ 100 mls/hr 1X ONCE IV ; Start 10/13/19 at 20:00; Stop 10/13/19 at 20:29; Status Cancel Morphine Sulfate (Morphine Sulfate) 4 mg 1X ONCE IV Last administered on 10/13/19at 19:37; Start 10/13/19 at 19:45; Stop 10/13/19 at 19:46; Status DC Ondansetron HCl (Zofran) 4 mg PRN Q8HRS PRN IV NAUSEA/VOMITING Last administer ed on 10/14/19at 11:16; Start 10/13/19 at 20:00; Stop 10/14/19 at 19:59; Status DC Morphine Sulfate (Morphine Sulfate) 4 mg PRN Q2HR PRN IV PAIN Last administered on 10/14/19at 11:17; Start 10/13/19 at 20:00; Stop 10/14/19 at 19:59; Status DC Sodium Chloride 1,000 ml @ 125 mls/hr Q8H IV Last administered on 10/14/19at 11:09; Start 10/13/19 at 19:53; Stop 10/14/19 at 19:52; Status DC Piperacillin Sod/ Tazobactam Sod 3.375 gm/Sodium Chloride 50 ml @ 100 mls/hr 1X IV ; Start 10/13/19 at 20:00; Stop 10/14/19 at 09:47; Status DC Enoxaparin Sodium (Lovenox 40mg Syringe) 40 mg Q24H SQ Last administered on 10/17/19at 21:32; Start 10/13/19 at 22:00 Piperacillin Sod/ Tazobactam Sod 3.375 gm/Sodium Chloride 50 ml @ 100 mls/hr Q6HRS IV Last administered on 10/18/19at 12:39; Start 10/14/19 at 10:00 Bupivacaine HCl/ Epinephrine Bitart (Sensorcain-Epi 0.5%-1:512248 Mpf) 30 ml STK-MED ONCE .ROUTE Last administered on 8/28/20at 13:46; Start 10/14/19 at 10:32; Stop 10/14/19 at 10:32; Status DC Propofol (Diprivan) 200 mg STK-MED ONCE IV ; Start 10/14/19 at 12:12; Stop 10/14/19 at 12:12; Status DC Lidocaine HCl (Lidocaine Pf 2% Vial) 5 ml STK-MED ONCE .ROUTE ; Start 10/14/19 at 12:12; Stop 10/14/19 at 12:12; Status DC Dexamethasone Sodium Phosphate (Decadron) 4 mg STK-MED ONCE .ROUTE ; Start 10/14/19 at 12:12; Stop 10/14/19 at 12:12; Status DC Ondansetron HCl (Zofran) 4 mg STK-MED ONCE .ROUTE ; Start 10/14/19 at 12:12; Stop 10/14/19 at 12:12; Status DC Rocuronium [place] (Zemuron) 50 mg STK-MED ONCE .ROUTE ; Start 10/14/19 at 12:12; Stop 10/14/19 at 12:13; Status DC Succinylcholine Chloride (Anectine) 200 mg STK-MED ONCE .ROUTE ; Start 10/14/19 at 12:12; Stop 10/14/19 at 12:13; Status DC Midazolam HCl (Versed) 2 mg STK-MED ONCE .ROUTE ; Start 10/14/19 at 12:13; Stop 10/14/19 at 12:13; Status DC Fentanyl Citrate (Fentanyl 2ml Vial) 100 mcg STK-MED ONCE .ROUTE ; Start 10/14/19 at 12:13; Stop 10/14/19 at 12:13; Status DC Ondansetron HCl (Zofran) 4 mg PRN Q6HRS PRN IV NAUSEA/VOMITING Last administered on 10/15/19at 12:08; Start 10/14/19 at 12:45; Stop 10/15/19 at 12:44; Status DC Fentanyl Citrate (Fentanyl 2ml Vial) 25 mcg PRN Q5MIN PRN IV MILD PAIN 1-3; Start 10/14/19 at 12:45; Stop 10/15/19 at 12:44; Status DC Fentanyl Citrate (Fentanyl 2ml Vial) 50 mcg PRN Q5MIN PRN IV MODERATE TO SEVERE PAIN Last administered on 10/15/19at 12:03; Start 10/14/19 at 12:45; Stop 10/15/19 at 12:44; Status DC Morphine Sulfate (Morphine Sulfate) 1 mg PRN Q10MIN PRN IV SEVERE PAIN 7-10; Start 10/14/19 at 12:45; Stop 10/15/19 at 12:44; Status DC Ringer's Solution 1,000 ml @ 30 mls/hr Q24H IV ; Start 10/14/19 at 12:40; Stop 10/15/19 at 00:39; Status DC Lidocaine HCl (Xylocaine-Mpf 1% 2ml Vial) 2 ml PRN 1X PRN ID PRIOR TO IV START; Start 10/14/19 at 12:45; Stop 10/15/19 at 12:44; Status DC Hydromorphone HCl (Dilaudid) 0.5 mg PRN Q10MIN PRN IV SEV PAIN, Second choice; Start 10/14/19 at 12:45; Stop 10/15/19 at 12:44; Status DC Prochlorperazine Edisylate (Compazine) 5 mg PACU PRN PRN IV NAUSEA, MRX1; Start 10/14/19 at 12:45; Stop 10/15/19 at 12:44; Status DC Sevoflurane (Ultane) 60 ml STK-MED ONCE IH ; Start 10/14/19 at 13:46; Stop 10/14/19 at 13:46; Status DC Magnesium Sulfate 50 ml @ 25 mls/hr 1X ONCE IV ; Start 10/14/19 at 15:00; Stop 10/14/19 at 16:59; Status DC Glycopyrrolate (Robinul) 1 mg STK-MED ONCE .ROUTE ; Start 10/14/19 at 14:25; Stop 10/14/19 at 14:26; Status DC Neostigmine [place] (Neostigmine Methylsulfate) 5 mg STK-MED ONCE .ROUTE ; Start 10/14/19 at 14:26; Stop 10/14/19 at 14:26; Status DC Lactobacillus Rhamnosus (Culturelle) 1 cap BID PO ; Start 10/15/19 at 21:00; Stop 10/16/19 at 14:28; Status DC Ondansetron HCl (Zofran) 4 mg PRN Q4HRS PRN IVP NAUSEA/VOMITING Last administered on 10/18/19at 01:37; Start 10/15/19 at 13:30 Ondansetron HCl (Zofran) 4 mg 1X ONCE IVP Last administered on 10/15/19at 14:03; Start 10/15/19 at 14:00; Stop 10/15/19 at 14:01; Status DC Hydromorphone HCl (Dilaudid) 0.4 mg PRN Q2HR PRN IVP PAIN Last administered on 10/18/19at 06:10; Start 10/15/19 at 16:45 Iohexol (Omnipaque 300 Mg/ml) 60 ml 1X ONCE IV Last administered on 10/16/19at 11:03; Start 10/16/19 at 10:45; Stop 10/16/19 at 10:46; Status DC Info (CONTRAST GIVEN -- Rx MONITORING) 1 each PRN DAILY PRN MC SEE COMMENTS; Start 10/16/19 at 10:45; Stop 10/18/19 at 10:44; Status DC Potassium Chloride (Klor-Con) 40 meq 1X ONCE PO Last administered on 10/17/19at 15:04; Start 10/17/19 at 14:45; Stop 10/17/19 at 14:46; Status DC Active Scripts Active Cyclobenzaprine Hcl 10 Mg Tablet 10 Mg PO TID PRN 7 Days Naprosyn (Naproxen) 500 Mg Tablet 500 Mg PO BID Ocuflox (Ofloxacin) 5 Ml Drops 1 Drop OS QID Use during the day and while outside the home. Erythromycin (Erythromycin Base) 3.5 Gm Oint...g. 1 Rochelle OS BID Use at home and at night. Vitals/I & O Vital Sign - Last 24 Hours 10/17/19 10/17/19 10/17/19 10/18/19 16:00 19:00 23:00 03:00 Temp 98.1 97.2 97.2 98.1 97.2 97.2 Pulse 85 87 86 Resp 16 16 16 B/P (MAP) 126/85 (99) 117/79 (92) 120/87 (98) Pulse Ox 97 93 93 94 O2 Delivery Nasal Cannula Nasal Cannula Room Air Room Air O2 Flow Rate 2.0 2.0 10/18/19 10/18/19 10/18/19 10/18/19 06:10 06:52 07:00 08:29 Temp 97.7 97.7 Pulse 90 Resp 16 20 16 B/P (MAP) 87/51 (63) Pulse Ox 91 O2 Delivery Room Air Room Air 10/18/19 11:00 Temp 98.3 98.3 Pulse 84 Resp 18 B/P (MAP) 90/61 (71) Pulse Ox 92 O2 Delivery Room Air Intake and Output 10/17/19 10/17/19 10/18/19 15:00 23:00 07:00 Intake Total 120 ml 120 ml Output Total 300 ml 305 ml 165 ml Balance -180 ml -185 ml -165 ml Nutrition Consultation Dietary Evaluation: Recommendations by RD: Dietary education by RD, Increase Calorie Intake, Add supplement feedings Comments: Add ensure to all meals while on full liquid diet Expected Outcomes/Goals: Pt will meet 75% of needs PO on regular diet Malnutrition Findings: Food and Nutrition Intake (Sev: <50% est energy req 5days Body Fat Depletion (Non Severe: Mild Depletion Reduced Clinical Athletic Instructor Strength (Non-Sev: N/A Weight Status: Appropriate Fluid Accumulation (N/A): N/A Justicifation of Admission Dx: Justifications for Admission: Justification of Admission Dx: Yes VONDA HESTER MD Oct 18, 2019 14:55
[2019-10-18 15:00] VITALS: BP 90/64
--- NOTE | 2019-10-18 18:11 | NUR ---
Poor appetite on a Full liquid diet. Drank Ensure do to the encouragement of the spouse. Offered solid food refused. Requested chicken noodle soup but has not touched it. Has a consult with airplane and engine inspector tomorrow.
[2019-10-18 19:00] VITALS: BP 96/68
[2019-10-18] MEDS: ENOXAPARIN 40 MG/0.4 ML SYRINGE. SQ SCH (22:02)
[2019-10-18 23:00] VITALS: BP 97/69
[2019-10-18] MEDS ORDERED: ZOLPIDEM 5 MG TABLET. PO ONE (23:00)
[2019-10-19] MEDS ORDERED: ZOLPIDEM 5 MG TABLET. PO ONE (00:30)
[2019-10-19 03:00] VITALS: BP 104/74
[2019-10-19 04:43] LABS: BASO % 0 % (0-3); EOS # 0.2 x10^3/uL (0.0-0.7); EOS % 2 % (0-3); HEMATOCRIT 42.6 % (36.0-47.0); HEMOGLOBIN 14.7 g/dL (12.0-15.5); LYMPH # 2.6 x10^3/uL (1.0-4.8); LYMPH % 20 % (24-48); MEAN CORPUSCULAR HEMOGLOBIN 34 pg (25-35); MEAN CORPUSCULAR HGB CONC 35 g/dL (31-37); MEAN CORPUSCULAR VOLUME 98 fL (79-100); MONO # 1.5 x10^3/uL (0.0-1.1); MONO % 12 % (0-9); NEUT # 8.6 x10^3/uL (1.8-7.7); NEUT % 66 % (31-73); PLATELET COUNT 333 x10^3/uL (140-400); RED BLOOD COUNT 4.35 x10^6/uL (3.50-5.40); RED CELL DISTRIBUTION WIDTH 12.8 % (11.5-14.5)
[2019-10-19 04:56] LABS: CALCIUM 8.6 mg/dL (8.5-10.1); CREATININE 0.9 mg/dL (0.6-1.0); GFR 66.8
[2019-10-19] MEDS: PIPERACILLIN/TAZOBACTAM 3.375 GM in IV NORMAL SALINE 50ML 50 ML IV SCH ×4 (05:36→23:59)
[2019-10-19 07:00] VITALS: BP 100/69
--- NOTE | 2019-10-19 09:07 | PATHOLOGY ---
[facility] Accession Number: [id number] . 01 Material submitted: . appendix - APPENDIX AND CONTENTS . 01 Clinical history: . ACUTE APPENDICITIS . 02 Diagnosis: Appendix, laparoscopic appendectomy: - Acute necrotizing (gangrenous) appendicitis. LBQ 10/18/2019 1602 Local . 02 Comment: There is no evidence of malignancy. (JPM/db; 10/18/2019) . 02 Electronically signed: . Jamarcus Leon MD, Pathologist NPI- [id number] . 01 Gross description: . The specimen is received in formalin, labeled "Duong, Mini, appendix and contents" and consists of an appendix measuring 5.2 cm in length and up to 0.5 cm in diameter with mesoappendix measuring 0.5 cm thick. The serosa is will-brown and ragged. The margin is closed with a line of amando and inked black. Sectioning reveals a dilated lumen. Systems Test Engineer sections are submitted in A1. (SDY; 10/17/2019) SYU/SYU 10/17/2019 1554 Local . 02 Pathologist provided ICD-10: K35.80 . 02 CPT . 031494 Specimen Comment: A courtesy copy of this report has been sent to [phone] Specimen Comment: [phone], Specimen Comment: Report sent to ,DR HARDING / DR DE JESUS Performed at: 01 [facility] [address], [place] [id number] MD Tay Biggs MD Phone: [phone] Performed at: 02 [facility] [address], [place] [id number] MD Jamarcus Leon MD Phone: [phone]
--- NOTE | 2019-10-19 09:38 | NUR ---
SW following. Discussed with RN, pt from home, room air, full liquid diet. Pt a little confused today. RN advised no SW needs. SW will continue to follow should any needs arise.
--- NOTE | 2019-10-19 10:01 | PDOC ---
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50-5.40) 4.35 x10^6/uL (3.50-5.40) Hemoglobin 15.6 g/dL (12.0-15.5) 14.7 g/dL (12.0-15.5) Hematocrit 45.1 % (36.0-47.0) 42.6 % (36.0-47.0) Mean Corpuscular Volume 100 fL (79-100) 98 fL (79-100) Mean Corpuscular Hemoglobin 34 pg (25-35) 34 pg (25-35) Mean Corpuscular Hemoglobin Concent 35 g/dL (31-37) 35 g/dL (31-37) Red Cell Distribution Width 12.6 % (11.5-14.5) 12.8 % (11.5-14.5) Platelet Count 344 x10^3/uL (140-400) 333 x10^3/uL (140-400) Neutrophils (%) (Auto) 71 % (31-73) 66 % (31-73) Lymphocytes (%) (Auto) 16 % (24-48) 20 % (24-48) Monocytes (%) (Auto) 11 % (0-9) 12 % (0-9) Eosinophils (%) (Auto) 1 % (0-3) 2 % (0-3) Basophils (%) (Auto) 1 % (0-3) 0 % (0-3) Neutrophils # (Auto) 10.6 x10^3/uL (1.8-7.7) 8.6 x10^3/uL (1.8-7.7) Lymphocytes # (Auto) 2.4 x10^3/uL (1.0-4.8) 2.6 x10^3/uL (1.0-4.8) Monocytes # (Auto) 1.7 x10^3/uL (0.0-1.1) 1.5 x10^3/uL (0.0-1.1) Eosinophils # (Auto) 0.2 x10^3/uL (0.0-0.7) 0.2 x10^3/uL (0.0-0.7) Basophils # (Auto) 0.1 x10^3/uL (0.0-0.2) 0.0 x10^3/uL (0.0-0.2) Sodium Level 136 mmol/L (136-145) 133 mmol/L (136-145) Potassium Level 3.4 mmol/L (3.5-5.1) 3.0 mmol/L (3.5-5.1) Chloride Level 97 mmol/L (98-107) 96 mmol/L (98-107) Carbon Dioxide Level 25 mmol/L (21-32) 27 mmol/L (21-32) Anion Gap 14 (6-14) 10 (6-14) Blood Urea Nitrogen 14 mg/dL (7-20) 16 mg/dL (7-20) Creatinine 0.7 mg/dL (0.6-1.0) 0.9 mg/dL (0.6-1.0) Estimated GFR (Cockcroft-Gault) 89.3 66.8 BUN/Creatinine Ratio 20 (6-20) Glucose Level 59 mg/dL (70-99) 70 mg/dL (70-99) Calcium Level 8.4 mg/dL (8.5-10.1) 8.6 mg/dL (8.5-10.1) Total Bilirubin 1.2 mg/dL (0.2-1.0) Aspartate Amino Transf (AST/SGOT) 30 U/L (15-37) Alanine Aminotransferase (ALT/SGPT) 45 U/L (14-59) Alkaline Phosphatase 127 U/L (46-116) Total Protein 5.9 g/dL (6.4-8.2) Albumin 2.5 g/dL (3.4-5.0) Albumin/Globulin Ratio 0.7 (1.0-1.7) Laboratory Tests Test 10/19/19 03:45 White Blood Count 13.0 x10^3/uL (4.0-11.0) Red Blood Count 4.35 x10^6/uL (3.50-5.40) Hemoglobin 14.7 g/dL (12.0-15.5) Hematocrit 42.6 % (36.0-47.0) Mean Corpuscular Volume 98 fL (79-100) Mean Corpuscular Hemoglobin 34 pg (25-35) Mean Corpuscular Hemoglobin Concent 35 g/dL (31-37) Red Cell Distribution Width 12.8 % (11.5-14.5) Platelet Count 333 x10^3/uL (140-400) Neutrophils (%) (Auto) 66 % (31-73) Lymphocytes (%) (Auto) 20 % (24-48) Monocytes (%) (Auto) 12 % (0-9) Eosinophils (%) (Auto) 2 % (0-3) Basophils (%) (Auto) 0 % (0-3) Neutrophils # (Auto) 8.6 x10^3/uL (1.8-7.7) Lymphocytes # (Auto) 2.6 x10^3/uL (1.0-4.8) Monocytes # (Auto) 1.5 x10^3/uL (0.0-1.1) Eosinophils # (Auto) 0.2 x10^3/uL (0.0-0.7) Basophils # (Auto) 0.0 x10^3/uL (0.0-0.2) Sodium Level 133 mmol/L (136-145) Potassium Level 3.0 mmol/L (3.5-5.1) Chloride Level 96 mmol/L (98-107) Carbon Dioxide Level 27 mmol/L (21-32) Anion Gap 10 (6-14) Blood Urea Nitrogen 16 mg/dL (7-20) Creatinine 0.9 mg/dL (0.6-1.0) Estimated GFR (Cockcroft-Gault) 66.8 Glucose Level 70 mg/dL (70-99) Calcium Level 8.6 mg/dL (8.5-10.1) Problem List Problems Medical Problems: (1) Abdominal pain Status: Acute (2) Acute appendicitis Status: Acute (3) Elevated LFTs Status: Acute (4) Hypomagnesemia Status: Acute Assessment/Plan WBC 13, improving, afebrile some lethargy after Ambien ok for ADAT cbc in AM continue drain for now K replacement as per [facility] Justicifation of Admission Dx: Justifications for Admission: Justification of Admission Dx: Yes GIOVANNY KIM MD 10/19/19 1048: SURGICAL PROGRESS NOTE Assessment/Plan Agree with dAama assessment and plan HARMEET JI APRN Oct 19, 2019 10:01 GIOVANNY KIM MD Oct 19, 2019 10:48
[2019-10-19 11:00] VITALS: BP 110/76
[2019-10-19] MEDS: HYDROmorphone 2 MG/ML VIAL IVP PRN (11:58)
[2019-10-19] MEDS ORDERED: oxyCODONE/APAP 5/325 1 TAB TABLET PO PRN ×2 (14:30)
[2019-10-19 15:00] VITALS: BP 101/68
--- NOTE | 2019-10-19 17:22 | PDOC ---
PROGRESS NOTES Date of Service: DATE: 10/19/19 TIME: 17:21 Chief Complaint Chief Complaint Images: Images CT abdomen pelvis Impression: 1. There is evidence of acute appendicitis, no abscess or free air. 2. There is diffuse prominent hepatic steatosis. 3. There are bilateral renal cysts, some other smaller hypodense foci of the kidneys bilaterally too small to further accurately characterize. 4. There is a small left lower lobe noncalcified pulmonary nodule. If increased risk factors for neoplasm, optional 12 month follow-up could be performed as per revised Fleischner guidelines, no additional follow up needed if low risk factors. impression Assessment/Plan Acute abdominal pain due to acute appendicitis status post laparoscopic appendectomy 10/14/2019 Admit to medicine Pending surgical evaluation Likely OR in the morning tomorrow Continue IV morphine PRN Continue IV fluids Continue IV Zosyn Serial abdominal exams Follow-up blood cultures Lovenox for DVT prophylaxis ADA diet Full code Discussed with RN and SW Wendy OCTOR Surrogate decision maker is self Assessment/Plan Assessment/Plan Acute abdominal pain due to acute appendicitis pod # 2 10/15 VOMITED X 3 TODAY Admit to medicine Pending surgical evaluation Continue IV morphine PRN Continue IV fluids Continue IV Zosyn Serial abdominal exams Follow-up blood cultures Lovenox for DVT prophylaxis ADA diet Full code Discussed with RN Surrogate decision maker is self Justifications for Admission Justifications for Admission Other Justification History of Present Illness History of Present Illness Patient is a 49-year-old female with past medical history of hypothyroidism, pituitary mass status post resection, hype osteoporosis who presents with abdominal pain that started approximately 9:00 10/12. Patient is referred from a local urgent care and concern for possible appendicitis. Patient's pain is described as sharp and in the right lower quadrant. Pain is 10 out of 10. There is associated nausea vomiting. Patient has not eating anything since 10:00 last night. Denies shortness of breath, dysuria, bloody stools. There is no other exacerbating or alleviating factors 10/15/2019 No acute events overnight. Patient with some vomiting. IV Zofran PRN. Patient's chart, labs, images were reviewed and discussed with RN 10/17/2019 Patient states she is tolerating clears, denies any vomiting. Bowel function improving. Discussed with RN. 10/18/2019 Patient evaluated bedside. States the pain is improving. Tolerating clears. Had bowel movement this morning. Denies nausea or vomiting. Discussed with RN. 10/19/2019 Patient evaluated bedside. States the pain is tolerable tolerating clears. PEDRO drain with serous fluid. Denies nausea or vomiting. Discussed with RN, had episode of diarrhea overnight after receiving Ambien. Vitals Vitals Vital Signs Date Time Temp Pulse Resp B/P (MAP) Pulse Ox O2 Delivery O2 Flow Rate FiO2 10/19/19 15:00 98.0 78 18 101/68 (79) 93 Room Air 98.0 Physical Exam Physical Exam GEN: No apparent distress. Alert and oriented HEENT: Normal cephalic, atraumatic, external auditory canals are patent NECK: Supple, no JVD, no thyromegaly was noted LUNGS: Bilateral crackles HEART: RRR, S1, S2 present. Peripheral pulses intact, no obvious murmurs noted ABDOMEN: Soft, nontender. Positive bowel sounds, no organomegaly, normal bowel sounds. Laparoscopic incision sites are well healing. No bleeding EXTREMITIES: Without clubbing, cyanosis, or edema. Pedal pulses intact. Negative Homans sign General: Cooperative, Other (lethargic ) Heart: Regular rate, Normal S1, No murmurs Abdomen: Soft, Other (drain serous ) Extremities: No cyanosis, No edema Skin: No rashes Labs LABS Laboratory Tests Test 10/19/19 03:45 White Blood Count 13.0 x10^3/uL (4.0-11.0) Red Blood Count 4.35 x10^6/uL (3.50-5.40) Hemoglobin 14.7 g/dL (12.0-15.5) Hematocrit 42.6 % (36.0-47.0) Mean Corpuscular Volume 98 fL (79-100) Mean Corpuscular Hemoglobin 34 pg (25-35) Mean Corpuscular Hemoglobin Concent 35 g/dL (31-37) Red Cell Distribution Width 12.8 % (11.5-14.5) Platelet Count 333 x10^3/uL (140-400) Neutrophils (%) (Auto) 66 % (31-73) Lymphocytes (%) (Auto) 20 % (24-48) Monocytes (%) (Auto) 12 % (0-9) Eosinophils (%) (Auto) 2 % (0-3) Basophils (%) (Auto) 0 % (0-3) Neutrophils # (Auto) 8.6 x10^3/uL (1.8-7.7) Lymphocytes # (Auto) 2.6 x10^3/uL (1.0-4.8) Monocytes # (Auto) 1.5 x10^3/uL (0.0-1.1) Eosinophils # (Auto) 0.2 x10^3/uL (0.0-0.7) Basophils # (Auto) 0.0 x10^3/uL (0.0-0.2) Sodium Level 133 mmol/L (136-145) Potassium Level 3.0 mmol/L (3.5-5.1) Chloride Level 96 mmol/L (98-107) Carbon Dioxide Level 27 mmol/L (21-32) Anion Gap 10 (6-14) Blood Urea Nitrogen 16 mg/dL (7-20) Creatinine 0.9 mg/dL (0.6-1.0) Estimated GFR (Cockcroft-Gault) 66.8 Glucose Level 70 mg/dL (70-99) Calcium Level 8.6 mg/dL (8.5-10.1) Assessment and Plan Assessmemt and Plan Problems Medical Problems: (1) Abdominal pain Status: Acute (2) Acute appendicitis Status: Acute (3) Elevated LFTs Status: Acute (4) Hypomagnesemia Status: Acute Comment Review of Relevant I have reviewed the following items trinh (where applicable) has been applied. Labs Laboratory Tests Test 10/18/19 05:00 10/19/19 03:45 White Blood Count 15.0 x10^3/uL (4.0-11.0) 13.0 x10^3/uL (4.0-11.0) Red Blood Count 4.53 x10^6/uL (3.50-5.40) 4.35 x10^6/uL (3.50-5.40) Hemoglobin 15.6 g/dL (12.0-15.5) 14.7 g/dL (12.0-15.5) Hematocrit 45.1 % (36.0-47.0) 42.6 % (36.0-47.0) Mean Corpuscular Volume 100 fL (79-100) 98 fL (79-100) Mean Corpuscular Hemoglobin 34 pg (25-35) 34 pg (25-35) Mean Corpuscular Hemoglobin Concent 35 g/dL (31-37) 35 g/dL (31-37) Red Cell Distribution Width 12.6 % (11.5-14.5) 12.8 % (11.5-14.5) Platelet Count 344 x10^3/uL (140-400) 333 x10^3/uL (140-400) Neutrophils (%) (Auto) 71 % (31-73) 66 % (31-73) Lymphocytes (%) (Auto) 16 % (24-48) 20 % (24-48) Monocytes (%) (Auto) 11 % (0-9) 12 % (0-9) Eosinophils (%) (Auto) 1 % (0-3) 2 % (0-3) Basophils (%) (Auto) 1 % (0-3) 0 % (0-3) Neutrophils # (Auto) 10.6 x10^3/uL (1.8-7.7) 8.6 x10^3/uL (1.8-7.7) Lymphocytes # (Auto) 2.4 x10^3/uL (1.0-4.8) 2.6 x10^3/uL (1.0-4.8) Monocytes # (Auto) 1.7 x10^3/uL (0.0-1.1) 1.5 x10^3/uL (0.0-1.1) Eosinophils # (Auto) 0.2 x10^3/uL (0.0-0.7) 0.2 x10^3/uL (0.0-0.7) Basophils # (Auto) 0.1 x10^3/uL (0.0-0.2) 0.0 x10^3/uL (0.0-0.2) Sodium Level 136 mmol/L (136-145) 133 mmol/L (136-145) Potassium Level 3.4 mmol/L (3.5-5.1) 3.0 mmol/L (3.5-5.1) Chloride Level 97 mmol/L (98-107) 96 mmol/L (98-107) Carbon Dioxide Level 25 mmol/L (21-32) 27 mmol/L (21-32) Anion Gap 14 (6-14) 10 (6-14) Blood Urea Nitrogen 14 mg/dL (7-20) 16 mg/dL (7-20) Creatinine 0.7 mg/dL (0.6-1.0) 0.9 mg/dL (0.6-1.0) Estimated GFR (Cockcroft-Gault) 89.3 66.8 BUN/Creatinine Ratio 20 (6-20) Glucose Level 59 mg/dL (70-99) 70 mg/dL (70-99) Calcium Level 8.4 mg/dL (8.5-10.1) 8.6 mg/dL (8.5-10.1) Total Bilirubin 1.2 mg/dL (0.2-1.0) Aspartate Amino Transf (AST/SGOT) 30 U/L (15-37) Alanine Aminotransferase (ALT/SGPT) 45 U/L (14-59) Alkaline Phosphatase 127 U/L (46-116) Total Protein 5.9 g/dL (6.4-8.2) Albumin 2.5 g/dL (3.4-5.0) Albumin/Globulin Ratio 0.7 (1.0-1.7) Laboratory Tests Test 10/19/19 03:45 White Blood Count 13.0 x10^3/uL (4.0-11.0) Red Blood Count 4.35 x10^6/uL (3.50-5.40) Hemoglobin 14.7 g/dL (12.0-15.5) Hematocrit 42.6 % (36.0-47.0) Mean Corpuscular Volume 98 fL (79-100) Mean Corpuscular Hemoglobin 34 pg (25-35) Mean Corpuscular Hemoglobin Concent 35 g/dL (31-37) Red Cell Distribution Width 12.8 % (11.5-14.5) Platelet Count 333 x10^3/uL (140-400) Neutrophils (%) (Auto) 66 % (31-73) Lymphocytes (%) (Auto) 20 % (24-48) Monocytes (%) (Auto) 12 % (0-9) Eosinophils (%) (Auto) 2 % (0-3) Basophils (%) (Auto) 0 % (0-3) Neutrophils # (Auto) 8.6 x10^3/uL (1.8-7.7) Lymphocytes # (Auto) 2.6 x10^3/uL (1.0-4.8) Monocytes # (Auto) 1.5 x10^3/uL (0.0-1.1) Eosinophils # (Auto) 0.2 x10^3/uL (0.0-0.7) Basophils # (Auto) 0.0 x10^3/uL (0.0-0.2) Sodium Level 133 mmol/L (136-145) Potassium Level 3.0 mmol/L (3.5-5.1) Chloride Level 96 mmol/L (98-107) Carbon Dioxide Level 27 mmol/L (21-32) Anion Gap 10 (6-14) Blood Urea Nitrogen 16 mg/dL (7-20) Creatinine 0.9 mg/dL (0.6-1.0) Estimated GFR (Cockcroft-Gault) 66.8 Glucose Level 70 mg/dL (70-99) Calcium Level 8.6 mg/dL (8.5-10.1) Microbiology 10/13/19 Urine Culture - Final, Complete Medications Current Medications Fentanyl Citrate (Fentanyl 2ml Vial) 50 mcg 1X ONCE IVP Last administered on 10/13/19at 17:40; Start 10/13/19 at 17:15; Stop 10/13/19 at 17:18; Status DC Ondansetron HCl (Zofran) 4 mg 1X ONCE IVP Last administered on 10/13/19at 17:40; Start 10/13/19 at 17:15; Stop 10/13/19 at 17:18; Status DC Famotidine (Pepcid Vial) 20 mg 1X ONCE IVP Last administered on 10/13/19at 17:40; Start 10/13/19 at 17:15; Stop 10/13/19 at 17:18; Status DC Sodium Chloride 1,000 ml @ 1,000 mls/hr 1X ONCE IV Last administered on at 17:38; Start 10/13/19 at 17:30; Stop 10/13/19 at 18:29; Status DC Iohexol (Omnipaque 240 Mg/ml) 30 ml 1X ONCE PO Last administered on 10/13/19at 18:15; Start 10/13/19 at 18:15; Stop 10/13/19 at 18:18; Status DC Iohexol (Omnipaque 300 Mg/ml) 75 ml 1X ONCE IV Last administered on 10/13/19at 18:15; Start 10/13/19 at 18:15; Stop 10/13/19 at 18:18; Status DC Fentanyl Citrate (Fentanyl 2ml Vial) 50 mcg 1X ONCE IV Last administered on 10/13/19at 18:34; Start 10/13/19 at 18:45; Stop 10/13/19 at 18:46; Status DC Info (CONTRAST GIVEN -- Rx MONITORING) 1 each PRN DAILY PRN MC SEE COMMENTS; Start 10/13/19 at 18:30; Stop 10/15/19 at 18:29; Status DC Magnesium Sulfate 50 ml @ 25 mls/hr 1X ONCE IV Last administered on 10/13/19at 20:03; Start 10/13/19 at 19:30; Stop 10/13/19 at 21:29; Status DC Piperacillin Sod/ Tazobactam Sod 3.375 gm/Sodium Chloride 50 ml @ 100 mls/hr 1X ONCE IV ; Start 10/13/19 at 20:00; Stop 10/13/19 at 20:29; Status Cancel Morphine Sulfate (Morphine Sulfate) 4 mg 1X ONCE IV Last administered on 10/13/19at 19:37; Start 10/13/19 at 19:45; Stop 10/13/19 at 19:46; Status DC Ondansetron HCl (Zofran) 4 mg PRN Q8HRS PRN IV NAUSEA/VOMITING Last administered on 10/14/19at 11:16; Start 10/13/19 at 20:00; Stop 10/14/19 at 19:59; Status DC Morphine Sulfate (Morphine Sulfate) 4 mg PRN Q2HR PRN IV PAIN Last administered on 10/14/19at 11:17; Start 10/13/19 at 20:00; Stop 10/14/19 at 19:59; Status DC Sodium Chloride 1,000 ml @ 125 mls/hr Q8H IV Last administered on 10/14/19at 11:09; Start 10/13/19 at 19:53; Stop 10/14/19 at 19:52; Status DC Piperacillin Sod/ Tazobactam Sod 3.375 gm/Sodium Chloride 50 ml @ 100 mls/hr 1X IV ; Start 10/13/19 at 20:00; Stop 10/14/19 at 09:47; Status DC Enoxaparin Sodium (Lovenox 40mg Syringe) 40 mg Q24H SQ Last administered on 10/18/19at 22:02; Start 10/13/19 at 22:00 Piperacillin Sod/ Tazobactam Sod 3.375 gm/Sodium Chloride 50 ml @ 100 mls/hr Q6HRS IV Last administered on 10/19/19at 11:58; Start 10/14/19 at 10:00 Bupivacaine HCl/ Epinephrine Bitart (Sensorcain-Epi 0.5%-1:[id number] Mpf) 30 ml STK-MED ONCE .ROUTE Last administered on 10/14/19at 13:46; Start 10/14/19 at 10:32; Stop 10/14/19 at 10:32; Status DC Propofol (Diprivan) 200 mg STK-MED ONCE IV ; Start 10/14/19 at 12:12; Stop 10/14/19 at 12:12; Status DC Lidocaine HCl (Lidocaine Pf 2% Vial) 5 ml STK-MED ONCE .ROUTE ; Start 10/14/19 at 12:12; Stop 10/14/19 at 12:12; Status DC Dexamethasone Sodium Phosphate (Decadron) 4 mg STK-MED ONCE .ROUTE ; Start 10/14/19 at 12:12; Stop 10/14/19 at 12:12; Status DC Ondansetron HCl (Zofran) 4 mg STK-MED ONCE .ROUTE ; Start 10/14/19 at 12:12; Stop 10/14/19 at 12:12; Status DC Rocuronium [place] (Zemuron) 50 mg STK-MED ONCE .ROUTE ; Start 10/14/19 at 12:12; Stop 10/14/19 at 12:13; Status DC Succinylcholine Chloride (Anectine) 200 mg STK-MED ONCE .ROUTE ; Start 10/14/19 at 12:12; Stop 10/14/19 at 12:13; Status DC Midazolam HCl (Versed) 2 mg STK-MED ONCE .ROUTE ; Start 10/14/19 at 12:13; Stop 10/14/19 at 12:13; Status DC Fentanyl Citrate (Fentanyl 2ml Vial) 100 mcg STK-MED ONCE .ROUTE ; Start 10/14/19 at 12:13; Stop 10/14/19 at 12:13; Status DC Ondansetron HCl (Zofran) 4 mg PRN Q6HRS PRN IV NAUSEA/VOMITING Last administered on 10/15/19at 12:08; Start 10/14/19 at 12:45; Stop 10/15/19 at 12:44; Status DC Fentanyl Citrate (Fentanyl 2ml Vial) 25 mcg PRN Q5MIN PRN IV MILD PAIN 1-3; Start 10/14/19 at 12:45; Stop 10/15/19 at 12:44; Status DC Fentanyl Citrate (Fentanyl 2ml Vial) 50 mcg PRN Q5MIN PRN IV MODERATE TO SEVERE PAIN Last administered on 10/15/19at 12:03; Start 10/14/19 at 12:45; Stop 10/15/19 at 12:44; Status DC Morphine Sulfate (Morphine Sulfate) 1 mg PRN Q10MIN PRN IV SEVERE PAIN 7-10; Start 10/14/19 at 12:45; Stop 10/15/19 at 12:44; Status DC Ringer's Solution 1,000 ml @ 30 mls/hr Q24H IV ; Start 10/14/19 at 12:40; Stop 10/15/19 at 00:39; Status DC Lidocaine HCl (Xylocaine-Mpf 1% 2ml Vial) 2 ml PRN 1X PRN ID PRIOR TO IV START; Start 10/14/19 at 12:45; Stop 10/15/19 at 12:44; Status DC Hydromorphone HCl (Dilaudid) 0.5 mg PRN Q10MIN PRN IV SEV PAIN, Second choice; Start 10/14/19 at 12:45; Stop 10/15/19 at 12:44; Status DC Prochlorperazine Edisylate (Compazine) 5 mg PACU PRN PRN IV NAUSEA, MRX1; Start 10/14/19 at 12:45; Stop 10/15/19 at 12:44; Status DC Sevoflurane (Ultane) 60 ml STK-MED ONCE IH ; Start 10/14/19 at 13:46; Stop 10/14/19 at 13:46; Status DC Magnesium Sulfate 50 ml @ 25 mls/hr 1X ONCE IV ; Start 10/14/19 at 15:00; Stop 10/14/19 at 16:59; Status DC Glycopyrrolate (Robinul) 1 mg STK-MED ONCE .ROUTE ; Start 10/14/19 at 14:25; Stop 10/14/19 at 14:26; Status DC Neostigmine [place] (Neostigmine Methylsulfate) 5 mg STK-MED ONCE .ROUTE ; Start 10/14/19 at 14:26; Stop 10/14/19 at 14:26; Status DC Lactobacillus Rhamnosus (Culturelle) 1 cap BID PO ; Start 10/15/19 at 21:00; Stop 10/16/19 at 14:28; Status DC Ondansetron HCl (Zofran) 4 mg PRN Q4HRS PRN IVP NAUSEA/VOMITING Last administered on 10/18/19at 01:37; Start 10/15/19 at 13:30 Ondansetron HCl (Zofran) 4 mg 1X ONCE IVP Last administered on 10/15/19at 14:03; Start 10/15/19 at 14:00; Stop 10/15/19 at 14:01; Status DC Hydromorphone HCl (Dilaudid) 0.4 mg PRN Q2HR PRN IVP PAIN Last administered on 10/19/19at 11:58; Start 10/15/19 at 16:45; Stop 10/19/19 at 14:25; Status DC Iohexol (Omnipaque 300 Mg/ml) 60 ml 1X ONCE IV Last administered on 10/16/19at 11:03; Start 10/16/19 at 10:45; Stop 10/16/19 at 10:46; Status DC Info (CONTRAST GIVEN -- Rx MONITORING) 1 each PRN DAILY PRN MC SEE COMMENTS; Start 10/16/19 at 10:45; Stop 10/18/19 at 10:44; Status DC Potassium Chloride (Klor-Con) 40 meq 1X ONCE PO Last administered on 10/17/19at 15:04; Start 10/17/19 at 14:45; Stop 10/17/19 at 14:46; Status DC Zolpidem Tartrate (Ambien) 5 mg 1X ONCE PO Last administered on 10/18/19at 22:34; Start 10/18/19 at 23:00; Stop 10/18/19 at 23:01; Status DC Zolpidem Tartrate (Ambien) 5 mg 1X ONCE PO Last administered on 10/19/19at 00:14; Start 10/19/19 at 00:30; Stop 10/19/19 at 00:31; Status DC Oxycodone/ Acetaminophen (Percocet 5/325) 1 tab PRN Q4HRS PRN PO PAIN; Start 10/19/19 at 14:30 Oxycodone/ Acetaminophen (Percocet 5/325) 2 tab PRN Q4HRS PRN PO PAIN; Start 10/19/19 at 14:30 Active Scripts Active Cyclobenzaprine Hcl 10 Mg Tablet 10 Mg PO TID PRN 7 Days Naprosyn (Naproxen) 500 Mg Tablet 500 Mg PO BID Ocuflox (Ofloxacin) 5 Ml Drops 1 Drop OS QID Use during the day and while outside the home. Erythromycin (Erythromycin Base) 3.5 Gm Oint...g. 1 [place] OS BID Use at home and at night. Vitals/I & O Vital Sign - Last 24 Hours 10/18/19 10/18/19 10/18/19 10/19/19 19:00 20:30 23:00 03:00 Temp 98.8 98.4 98.9 98.8 98.4 98.9 Pulse 82 81 78 Resp 16 18 18 B/P (MAP) 96/68 (77) 97/69 (78) 104/74 (84) Pulse Ox 94 95 96 O2 Delivery Room Air Room Air Room Air Room Air 10/19/19 10/19/19 10/19/19 10/19/19 07:00 07:42 11:00 11:58 Temp 97.9 98.0 97.9 98.0 Pulse 54 60 Resp 18 18 B/P (MAP) 100/69 (79) 110/76 (87) Pulse Ox 94 94 O2 Delivery Room Air Room Air Room Air Room Air 10/19/19 10/19/19 12:45 15:00 Temp 98.0 98.0 Pulse 78 Resp 18 B/P (MAP) 101/68 (79) Pulse Ox 93 O2 Delivery Room Air Room Air Nutrition Consultation Dietary Evaluation: Recommendations by RD: Dietary education by RD, Increase Calorie Intake, Add supplement feedings Comments: Add ensure to all meals while on full liquid diet Expected Outcomes/Goals: Pt will meet 75% of needs PO on regular diet Malnutrition Findings: Food and Nutrition Intake (Sev: <50% est energy req 5days Body Fat Depletion (Non Severe: Mild Depletion Reduced Cash Accounting Clerk Strength (Non-Sev: N/A Weight Status: Appropriate Fluid Accumulation (N/A): N/A Justicifation of Admission Dx: Justifications for Admission: Justification of Admission Dx: Yes VONDA HESTER MD Oct 19, 2019 17:22
[2019-10-19 19:00] VITALS: BP 91/62
[2019-10-19] MEDS: ENOXAPARIN 40 MG/0.4 ML SYRINGE. SQ SCH (20:55)
[2019-10-19 23:00] VITALS: BP 90/60
[2019-10-20 03:00] VITALS: BP 90/57
[2019-10-20] MEDS: PIPERACILLIN/TAZOBACTAM 3.375 GM in IV NORMAL SALINE 50ML 50 ML IV SCH ×2 (05:36→12:00)
[2019-10-20 07:00] VITALS: BP 109/69
[2019-10-20 07:22] LABS: BASO # 0.1 x10^3/uL (0.0-0.2); BASO % 1 % (0-3); EOS # 0.1 x10^3/uL (0.0-0.7); EOS % 1 % (0-3); HEMATOCRIT 39.8 % (36.0-47.0); LYMPH # 2.3 x10^3/uL (1.0-4.8); LYMPH % 20 % (24-48); MEAN CORPUSCULAR HEMOGLOBIN 34 pg (25-35); MEAN CORPUSCULAR HGB CONC 35 g/dL (31-37); MEAN CORPUSCULAR VOLUME 98 fL (79-100); MONO # 1.4 x10^3/uL (0.0-1.1); MONO % 12 % (0-9); NEUT # 7.6 x10^3/uL (1.8-7.7); NEUT % 66 % (31-73); PLATELET COUNT 331 x10^3/uL (140-400); RED BLOOD COUNT 4.08 x10^6/uL (3.50-5.40); RED CELL DISTRIBUTION WIDTH 12.4 % (11.5-14.5); WHITE BLOOD COUNT 11.5 x10^3/uL (4.0-11.0)
[2019-10-20 07:32] LABS: CALCIUM 8.1 mg/dL (8.5-10.1); CREATININE 0.8 mg/dL (0.6-1.0); GFR 76.6; POTASSIUM 3.1 mmol/L (3.5-5.1)
--- NOTE | 2019-10-20 09:26 | NUR ---
SW following. Discussed with RN, pt advanced to GI soft diet. Still has PEDRO drain. RN advised no SW needs, anticipate possible discharge home today. SW will continue to follow, should any discharge needs arise.
[2019-10-20] MEDS ORDERED: OXYC1TAB15 PO (10:04)
[2019-10-20] MEDS ORDERED: AMOX1TAB61 PO (10:04)
--- NOTE | 2019-10-20 10:07 | PDOC ---
HARMEET JI POLISHER IMPLANT 10/20/19 1007: SURGICAL PROGRESS NOTE DATE: 10/20/19 TIME: 10:06 Subjective eating some pain managed currently no complaints Vital Signs Vital Signs Date Time Temp Pulse Resp B/P (MAP) Pulse Ox O2 Delivery O2 Flow Rate FiO2 10/20/19 07:00 98.3 69 16 109/69 (82) 96 Room Air 98.3 I&O Intake and Output 10/20/19 07:00 Intake Total 960 ml Output Total 105 ml Balance 855 ml Intake Oral 960 ml Drainage Total 105 ml # Voids 4 General: Alert, Oriented X3, Cooperative Abdomen: Soft, Other (lap dressings dry, drain serous ) Labs Laboratory Tests Test 10/19/19 03:45 10/20/19 06:47 White Blood Count 13.0 x10^3/uL (4.0-11.0) 11.5 x10^3/uL (4.0-11.0) Red Blood Count 4.35 x10^6/uL (3.50-5.40) 4.08 x10^6/uL (3.50-5.40) Hemoglobin 14.7 g/dL (12.0-15.5) 14.0 g/dL (12.0-15.5) Hematocrit 42.6 % (36.0-47.0) 39.8 % (36.0-47.0) Mean Corpuscular Volume 98 fL (79-100) 98 fL (79-100) Mean Corpuscular Hemoglobin 34 pg (25-35) 34 pg (25-35) Mean Corpuscular Hemoglobin Concent 35 g/dL (31-37) 35 g/dL (31-37) Red Cell Distribution Width 12.8 % (11.5-14.5) 12.4 % (11.5-14.5) Platelet Count 333 x10^3/uL (140-400) 331 x10^3/uL (140-400) Neutrophils (%) (Auto) 66 % (31-73) 66 % (31-73) Lymphocytes (%) (Auto) 20 % (24-48) 20 % (24-48) Monocytes (%) (Auto) 12 % (0-9) 12 % (0-9) Eosinophils (%) (Auto) 2 % (0-3) 1 % (0-3) Basophils (%) (Auto) 0 % (0-3) 1 % (0-3) Neutrophils # (Auto) 8.6 x10^3/uL (1.8-7.7) 7.6 x10^3/uL (1.8-7.7) Lymphocytes # (Auto) 2.6 x10^3/uL (1.0-4.8) 2.3 x10^3/uL (1.0-4.8) Monocytes # (Auto) 1.5 x10^3/uL (0.0-1.1) 1.4 x10^3/uL (0.0-1.1) Eosinophils # (Auto) 0.2 x10^3/uL (0.0-0.7) 0.1 x10^3/uL (0.0-0.7) Basophils # (Auto) 0.0 x10^3/uL (0.0-0.2) 0.1 x10^3/uL (0.0-0.2) Sodium Level 133 mmol/L (136-145) 133 mmol/L (136-145) Potassium Level 3.0 mmol/L (3.5-5.1) 3.1 mmol/L (3.5-5.1) Chloride Level 96 mmol/L (98-107) 96 mmol/L (98-107) Carbon Dioxide Level 27 mmol/L (21-32) 29 mmol/L (21-32) Anion Gap 10 (6-14) 8 (6-14) Blood Urea Nitrogen 16 mg/dL (7-20) 10 mg/dL (7-20) Creatinine 0.9 mg/dL (0.6-1.0) 0.8 mg/dL (0.6-1.0) Estimated GFR (Cockcroft-Gault) 66.8 76.6 Glucose Level 70 mg/dL (70-99) 70 mg/dL (70-99) Calcium Level 8.6 mg/dL (8.5-10.1) 8.1 mg/dL (8.5-10.1) Laboratory Tests Test 10/20/19 06:47 White Blood Count 11.5 x10^3/uL (4.0-11.0) Red Blood Count 4.08 x10^6/uL (3.50-5.40) Hemoglobin 14.0 g/dL (12.0-15.5) Hematocrit 39.8 % (36.0-47.0) Mean Corpuscular Volume 98 fL (79-100) Mean Corpuscular Hemoglobin 34 pg (25-35) Mean Corpuscular Hemoglobin Concent 35 g/dL (31-37) Red Cell Distribution Width 12.4 % (11.5-14.5) Platelet Count 331 x10^3/uL (140-400) Neutrophils (%) (Auto) 66 % (31-73) Lymphocytes (%) (Auto) 20 % (24-48) Monocytes (%) (Auto) 12 % (0-9) Eosinophils (%) (Auto) 1 % (0-3) Basophils (%) (Auto) 1 % (0-3) Neutrophils # (Auto) 7.6 x10^3/uL (1.8-7.7) Lymphocytes # (Auto) 2.3 x10^3/uL (1.0-4.8) Monocytes # (Auto) 1.4 x10^3/uL (0.0-1.1) Eosinophils # (Auto) 0.1 x10^3/uL (0.0-0.7) Basophils # (Auto) 0.1 x10^3/uL (0.0-0.2) Sodium Level 133 mmol/L (136-145) Potassium Level 3.1 mmol/L (3.5-5.1) Chloride Level 96 mmol/L (98-107) Carbon Dioxide Level 29 mmol/L (21-32) Anion Gap 8 (6-14) Blood Urea Nitrogen 10 mg/dL (7-20) Creatinine 0.8 mg/dL (0.6-1.0) Estimated GFR (Cockcroft-Gault) 76.6 Glucose Level 70 mg/dL (70-99) Calcium Level 8.1 mg/dL (8.5-10.1) Problem List Problems Medical Problems: (1) Abdominal pain Status: Acute (2) Acute appendicitis Status: Acute (3) Elevated LFTs Status: Acute (4) Hypomagnesemia Status: Acute Assessment/Plan stable surgically, can dc home with oral abx, dc drain when medically ready K low--replace as per IPC Justicifation of Admission Dx: Justifications for Admission: Justification of Admission Dx: Yes GIOVANNY KIM MD 10/20/19 1405: SURGICAL PROGRESS NOTE Assessment/Plan Agree with Galan assessment plan HARMEET JI APRN Oct 20, 2019 10:07 GIOVANNY KIM MD Oct 20, 2019 14:05
--- NOTE | 2019-10-20 10:49 | NUR ---
Drain dc'd per order by surgery. Patient tolerated intervention well. Will continue to monitor.
[2019-10-20 11:00] VITALS: BP 106/68
--- NOTE | 2019-10-20 14:05 | PDOC ---
[facility] PROGRESS NOTE Date of Service DOS: DATE: 10/20/19 TIME: 14:03 Chief Complaint Chief Complaint Images: Images CT abdomen pelvis Impression: 1. There is evidence of acute appendicitis, no abscess or free air. 2. There is diffuse prominent hepatic steatosis. 3. There are bilateral renal cysts, some other smaller hypodense foci of the kidneys bilaterally too small to further accurately characterize. 4. There is a small left lower lobe noncalcified pulmonary nodule. If increased risk factors for neoplasm, optional 12 month follow-up could be performed as per revised Fleischner guidelines, no additional follow up needed if low risk factors. impression Assessment/Plan Acute abdominal pain due to acute appendicitis status post laparoscopic appendectomy 10/14/2019 Admit to medicine Pending surgical evaluation Likely OR in the morning tomorrow Continue IV morphine PRN Continue IV fluids Continue IV Zosyn Serial abdominal exams Follow-up blood cultures Lovenox for DVT prophylaxis ADA diet Full code Discussed with RN and Wendy OCTOR Surrogate decision maker is self Assessment/Plan Assessment/Plan Acute abdominal pain due to acute appendicitis pod # 2 10/15 VOMITED X 3 TODAY Admit to medicine Pending surgical evaluation Continue IV morphine PRN Continue IV fluids Continue IV Zosyn Serial abdominal exams Follow-up blood cultures Lovenox for DVT prophylaxis ADA diet Full code Discussed with RN Surrogate decision maker is self Justifications for Admission Justifications for Admission Other Justification History of Present Illness History of Present Illness Patient is a 49-year-old female with past medical history of hypothyroidism, pituitary mass status post resection, hype osteoporosis who presents with abdominal pain that started approximately 9:00 10/12. Patient is referred from a local urgent care and concern for possible appendicitis. Patient's pain is described as sharp and in the right lower quadrant. Pain is 10 out of 10. There is associated nausea vomiting. Patient has not eating anything since 10:00 last night. Denies shortness of breath, dysuria, bloody stools. There is no other exacerbating or alleviating factors 10/15/2019 No acute events overnight. Patient with some vomiting. IV Zofran PRN. Patient's chart, labs, images were reviewed and discussed with RN 10/17/2019 Patient states she is tolerating clears, denies any vomiting. Bowel function improving. Discussed with RN. 10/18/2019 Patient evaluated bedside. States the pain is improving. Tolerating clears. Had bowel movement this morning. Denies nausea or vomiting. Discussed with RN. 10/19/2019 Patient evaluated bedside. States the pain is tolerable tolerating clears. PEDRO drain with serous fluid. Denies nausea or vomiting. Discussed with RN, had episode of diarrhea overnight after receiving Ambien. 10/20/2019 Patient evaluated at bedside. She denies significant pain. Tolerating a full diet. PEDRO drain was pulled today. She stable for discharge home. Vitals/I&O Vitals/I&O: Vital Signs Date Time Temp Pulse Resp B/P (MAP) Pulse Ox O2 Delivery O2 Flow Rate FiO2 10/20/19 11:00 98.3 66 16 106/68 (81) 97 Room Air 98.3 I & O 10/19/19 10/19/19 10/20/19 15:00 23:00 07:00 Intake Total 420 ml 240 ml 300 ml Output Total 80 ml 25 ml Balance 420 ml 160 ml 275 ml Physical Exam Physical Exam: GEN: No apparent distress. Alert and oriented HEENT: Normal cephalic, atraumatic, external auditory canals are patent NECK: Supple, no JVD, no thyromegaly was noted LUNGS: Bilateral crackles HEART: RRR, S1, S2 present. Peripheral pulses intact, no obvious murmurs noted ABDOMEN: Soft, nontender. Positive bowel sounds, no organomegaly, normal bowel sounds. Laparoscopic incision sites are well healing. No bleeding EXTREMITIES: Without clubbing, cyanosis, or edema. Pedal pulses intact. Neg ative Homans sign General: Alert, Oriented X3, Cooperative Heart: Regular rate, Normal S1, No murmurs Abdomen: Soft, Other (lap dressings dry, drain serous ) Extremities: No cyanosis, No edema Skin: No rashes Labs Labs: Laboratory Tests Test 10/20/19 06:47 White Blood Count 11.5 x10^3/uL (4.0-11.0) Red Blood Count 4.08 x10^6/uL (3.50-5.40) Hemoglobin 14.0 g/dL (12.0-15.5) Hematocrit 39.8 % (36.0-47.0) Mean Corpuscular Volume 98 fL (79-100) Mean Corpuscular Hemoglobin 34 pg (25-35) Mean Corpuscular Hemoglobin Concent 35 g/dL (31-37) Red Cell Distribution Width 12.4 % (11.5-14.5) Platelet Count 331 x10^3/uL (140-400) Neutrophils (%) (Auto) 66 % (31-73) Lymphocytes (%) (Auto) 20 % (24-48) Monocytes (%) (Auto) 12 % (0-9) Eosinophils (%) (Auto) 1 % (0-3) Basophils (%) (Auto) 1 % (0-3) Neutrophils # (Auto) 7.6 x10^3/uL (1.8-7.7) Lymphocytes # (Auto) 2.3 x10^3/uL (1.0-4.8) Monocytes # (Auto) 1.4 x10^3/uL (0.0-1.1) Eosinophils # (Auto) 0.1 x10^3/uL (0.0-0.7) Basophils # (Auto) 0.1 x10^3/uL (0.0-0.2) Sodium Level 133 mmol/L (136-145) Potassium Level 3.1 mmol/L (3.5-5.1) Chloride Level 96 mmol/L (98-107) Carbon Dioxide Level 29 mmol/L (21-32) Anion Gap 8 (6-14) Blood Urea Nitrogen 10 mg/dL (7-20) Creatinine 0.8 mg/dL (0.6-1.0) Estimated GFR (Cockcroft-Gault) 76.6 Glucose Level 70 mg/dL (70-99) Calcium Level 8.1 mg/dL (8.5-10.1) Review of Systems Review of Systems: Denies abdominal pain, denies nausea, denies vomiting, denies fever. Assessment and Plan Assessmemt and Plan Problems Medical Problems: (1) Abdominal pain Status: Acute (2) Acute appendicitis Status: Acute (3) Elevated LFTs Status: Acute (4) Hypomagnesemia Status: Acute Comment Review of Relevant I have reviewed the following items trinh (where applicable) has been applied. Justifications for Admission Other Justification VONDA HESTER MD Oct 20, 2019 14:05
--- NOTE | 2019-10-20 14:08 | PDOC3 ---
Discharge Summary Visit Information Date of Admission: Oct 13, 2019 Date of Discharge: Oct 20, 2019 Final Diagnosis Problems Medical Problems: (1) Abdominal pain Status: Acute (2) Acute appendicitis Status: Acute (3) Elevated LFTs Status: Acute (4) Hypomagnesemia Status: Acute Brief Hospital Course Allergies Allergies Coded Allergies Type Severity Reaction Last Updated Verified No Known Drug Allergies 10/18/15 No Vital Signs Vital Signs Date Time Temp Pulse Resp B/P (MAP) Pulse Ox O2 Delivery O2 Flow Rate FiO2 10/20/19 11:00 98.3 66 16 106/68 (81) 97 Room Air 98.3 Lab Results Laboratory Tests Test 10/19/19 03:45 10/20/19 06:47 White Blood Count 13.0 x10^3/uL (4.0-11.0) 11.5 x10^3/uL (4.0-11.0) Red Blood Count 4.35 x10^6/uL (3.50-5.40) 4.08 x10^6/uL (3.50-5.40) Hemoglobin 14.7 g/dL (12.0-15.5) 14.0 g/dL (12.0-15.5) Hematocrit 42.6 % (36.0-47.0) 39.8 % (36.0-47.0) Mean Corpuscular Volume 98 fL (79-100) 98 fL (79-100) Mean Corpuscular Hemoglobin 34 pg (25-35) 34 pg (25-35) Mean Corpuscular Hemoglobin Concent 35 g/dL (31-37) 35 g/dL (31-37) Red Cell Distribution Width 12.8 % (11.5-14.5) 12.4 % (11.5-14.5) Platelet Count 333 x10^3/uL (140-400) 331 x10^3/uL (140-400) Neutrophils (%) (Auto) 66 % (31-73) 66 % (31-73) Lymphocytes (%) (Auto) 20 % (24-48) 20 % (24-48) Monocytes (%) (Auto) 12 % (0-9) 12 % (0-9) Eosinophils (%) (Auto) 2 % (0-3) 1 % (0-3) Basophils (%) (Auto) 0 % (0-3) 1 % (0-3) Neutrophils # (Auto) 8.6 x10^3/uL (1.8-7.7) 7.6 x10^3/uL (1.8-7.7) Lymphocytes # (Auto) 2.6 x10^3/uL (1.0-4.8) 2.3 x10^3/uL (1.0-4.8) Monocytes # (Auto) 1.5 x10^3/uL (0.0-1.1) 1.4 x10^3/uL (0.0-1.1) Eosinophils # (Auto) 0.2 x10^3/uL (0.0-0.7) 0.1 x10^3/uL (0.0-0.7) Basophils # (Auto) 0.0 x10^3/uL (0.0-0.2) 0.1 x10^3/uL (0.0-0.2) Sodium Level 133 mmol/L (136-145) 133 mmol/L (136-145) Potassium Level 3.0 mmol/L (3.5-5.1) 3.1 mmol/L (3.5-5.1) Chloride Level 96 mmol/L (98-107) 96 mmol/L (98-107) Carbon Dioxide Level 27 mmol/L (21-32) 29 mmol/L (21-32) Anion Gap 10 (6-14) 8 (6-14) Blood Urea Nitrogen 16 mg/dL (7-20) 10 mg/dL (7-20) Creatinine 0.9 mg/dL (0.6-1.0) 0.8 mg/dL (0.6-1.0) Estimated GFR (Cockcroft-Gault) 66.8 76.6 Glucose Level 70 mg/dL (70-99) 70 mg/dL (70-99) Calcium Level 8.6 mg/dL (8.5-10.1) 8.1 mg/dL (8.5-10.1) Laboratory Tests Test 10/20/19 06:47 White Blood Count 11.5 x10^3/uL (4.0-11.0) Red Blood Count 4.08 x10^6/uL (3.50-5.40) Hemoglobin 14.0 g/dL (12.0-15.5) Hematocrit 39.8 % (36.0-47.0) Mean Corpuscular Volume 98 fL (79-100) Mean Corpuscular Hemoglobin 34 pg (25-35) Mean Corpuscular Hemoglobin Concent 35 g/dL (31-37) Red Cell Distribution Width 12.4 % (11.5-14.5) Platelet Count 331 x10^3/uL (140-400) Neutrophils (%) (Auto) 66 % (31-73) Lymphocytes (%) (Auto) 20 % (24-48) Monocytes (%) (Auto) 12 % (0-9) Eosinophils (%) (Auto) 1 % (0-3) Basophils (%) (Auto) 1 % (0-3) Neutrophils # (Auto) 7.6 x10^3/uL (1.8-7.7) Lymphocytes # (Auto) 2.3 x10^3/uL (1.0-4.8) Monocytes # (Auto) 1.4 x10^3/uL (0.0-1.1) Eosinophils # (Auto) 0.1 x10^3/uL (0.0-0.7) Basophils # (Auto) 0.1 x10^3/uL (0.0-0.2) Sodium Level 133 mmol/L (136-145) Potassium Level 3.1 mmol/L (3.5-5.1) Chloride Level 96 mmol/L (98-107) Carbon Dioxide Level 29 mmol/L (21-32) Anion Gap 8 (6-14) Blood Urea Nitrogen 10 mg/dL (7-20) Creatinine 0.8 mg/dL (0.6-1.0) Estimated GFR (Cockcroft-Gault) 76.6 Glucose Level 70 mg/dL (70-99) Calcium Level 8.1 mg/dL (8.5-10.1) Brief Hospital Course Ms. Duong is a 49 old female who presented with acute appendicitis. Consultation was placed to general surgery. She had a laparoscopic appendectomy. Her hospital course was complicated by ileus, which progressed with supportive care. Patient was gradually able to tolerate diet and stable for discharge home. Assessment Assessment Acute appendicitis Discharge Information Condition at Discharge: Improved Disposition/Orders: D/C to Home Scheduled Erythromycin Base (Erythromycin) 3.5 Gm Oint...g., 1 OZIEL OS BID, #3.5 Use at home and at night. Prescribed by: SOPHIE HELM on 10/19/15 0002 Naproxen (Naprosyn) 500 Mg Tablet, 500 MG PO BID, #20 Prescribed by: ALE KELLY APRN on 06/01/17 2341 Ofloxacin (Ocuflox) 5 Ml Drops, 1 DROP OS QID, #1 Use during the day and while outside the home. Prescribed by: SOPHIE HELM on 10/19/15 0002 Scheduled PRN Cyclobenzaprine Hcl (Cyclobenzaprine Hcl) 10 Mg Tablet, 10 MG PO TID PRN for PAIN for 7 Days, #21 Prescribed by: SEGUNDO HUYNH APRN on 04/20/19 1807 Oxycodone/Apap 5-325 (Percocet 5-325 Mg Tablet ) 1 Each Tablet, 1 TAB PO PRN Q4HRS PRN for PAIN, #30 Ref 0 Prescribed by: Farideh Galvan on 10/20/19 1004 Justicifation of Admission Dx: Justifications for Admission: Justification of Admission Dx: Yes VONDA HESTER MD Oct 20, 2019 14:08
[2019-10-20 15:00] VITALS: BP 110/66
[2019-10-20] MEDS ORDERED: POTASSIUM CHLORIDE 20 MEQ TABLET.ER. PO ONE (15:00)
--- NOTE | 2019-10-20 16:41 | NUR ---
Discharge Note: [employer] Discharge instructions and discharge home medications reviewed with Patient and a copy given. All questions have been answered and understanding verbalized. The following instructions and handouts were given: discharge instructions, new prescriptions, education and follow up recommendations. Discontinued lines and drains: PEDRO drain, and Peripheral discontinued IV intact. Patient discharged to Home or Self Care with Spouse via Wheelchair off unit by BEL.
[2019-10-20] MEDS ORDERED: LACTOBACILLUS RHAMNOSUS GG 1 CAPSULE. PO SCH (21:00)
== END 2019-10-20 16:45 | disposition home or self-care (01) | DRG 343 ==
LOC: ER 17:09 → 4 NORTH 19:47
PROVIDERS: ADMIT Internal Medicine; ATTEND Internal Medicine
PROC: 0DTJ4ZZ Resection of Appendix, Percutaneous Endoscopic Approach (ICD-10-PCS; principal; 2019-10-14 13:15)
DX: K35.891 Other acute appendicitis without perforation, with gangrene (principal); Z20.828 Contact with and (suspected) exposure to other viral communicable diseases; E03.9 Hypothyroidism, unspecified; E78.00 Pure hypercholesterolemia, unspecified; E83.42 Hypomagnesemia; K76.0 Fatty (change of) liver, not elsewhere classified; M81.0 Age-related osteoporosis without current pathological fracture
CPT/HCPCS: 36415; 74018; 74160; 74177; 80048; 80053; 81001; 83605; 83690; 83735; 85007; 85025; 85610; 85730; 87086; 87426; 88304; 96361; 96365; 96375; 96376; A7015; J0330; J1100; J1170; J1650; J2250; J2270; J2405; J2543; J2704; J2710; J3010; J3475; J3490; J7030; J7120; Q9966; Q9967; 99285-25; G0378; U0003-CS